=== PATIENT | female | born 2000 | race Caucasian/White ===

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

== ENCOUNTER 2018-03-04 15:39 | Observation (INO) | payer MEDICARE, MEDICAID ==
--- NOTE | 2018-03-04 16:19 | RAD ---
INDICATION: Weakness COMPARISON: October 25, 2015 TECHNIQUE: An AP portable view obtained at 1600 hours is submitted. FINDINGS: Bones/Soft Tissues: There are no acute bony findings. There is a scoliotic deformity. There is a right-sided dual-lumen dialysis catheter Cardiomediastinal: The cardiomediastinal silhouette is normal. Lungs: There are no infiltrates. Pleura: There are no pleural effusions. Other: None IMPRESSION: LUNGS CLEAR. NO ACTIVE DISEASE.
[2018-03-04 16:32] LABS: ABS Basophils 0.1 10^3/ul (0-0.2); ABS Eosinophils 0.1 10^3/ul (0-0.6); ABS Lymphocytes 1.4 10^3/ul (1.0-4.8); ABS Monocytes 0.5 10^3/ul (0-0.8); ABS Nucleated RBC 0 10^3/ul; Eosinophil % 0.7 % (0-6); Hematocrit 38 % (35-47); Hemoglobin 12.7 g/dl (12.0-16.0); Lymphocyte % 15.1 % (25-47); Mean Corpuscular HGB Conc 33 g/dl (31-36); Mean Corpuscular Hemoglobin 32 pg (27-31); Mean Corpuscular Volume 96 fL (80-97); Nucleated Red Blood Cells % 0; Platelet Count 374 10^3/ul (150-450); Red Blood Count 3.99 10^6/ul (4.00-5.40); Red Cell Distribution Width 16 % (10.5-15)
[2018-03-04 16:43] LABS: INR 0.94 (0.77-1.02)
[2018-03-04 16:52] LABS: EGFR Non-African American 7.1 (>60)
[2018-03-04] MEDS ORDERED: Calcium CHLORIDE 10% SYRINGE* 1 GM in D5W 100 ML BAG* 100 ML IV ONE (17:12)
[2018-03-04] MEDS ORDERED: Sodium Bicarbonate 8.4%* 50 ML SYRINGE IV ONE (17:13)
[2018-03-04] MEDS ORDERED: Insulin REGULAR(*) 1 UNITS UNIT IV PUSH ONE (17:14)
[2018-03-04] MEDS ORDERED: Dextrose 50% Syringe 50 ML* 25 GM/50 ML SYRINGE IV PUSH ONE (17:14)
[2018-03-04] MEDS ORDERED: Albuterol 2.5 MG/3 ML NEB.SOL* (0.083%) INH ONE (17:15)
[2018-03-04] MEDS ORDERED: Sodium Polystyrene ORAL.SOL* 15 GM/60 ML BTL PO ONE (17:30)
[2018-03-04] MEDS ORDERED: Acetaminophen TAB* 325 MG PO PRN (17:32)
[2018-03-04] MEDS ORDERED: Al Hydrox/Mg Hydrox/Simet LIQ* 30 ML UDC PO PRN (17:32)
[2018-03-04] MEDS ORDERED: Magnesium Hydroxide LIQ* 30 ML UDC PO PRN (17:32)
[2018-03-04] MEDS ORDERED: Albuterol 2.5 MG/3 ML NEB.SOL* (0.083%) INH PRN (17:32)
[2018-03-04] MEDS ORDERED: Polyethylene Glycol 3350* 17 GM PACKET PO PRN (17:37)
[2018-03-04] MEDS ORDERED: Ondansetron TAB* 4 MG PO PRN (17:37)
--- NOTE | 2018-03-04 18:02 | ED ---
Jeremy Fernández Tiffany, scribed for Ramon Michelle on 03/04/18 at 1606 . Complex/Multi-Sys Presentation - HPI Summary HPI Summary: 17 year old F BIBA to [facility] complains of weakness that began one hour ago. Symptoms aggravated by nothing. Symptoms alleviated by nothing. Patient reports lightheadedness, fatigue, inability to ambulate. Denies fever, cough, abdominal pain, chest pain. Patient has been on hemodialysis since 2007 for renal disease. - History Of Current Complaint Chief Complaint: EDGeneral Time Seen by Provider: 03/04/18 15:42 Hx Obtained From: Patient Onset/Duration: Lasting Hours - 1, Still Present Timing: Constant Aggravating Factor(s): Nothing Alleviating Factor(s): Nothing Associated Signs And Symptoms: Positive: Other - lightheadedness, fatigue, inability to ambulate; fever, cough, abdominal pain, chest pain - Allergies/Home Medications Allergies/Adverse Reactions: Allergies Allergy/AdvReac Type Severity Reaction Status Date / Time No Known Allergies Allergy Verified 03/28/17 04:34 Home Medications: Home Medications Cinacalcet TAB* [Sensipar TAB*] 30 mg PO TID 03/04/18 [History Confirmed ] Lisinopril TAB* [Prinivil TAB*] 5 mg PO DAILY 03/04/18 [History Confirmed ] Ondansetron TAB* [Zofran 4 MG Tab*] 8 mg PO Q8HR PRN 03/04/18 [History Confirmed 03/04/18] Venlafaxine EXT RELEASE CAP* [Effexor Xr CAP*] 75 mg PO QAM 03/04/18 [History Confirmed 03/04/18] PMH/Surg Hx/FS Hx/Imm Hx Previously Healthy: No Cardiovascular History: Reports: Hx Hypertension Respiratory History: Denies: Hx Asthma History: Reports: Hx Renal Disease, Other Problems/Disorders - UTI post kidney transplant, failed kidney transplant Psychiatric History: Denies: Hx Eating Disorder, Hx of Violent Episodes Against Others - Surgical History Surgery Procedure, Year, and Place: s/p kidney transplant surgery 3 yrs ago, failed. appendectomy - Immunization History Date of Tetanus Vaccine: Unk Date of Influenza Vaccine: Fall 2014 Infectious Disease History: No Infectious Disease History: Denies: Traveled Outside the [place] in Last 30 Days - Family History Known Family History: Positive: Hypertension, Other - schizophrenia Negative: Cardiac Disease, Diabetes - Social History Alcohol Use: None Hx Substance Use: No Substance Use Type: Reports: None Hx Tobacco Use: No Smoking Status (MU): Never Smoked Tobacco Review of Systems Positive: Fatigue. Negative: Fever Negative: Chest Pain Negative: Cough Negative: Abdominal Pain Neurological: Other - lightheadedness, inability to ambulate Positive: Weakness All Other Systems Reviewed And Are Negative: Yes Physical Exam - Summary Physical Exam Summary: Appearance: Well appearing, no pain distress Skin: warm, dry, reflects adequate perfusion Head/face: normal Eyes: EOMI, GONZALO ENT: dry mucous membranes Neck: supple, non-tender Respiratory: CTA, breath sounds present Cardiovascular: RRR, pulses symmetrical Chest: patient has catheter on her right chest Abdomen: non-tender, soft Bowel: present Musculoskeletal: patient has a cast on her left forearm Neuro: normal, sensory motor intact, A&Ox3 Triage Information Reviewed: Yes Vital Signs On Initial Exam: Initial Vitals Temp Pulse Resp BP Pulse Ox 98 F 82 16 117/76 99 03/04/18 15:42 03/04/18 15:42 03/04/18 15:42 03/04/18 15:42 03/04/18 15:42 Vital Signs Reviewed: Yes Diagnostics - Vital Signs Vital Signs Temp Pulse Resp BP Pulse Ox 03/04/18 15:42 98 F 82 16 117/76 99 - Laboratory Lab Results: Lab Results 03/04/18 03/04/18 03/04/18 Range/Units 16:19 16:19 16:19 WBC 9.0 (3.5-10.8) 10^3/ul RBC 3.99 L (4.00-5.40) 10^6/ul Hgb 12.7 (12.0-16.0) g/dl Hct 38 (35-47) % MCV 96 (80-97) fL MCH 32 H (27-31) pg MCHC 33 (31-36) g/dl RDW 16 H (10.5-15) % Plt Count 374 (150-450) 10^3/ul MPV 8.0 (7.4-10.4) um3 Neut % (Auto) 77.6 (38-83) % Lymph % (Auto) 15.1 L (25-47) % Morrow % (Auto) 5.9 (0-7) % Eos % (Auto) 0.7 (0-6) % Baso % (Auto) 0.7 (0-2) % Absolute Neuts (auto) 7.0 (1.5-7.7) 10^3/ul Absolute Lymphs (auto) 1.4 (1.0-4.8) 10^3/ul Absolute Monos (auto) 0.5 (0-0.8) 10^3/ul Absolute Eos (auto) 0.1 (0-0.6) 10^3/ul Absolute Basos (auto) 0.1 (0-0.2) 10^3/ul Absolute Nucleated RBC 0 10^3/ul Nucleated RBC % 0 INR (Anticoag Therapy) 0.94 (0.77-1.02) APTT 34.3 (26.0-36.3) seconds Sodium 132 L (135-145) mmol/L Potassium 8.4 H* (3.5-5.0) mmol/L Chloride 88 L (101-111) mmol/L Carbon Dioxide 28 (22-32) mmol/L Anion Gap 16 H (2-11) mmol/L BUN 46 H (6-24) mg/dL Creatinine 7.36 H (0.51-0.95) mg/dL Est GFR ( Amer) 8.6 (>60) Est GFR (Non-Af Amer) 7.1 (>60) BUN/Creatinine Ratio 6.3 L (8-20) Glucose 94 (70-100) mg/dL Lactic Acid (0.5-2.0) mmol/L Calcium 9.5 (8.6-10.3) mg/dL Magnesium 2.5 (1.9-2.7) mg/dL Total Bilirubin 0.40 (0.2-1.0) mg/dL AST 16 (13-39) U/L ALT 9 (7-52) U/L Alkaline Phosphatase 303 H (34-104) U/L Troponin I 0.01 (<0.04) ng/mL B-Natriuretic Peptide ( - 100) pg/mL Total Protein 9.0 H (6.4-8.9) g/dL Albumin 4.8 (3.2-5.2) g/dL Globulin 4.2 H (2-4) g/dL Albumin/Globulin Ratio 1.1 (1-3) Beta HCG, Quant 15.06 mIU/mL 03/04/18 03/04/18 Range/Units 16:19 16:19 WBC (3.5-10.8) 10^3/ul RBC (4.00-5.40) 10^6/ul Hgb (12.0-16.0) g/dl Hct (35-47) % MCV (80-97) fL MCH (27-31) pg MCHC (31-36) g/dl RDW (10.5-15) % Plt Count (150-450) 10^3/ul MPV (7.4-10.4) um3 Neut % (Auto) (38-83) % Lymph % (Auto) (25-47) % Morrow % (Auto) (0-7) % Eos % (Auto) (0-6) % Baso % (Auto) (0-2) % Absolute Neuts (auto) (1.5-7.7) 10^3/ul Absolute Lymphs (auto) (1.0-4.8) 10^3/ul Absolute Monos (auto) (0-0.8) 10^3/ul Absolute Eos (auto) (0-0.6) 10^3/ul Absolute Basos (auto) (0-0.2) 10^3/ul Absolute Nucleated RBC 10^3/ul Nucleated RBC % INR (Anticoag Therapy) (0.77-1.02) APTT (26.0-36.3) seconds Sodium (135-145) mmol/L Potassium (3.5-5.0) mmol/L Chloride (101-111) mmol/L Carbon Dioxide (22-32) mmol/L Anion Gap (2-11) mmol/L BUN (6-24) mg/dL Creatinine (0.51-0.95) mg/dL Est GFR ( Amer) (>60) Est GFR (Non-Af Amer) (>60) BUN/Creatinine Ratio (8-20) Glucose (70-100) mg/dL Lactic Acid 1.3 (0.5-2.0) mmol/L Calcium (8.6-10.3) mg/dL Magnesium (1.9-2.7) mg/dL Total Bilirubin (0.2-1.0) mg/dL AST (13-39) U/L ALT (7-52) U/L Alkaline Phosphatase (34-104) U/L Troponin I (<0.04) ng/mL B-Natriuretic Peptide 408 H ( - 100) pg/mL Total Protein (6.4-8.9) g/dL Albumin (3.2-5.2) g/dL Globulin (2-4) g/dL Albumin/Globulin Ratio (1-3) Beta HCG, Quant mIU/mL Result Diagrams: 03/04/18 16:19 03/04/18 16:19 Lab Statement: Any lab studies that have been ordered have been reviewed, and results considered in the medical decision making process. - Radiology CXR Radiology Interpretation Completed By: Radiologist - LUNGS CLEAR. NO ACTIVE DISEASE. ED physician has reviewed this report. - EKG 15:43 Cardiac Rate: NL - 79 BPM EKG Rhythm: Sinus Rhythm EKG Interpretation: No acute changes. EKG Comparison: Other - tall t waves Complex Multi-Symp Course/Dx Course Of Treatment: 17 year old F BIBA to [facility] complains of weakness that began one hour ago. Bloodwork obtained, showing potassium 8.4. CXR/EKG obtained. Dr. Akers, patient's director of analytical development, advises to send patient to ICU, where he will get her on emergency dialysis. Dr. Kulkarni, hospitalist, agrees to admit patient. - Diagnoses Differential Diagnoses/HQI/PQRI: Metabolic Abnormality, Other - hyperkalemia/ weakness Provider Diagnoses: Hyperkalemia, End stage renal disease, Weakness, Renal dialysis status - Physician Notifications Discussed Care Of Patient With: Juan Alberto Akers Time Discussed With Above Provider: 17:12 Instructed by Provider To: Other - Dr. Akers, nephrology, advises to send patient to ICU and he agrees to get patient to dialysis. Dr. Kulkarni, hospitalist , agrees to admit patient at 17:24. - Critical Care Time Critical Care Time: 30-74 min - 30 minutes Discharge - Sign-Out/Discharge Documenting (check all that apply): Discharge/Admit/Transfer - Admit - Discharge Plan Condition: Critical Disposition: ADMITTED TO [facility] Referrals: Louann Plascencia DO [Doctor of Osteopathy] - - Billing Disposition and Condition Condition: CRITICAL Disposition: Admitted to [facility] The documentation as recorded by the Jeremy cruz Tiffany accurately reflects the service I personally performed and the decisions made by , Ramon Michelle.
[2018-03-04] MEDS ORDERED: Dextrose 50% Syringe 50 ML* 25 GM/50 ML SYRINGE ONE (19:08)
[2018-03-04] MEDS ORDERED: Heparin DIALYSIS ONLY(*) 1,000 UNITS/ML VIAL DIALYSIS ONE (20:00)
[2018-03-04] MEDS: Cinacalcet TAB* 30 MG PO SCH (21:24)
[2018-03-04] MEDS: Labetalol TAB* 200 MG PO SCH (21:24)
--- NOTE | 2018-03-04 21:34 | HP ---
CC: Dr. Akers * ADMISSION HISTORY AND PHYSICAL: DATE OF ADMISSION: 03/04/18 PATIENT OF: Dr. Diallo Kulkarni.* (DICTATED BY MAURIZIO MCQUEEN) PRIMARY AN/SYQ 13 NAV/C2 OPERATOR: Dr. Akers. CHIEF COMPLAINT: Hyperkalemia. HISTORY OF PRESENT ILLNESS: Ms. Swain is a 17-year-old female with past medical history significant for end-stage renal disease for which she has been on dialysis for a period of time. Fortunately, she had a transplant done in 2014 that lasted approximately a year, but unfortunately failed due to noncompliant with her medication and she resumed hemodialysis almost 2 years ago. She presented to the emergency room earlier today with complaints of feeling lightheadedness, fatigue, inability to ambulate, and was found in the ED to have an elevated potassium of 8.4. The patient had her hemodialysis session yesterday and she reports that she felt well afterwards. She went to a birthday constitution party and had excessive amounts of potato chips, fruits, fruit juice, and other potassium-rich diet that she knows well she has to avoid. She got up this morning and noticed some symptoms of lightheadedness, fatigue, but denied any fever, cough, chest pain, or shortness of breath. She has been on hemodialysis since 2007 for a renal disease. 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 Akers. Given her severely elevated potassium, she was given Kayexalate in the emergency room in addition to normal saline, insulin, and dextrose 50 g. The emergency room provider has contacted Dr. Akers, who will send the hemodialysis team to the ICU tonight to perform an urgent hemodialysis session for the patient. Given her ongoing symptoms and elevated potassium, we were asked to see the patient for evaluation and for admission considering hemodialysis tonight. PAST MEDICAL HISTORY: As mentioned above, significant for end-stage renal disease for which she has been on hemodialysis since 2007. She had a kidney transplant that failed a year later and resumed dialysis approximately 2 years ago. PAST SURGICAL HISTORY: Significant for appendectomy and kidney transplant surgery 3 years ago. CURRENT MEDICATIONS: Her medications at home include: 1. Sensipar 30 mg p.o. t.i.d. 2. Trandate 200 mg p.o. b.i.d. 3. Lisinopril 5 mg p.o. daily. 4. Zofran 8 mg p.o. q.8 hours as needed for nausea. 5. MiraLAX 17 g packets p.o. daily. 6. Venlafaxine 75 mg p.o. daily. ALLERGIES: She has no known drug allergies. FAMILY HISTORY: Denies any family history of malignancies; however, reports family history of hypertension and kidney disease. SOCIAL HISTORY: The patient is a nonsmoker. Denies alcohol intake. Caffeine intake is minimal. She lives with her parents and her mom is the healthcare proxy carrier. REVIEW OF SYSTEMS: See HPI. Otherwise 14-point review of systems was discussed and essentially negative. PHYSICAL EXAMINATION GENERAL: She is a pleasant young female, appears comfortable, and in no acute distress or discomfort at the time of admission. VITAL SIGNS: Reveal temperature of 97.7, pulse of 101, blood pressure of 182/ 126, respirations of 18, and O2 sat of 100% on room air. HEENT: Head is normocephalic, atraumatic. Sclerae anicteric. PERRLA. EOMs intact. Oropharynx is pink and moist. NECK: Supple. Trachea midline. No cervical adenopathy or thyromegaly. LUNGS: Clear to auscultation bilaterally. HEART: Regular rate with sinus tachycardia noted. No rubs, murmurs, or gallops. BACK: With normal curvature. No CVA tenderness. BREASTS: Exam deferred at this time. ABDOMEN: Soft, nontender, and nondistended. No hernias, masses, or hepatosplenomegaly. EXTREMITIES: Without cyanosis, clubbing, or edema. NEUROLOGIC: Grossly intact. RECTAL: Exam deferred at this time. LABORATORY DATA: CBC today with white count of 9000, hemoglobin 12.7, hematocrit 38, and platelets of 374. Chemistry panel with sodium of 132, potassium 8.4, chloride 88, CO2 28, BUN 46, and creatinine of 7.36. Alkaline phosphatase is 303, remainder of LFTs within normal limits. Her lipase was elevated at 408. ACCESSORY DIAGNOSTIC DATA: Chest x-ray done today revealed no acute findings. IMPRESSION: A 17-year-old female with end-stage renal disease, who is currently on hemodialysis, presented to the emergency room with symptoms of lightheadedness and fatigue, found to have severe hyperkalemia, and has been admitted to the ICU for observation and to undergo a hemodialysis session tonight. PLAN/RECOMMENDATIONS: 1. End-stage renal disease. The patient will be admitted for close monitoring in the ICU. She appears to be stable at this time. No complaints of chest pain or palpitation. She had sufficient medication to reverse her hyperkalemia including normal saline, insulin, dextrose, and Kayexalate, and the hemodialysis team is en route for hemodialysis session to be performed tonight. We would repeat her labs in the morning to document resolution of hyperkalemia. 2. Hypertension. We will continue her lisinopril and labetalol. 3. DVT prophylaxis. She is a low risk. We will encourage early ambulation. 4. Code status. She is a full code. TIME SPENT: Approximately 45 minutes was spent admitting this patient with greater than 50% taking history and performing physical exam. I discussed the case with Dr. Kulkarni, my attending, who agreed to plan of care and we will await her hemodialysis session and observe her tonight in ICU. MAURIZIO MCQUEEN [id number]/[facility] #: [id number] IRISH
[2018-03-05 04:58] LABS: ABS Basophils 0.1 10^3/ul (0-0.2); ABS Eosinophils 0.1 10^3/ul (0-0.6); ABS Lymphocytes 1.5 10^3/ul (1.0-4.8); ABS Monocytes 0.5 10^3/ul (0-0.8); ABS Neutrophils 4.6 10^3/ul (1.5-7.7); ABS Nucleated RBC 0 10^3/ul; Eosinophil % 1.2 % (0-6); Hematocrit 36 % (35-47); Hemoglobin 11.9 g/dl (12.0-16.0); Mean Corpuscular HGB Conc 33 g/dl (31-36); Mean Corpuscular Hemoglobin 31 pg (27-31); Mean Corpuscular Volume 95 fL (80-97); Mean Platelet Volume 7.9 um3 (7.4-10.4); Nucleated Red Blood Cells % 0; Platelet Count 321 10^3/ul (150-450); Red Cell Distribution Width 16 % (10.5-15); White Blood Count 6.6 10^3/ul (3.5-10.8)
[2018-03-05 05:04] LABS: EGFR Non-African American 10.5 (>60)
[2018-03-05] MEDS: Labetalol TAB* 200 MG PO SCH (07:32)
[2018-03-05 07:38] VITALS: BP 155/118
[2018-03-05] MEDS: Cinacalcet TAB* 30 MG PO SCH (08:42)
[2018-03-05] MEDS ORDERED: Lisinopril TAB* 5 MG PO SCH (09:00)
[2018-03-05] MEDS ORDERED: Venlafaxine EXT RELEASE CAP* 75 MG PO SCH (09:00)
--- NOTE | 2018-03-05 15:57 | DS ---
CC: Dr. Akers DISCHARGE SUMMARY: DATE OF ADMISSION: 03/04/18 DATE OF DISCHARGE: 03/05/18 HISTORY OF PRESENT ILLNESS: This 17-year-old woman was admitted for hyperkalemia. The day after her dialysis session on her off day, she went to a birthday constitution party and ate fruit juice, potato chips, and other items that she knew she was not supposed to be eating. She felt weak and lightheaded. Her pot assium was 8.4 in the emergency room. She was admitted to the ICU and had emergency hemodialysis the next morning. She also had 30 g of Kayexalate the next morning. Her potassium was 4.5. She showed good understanding of what had happened. She said this has happened to her once before in fact she is going to go directly from the ICU to her outpatient hemodialysis session. All her medications wer e kept the same. Her blood pressure was somewhat high in the emergency room and during this hospital stay, this can be accounted for by stress and this is being carefully monitored at the hemodialysis clinic. FINAL DIAGNOSES: 1. Endstage renal disease with hyperkalemia due to dietary indiscretion. 2. Hypertension. DISCHARGE MEDICATIONS: 1. Labetalol 200 mg b.i.d. 2. Polyethylene glycol 17 g daily p.r.n. 3. Lisinopril 5 mg daily. 4. Cinacalcet 30 mg t.i.d. 5. Venlafaxine ER 75 mg daily. 6. Ondansetron 8 mg p.o. every 8 hours p.r.n. [id number]/[facility] #: [id number]
== END 2018-03-05 09:00 | disposition home or self-care (01) ==
LOC: ED 15:39 → ICU 17:32
PROVIDERS: ADMIT Internal Medicine; ATTEND Internal Medicine
DX: E87.5 Hyperkalemia (principal); I12.0 Hypertensive chronic kidney disease with stage 5 chronic kidney disease or end stage renal disease; N18.6 End stage renal disease; Z99.2 Dependence on renal dialysis; R94.31 Abnormal electrocardiogram [ECG] [EKG]; Z94.0 Kidney transplant status
CPT/HCPCS: 36415; 71045; 80053; 83605; 83735; 83880; 84132; 84484; 84702; 85025; 85610; 85730; 87641; 90935; 93005; 96365; 96366; 99284; A9270-GY; G0378; J1644

== ENCOUNTER 2018-03-06 18:37 | Emergency (ER) | payer MEDICARE, OTHER, MEDICAID ==
--- NOTE | 2018-03-06 20:35 | RAD ---
Indication: Nausea, shortness of breath. Dialysis patient. Cardiovascular disease. Comparison: March 04, 2018 Technique: Upright AP 2005 hours Report: Distal tip of tunneled RIGHT chest wall hemodialysis catheter at level of RIGHT atrium. No focal pulmonary lesion, compelling alveolar consolidation, pleural effusion, pneumothorax. Top normal heart size. Unremarkable central pulmonary vasculature and mediastinal contours. IMPRESSION: #. No evidence for acute intrathoracic disease.
[2018-03-06 21:05] LABS: ABS Basophils 0 10^3/ul (0-0.2); ABS Eosinophils 0.1 10^3/ul (0-0.6); ABS Lymphocytes 1.1 10^3/ul (1.0-4.8); ABS Monocytes 0.5 10^3/ul (0-0.8); ABS Neutrophils 9.4 10^3/ul (1.5-7.7); ABS Nucleated RBC 0 10^3/ul; Eosinophil % 1.1 % (0-6); Hematocrit 33 % (35-47); Hemoglobin 10.8 g/dl (12.0-16.0); Lymphocyte % 9.7 % (25-47); Mean Corpuscular HGB Conc 33 g/dl (31-36); Mean Corpuscular Hemoglobin 32 pg (27-31); Mean Corpuscular Volume 96 fL (80-97); Mean Platelet Volume 8.6 um3 (7.4-10.4); Nucleated Red Blood Cells % 0.1; Platelet Count 293 10^3/ul (150-450); Red Blood Count 3.44 10^6/ul (4.00-5.40); Red Cell Distribution Width 16 % (10.5-15); White Blood Count 11.1 10^3/ul (3.5-10.8)
[2018-03-06 21:13] LABS: INR 0.87 (0.77-1.02)
[2018-03-06 21:15] LABS: EGFR Non-African American 5.9 (>60)
[2018-03-06] MEDS ORDERED: Sodium Polystyrene ORAL.SOL* 15 GM/60 ML BTL PO ONE (21:43)
[2018-03-06] MEDS ORDERED: cloNIDine TAB* 0.1 MG ONE (22:38)
--- NOTE | 2018-03-06 22:43 | ED ---
Douglas Fernández Jade, scribed for Ramon Michelle on 03/06/18 at 2004 . Complex/Multi-Sys Presentation - HPI Summary HPI Summary: Pt is a 17 y/o female who presents to the ED c/o fluid retention. She was released from [facility] yesterday after being admitted for a K+ level of 8.4. Pt has a PMHx of chronic renal failure, and a failed kidney transplant. Pt normally gets dialysis every Friday, , and Friday. Her last dialysis was 2 days ago (Friday) but she claims they did not get enough fluid out during her two hour treatment. Pt also did not get her normal treatment the day after. At work today, she started to have SOB, chest tightness, LE edema, diaphoresis, and felt as if she was going to pass out. Pt states she is 10 lbs over her dry weight. - History Of Current Complaint Chief Complaint: EDGeneral Time Seen by Provider: 03/06/18 19:49 Hx Obtained From: Patient Onset/Duration: Gradual Onset, Still Present Timing: Constant Aggravating Factor(s): Lack of proper dialysis Associated Signs And Symptoms: Positive: SOB, Diaphoresis - Allergies/Home Medications Allergies/Adverse Reactions: Allergies Allergy/AdvReac Type Severity Reaction Status Date / Time No Known Allergies Allergy Verified 03/28/17 04:34 PMH/Surg Hx/FS Hx/Imm Hx Cardiovascular History: Reports: Hx Hypertension Respiratory History: Denies: Hx Asthma History: Reports: Hx Chronic Renal Failure, Hx Dialysis, Hx Renal Disease, Other Problems/Disorders - UTI post kidney transplant, failed kidney transplant Sensory History: Denies: Hx Contacts or Glasses, Hx Hearing Aid Opthamlomology History: Denies: Hx Contacts or Glasses Psychiatric History: Denies: Hx Eating Disorder, Hx of Violent Episodes Against Others - Surgical History Surgery Procedure, Year, and Place: s/p kidney transplant surgery 3 yrs ago, failed. appendectomy - Immunization History Date of Tetanus Vaccine: Unk Date of Influenza Vaccine: Fall 2014 Infectious Disease History: No Infectious Disease History: Denies: Traveled Outside the [place] in Last 30 Days - Family History Known Family History: Positive: Hypertension, Other - schizophrenia Negative: Cardiac Disease, Diabetes - Social History Alcohol Use: None Hx Substance Use: No Substance Use Type: Reports: None Hx Tobacco Use: No Smoking Status (MU): Never Smoked Tobacco Review of Systems Positive: Skin Diaphoresis Positive: Other - LE edema Positive: Shortness Of Breath, Other - Chest tightness Positive: Syncope - Near-syncope All Other Systems Reviewed And Are Negative: Yes Physical Exam - Summary Physical Exam Summary: Appearance: Well appearing, no pain distress Skin: warm, dry, reflects adequate perfusion. Fistula on left palm and Tesio catheter on right chest. Head/face: normal Eyes: EOMI, GONZALO ENT: normal Neck: supple, non-tender Respiratory: CTA, breath sounds present Cardiovascular: RRR, pulses symmetrical Abdomen: non-tender, soft Bowel: present Musculoskeletal: normal, strength/ROM intact Neuro: normal, sensory motor intact, A&Ox3 Triage Information Reviewed: Yes Vital Signs On Initial Exam: Initial Vitals Temp Pulse Resp BP Pulse Ox 98 F 90 18 157/114 100 03/06/18 18:54 03/06/18 18:54 03/06/18 18:54 03/06/18 18:54 03/06/18 18:54 Vital Signs Reviewed: Yes Diagnostics - Vital Signs Vital Signs Temp Pulse Resp BP Pulse Ox 03/06/18 18:54 98 F 90 18 157/114 100 - Laboratory Result Diagrams: 03/06/18 20:48 03/06/18 20:48 Lab Statement: Any lab studies that have been ordered have been reviewed, and results considered in the medical decision making process. - Radiology CXR Xray Interpretation: No Acute Changes - 19:58 No evidence for acute intrathoracic disease. ED physician reviewed radiology report. Radiology Interpretation Completed By: Radiologist - EKG 21:02 Cardiac Rate: NL - 80 bpm EKG Rhythm: Sinus Rhythm EKG Interpretation: No acute changes Complex Multi-Symp Course/Dx Course Of Treatment: Pt is a 17 y/o female c/o fluid retention who was released from [facility] yesterday after being admitted for a K+ level of 8.4. Pt has a PMHx of chronic renal failure, and a failed kidney transplant. Today she started to have SOB, chest tightness, LE edema, diaphoresis, and near-syncope after not getting her proper dialysis. A physical exam revealed a fistula on left palm and Tesio catheter on right chest. A CXR was normal, and an EKG was normal with sinus rhythm and normal rate of 80 bpm. Blood work/UA obtained. At 21:43 Dr. Jimenez was consulted, who said the pt can be discharged and have her normal dialysis tomorrow. Final dx are end stage renal disease and hyperkalemia. Pt is agreeable with this plan. - Diagnoses Differential Diagnoses/HQI/PQRI: Metabolic Abnormality, Other - esrd on hd Provider Diagnoses: End stage renal disease, Hyperkalemia - Physician Notifications Discussed Care Of Patient With: Azalea Jimenez Time Discussed With Above Provider: 21:43 Instructed by Provider To: Other - Pt is fine to be sent home and is to have dialysis treatment tomorrow. Discharge - Sign-Out/Discharge Documenting (check all that apply): Discharge/Admit/Transfer - Discharge - Discharge Plan Condition: Stable Disposition: HOME Patient Education Materials: Hyperkalemia (ED), End Stage Kidney Disease (ED) Referrals: [facility] PHYSICIAN REFERRAL [Outside] - 3 Days Azalea Jimenez MD [Medical Doctor] - 1 Day - Billing Disposition and Condition Condition: STABLE Disposition: Home The documentation as recorded by the Douglas cruz Jade accurately reflects the service I personally performed and the decisions made by , Ramon Michelle.
[2018-03-06] MEDS ORDERED: cloNIDine TAB* 0.1 MG PO ONE (22:44)
[2018-03-06] MEDS ORDERED: Labetalol TAB* 200 MG PO ONE (22:47)
[2018-03-06] MEDS ORDERED: Lisinopril TAB* 5 MG PO ONE (22:47)
[2018-03-06] MEDS ORDERED: NIFEdipine CAP* 10 MG PO ONE (22:47)
[2018-03-07 01:34] VITALS: BP 109/60
== END 2018-03-07 01:35 | disposition home or self-care (01) ==
LOC: ED 18:37
DX: I12.0 Hypertensive chronic kidney disease with stage 5 chronic kidney disease or end stage renal disease (principal); N18.6 End stage renal disease; T86.12 Kidney transplant failure; E87.5 Hyperkalemia; Z99.2 Dependence on renal dialysis
CPT/HCPCS: 36415; 71045; 80053; 83880; 84484; 85025; 85610; 85730; 93005; 99284; A9270-GY

== ENCOUNTER 2018-04-03 19:12 | Inpatient (IN) | payer MEDICARE, MEDICAID ==
[2018-04-03] MEDS ORDERED: Morphine VIAL* 4 MG/ML VIAL (1 ml vial) IV ONE ×2 (19:58→22:37)
[2018-04-03] MEDS ORDERED: Acetaminophen TAB* 325 MG PO ONE (19:58)
[2018-04-03] MEDS ORDERED: Vancomycin(*) 1,000 MG in NS 0.9% 250 ML* 250 ML IVPB ONE (19:59)
[2018-04-03] MEDS ORDERED: cefTRIAXone(*) 1 GM in NS 0.9% 50 ML* 50 ML IVPB ONE (19:59)
--- NOTE | 2018-04-03 20:01 | ED ---
Headache - HPI Summary HPI Summary: A 17 y/o F presents to ED with FLORES onset three days ago and worsening today. Pt is on dialysis (fistula on LUE), last treatment was yesterday AM. Associated sx : diaphoresis, subjective fever, mild photophobia, elevated BP, weakness, tremors. Denies diarrhea, nausea. Pt took nausea medicine GLASS [employer]. Pt is on her mentrual cycle so is unsure if she's having abd pain unrelated to that. She relates that her nurse yesterday said there was a "spot' on her fistula, provider reviewed at bedside. Pt cannot have IBP due to dialysis treatment. She has been on dialysis for 10 years, an episode of strep throat progressed to kidney failure. This is scribe, Sidney Guthrie, documenting for attending Dr. Mauri MD. - History Of Current Complaint Chief Complaint: EDHeadache Stated Complaint: SHAKY/SOB/DIALYSIS PATIENT Time Seen by Provider: 04/03/18 19:56 Hx Obtained From: Patient, Family/Supervisor [employer] - family present Onset/Duration: Gradual Onset, Started days ago, Still Present Initially Headache Was: Mild Currently Pain Is: Current Pain Scale(0-10)= - 7, Moderate Timing: Constant Character: Throbbing - and aching Aggravating Factor: Bright Lights Associated Signs And Symptoms: Fever, Visual Changes - photophobia - Allergies/Home Medications Allergies/Adverse Reactions: Allergies Allergy/AdvReac Type Severity Reaction Status Date / Time ibuprofen Allergy GI Upset Verified 04/04/18 08:45 PMH/Surg Hx/FS Hx/Imm Hx Previously Healthy: No Cardiovascular History: Reports: Hx Hypertension Respiratory History: Denies: Hx Asthma History: Reports: Hx Chronic Renal Failure, Hx Dialysis, Hx Renal Disease, Other Problems/Disorders - UTI post kidney transplant, failed kidney transplant Sensory History: Denies: Hx Contacts or Glasses, Hx Hearing Aid Opthamlomology History: Denies: Hx Contacts or Glasses Psychiatric History: Denies: Hx Eating Disorder, Hx of Violent Episodes Against Others - Surgical History Surgery Procedure, Year, and Place: s/p kidney transplant surgery 3 yrs ago, failed. appendectomy - Immunization History Date of Tetanus Vaccine: Unk Date of Influenza Vaccine: Fall 2014 Immunizations Up to Date: Yes Infectious Disease History: Yes Infectious Disease History: Denies: Traveled Outside the [place] in Last 30 Days - Family History Known Family History: Positive: Hypertension, Other - schizophrenia Negative: Cardiac Disease, Diabetes - Social History Occupation: Student Lives: With Family Alcohol Use: None Hx Substance Use: No Substance Use Type: Reports: None Hx Tobacco Use: No Smoking Status (MU): Never Smoked Tobacco Review of Systems Positive: Fever, Skin Diaphoresis Positive: Photophobia Positive: Other - elevated BP Negative: Diarrhea, Nausea Musculoskeletal: Other - tremors Positive: Other - fistula on LUE Positive: Headache, Weakness All Other Systems Reviewed And Are Negative: Yes Physical Exam - Summary Physical Exam Summary: Appearance: Well-appearing, Well-nourished, lying in bed comfortably. Feverish. Dialysis fistula has good thrill Skin: Warm, dry, no obvious rash Eyes: sclera anicteric, no conjunctival pallor ENT: mucous membranes moist, pharynx appears normal Neck: Supple, nontender. No meningismus. Respiratory: Clear to auscultation, no signs of respiratory distress Cardiovascular: Normal S1, S2. No murmurs. Normal distal pulses in tibial and radial bilaterally. Tachycardic. HTN 163/130. Abdomen: Soft, nontender, normal active bowel sounds present Musculoskeletal: Normal, Strength/ROM Intact Neurological: A&Ox3, awake and alert, mentation is normal, speech is fluent and appropriate Psychiatric: affect is normal, does not appear anxious or depressed Triage Information Reviewed: Yes Vital Signs On Initial Exam: Initial Vitals Temp Pulse Resp BP Pulse Ox 101 F 118 26 163/130 100 04/03/18 19:13 04/03/18 19:13 04/03/18 19:13 04/03/18 19:13 04/03/18 19:13 Vital Signs Reviewed: Yes Diagnostics - Vital Signs Vital Signs Temp Pulse Resp BP Pulse Ox 04/03/18 19:27 177/123 04/03/18 19:13 101 F 118 26 163/130 100 - Laboratory Result Diagrams: 04/03/18 20:54 04/04/18 04:30 Lab Statement: Any lab studies that have been ordered have been reviewed, and results considered in the medical decision making process. - Radiology CXR Xray Interpretation: No Acute Changes - IMPRESSION: No active dz. ED physician has reviewed this radiology report and agrees. Radiology Interpretation Completed By: Radiologist - EKG 2152 Cardiac Rate: Tachycardia - 108bpm EKG Rhythm: Sinus Tachycardia EKG Interpretation: QRS waves without significant T-wave peaking Headache Course/Dx - Diagnoses Provider Diagnoses: Fever, Line sepsis associated with dialysis catheter, Hypertensive urgency, Hyperkalemia - Physician Notifications Discussed Care Of Patient With: Manjeet Ziegler - hospitalist Time Discussed With Above Provider: 22:20 Instructed by Provider To: Admit As Inpatient - Critical Care Time Critical Care Time: 30-74 min - Gentleman on hemodialysis with acute fever suggestive of sepsis, possible line sepsis, associated with marked hyperkalemia , fortunately without significant EKG changes. Patient required frequent re- evaluations and emergent management of her hyperkalemia. Discharge - Sign-Out/Discharge Documenting (check all that apply): Patient Departure - Discharge Plan Condition: Stable Disposition: ADMITTED TO [facility] - Billing Disposition and Condition Condition: STABLE Disposition: Admitted to [facility]
[2018-04-03] MEDS ORDERED: Diazepam TAB(*) 5 MG PO ONE (20:07)
[2018-04-03] MEDS ORDERED: Morphine VIAL* 10 MG/ML 1 ML VIAL ONE (20:22)
[2018-04-03] MEDS ORDERED: cefTRIAXone(*) 1 GM ADVAN/BAG ONE (20:23)
[2018-04-03 21:06] LABS: ABS Basophils 0 10^3/ul (0-0.2); ABS Eosinophils 0 10^3/ul (0-0.6); ABS Lymphocytes 0.4 10^3/ul (1.0-4.8); ABS Monocytes 0.7 10^3/ul (0-0.8); ABS Neutrophils 7.1 10^3/ul (1.5-7.7); ABS Nucleated RBC 0 10^3/ul; Eosinophil % 0.3 % (0-6); Hematocrit 42 % (35-47); Hemoglobin 13.6 g/dl (12.0-16.0); Lymphocyte % 5.3 % (25-47); Mean Corpuscular HGB Conc 32 g/dl (31-36); Mean Corpuscular Hemoglobin 30 pg (27-31); Mean Corpuscular Volume 94 fL (80-97); Mean Platelet Volume 8.4 um3 (7.4-10.4); Nucleated Red Blood Cells % 0; Platelet Count 225 10^3/ul (150-450); Red Blood Count 4.48 10^6/ul (4.00-5.40); Red Cell Distribution Width 15 % (10.5-15); White Blood Count 8.3 10^3/ul (3.5-10.8)
[2018-04-03] MEDS ORDERED: diPHENhydraMINE IV* 50 MG/ML 1 ml VIAL (BENADRYL) ONE (21:20)
[2018-04-03 21:22] LABS: INR 0.9 (0.77-1.02)
[2018-04-03 21:26] LABS: EGFR Non-African American 4.7 (>60)
[2018-04-03] MEDS ORDERED: Dextrose 50% VIAL 50 ml IV ONE (21:32)
[2018-04-03] MEDS ORDERED: Insulin REGULAR(*) 1 UNITS UNIT IV PUSH ONE (21:32)
[2018-04-03] MEDS ORDERED: Sodium Polystyrene ORAL.SOL* 15 GM/60 ML BTL PO ONE (21:33)
[2018-04-03] MEDS ORDERED: Dextrose 50% Syringe 50 ML* 25 GM/50 ML SYRINGE IV PUSH ONE (22:00)
--- NOTE | 2018-04-03 22:04 | RAD ---
INDICATION: Fever COMPARISON: March 06, 2018 TECHNIQUE: PA and lateral dual-energy views were obtained. FINDINGS: Bones/Soft Tissues: There are no acute bony findings. There is a right-sided central venous catheter. There is ORIF of a midshaft humeral fracture Cardiomediastinal: The cardiomediastinal silhouette is normal. Lungs: There are no infiltrates. Pleura: There are no pleural effusions. Other: None IMPRESSION: NO ACTIVE DISEASE. R1
--- NOTE | 2018-04-03 23:07 | HP ---
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 She reports onset 3 days ago of typical hypertensive headache with mild photophobia. She denies F/C, sweats, N/V/D, SOB , cough, visual changes, or other issues. The headache worsened today making her concerned as she has had a seizure in the past 2nd hypertensive emergency. She reports some soreness at the posterior base of the skull, but has full, easy active & passive ROM. ED evaluation is notable for BP in the 160-170 systolics and a K of 7.5 with mild/mod peaking of T-waves. She does admit to dietary indiscretion over the past few days involving increased dairy intake. She has been give insulin/glucose, & kayexalate in the ED. There was initially some concern for potential meningitis held by the ED provider and so blood CXs were drawn and she was dosed with vancomycin & ceftriaxone. However, I do not hold any significant suspicion at this time. Her WBCs are 8.3, vitals are stable, & she is afebrile. No indication for further ABX at this time. She will be placed in the ICU for close monitoring of her vitals, serial electrolyte checks, & Q1H glucometry to prevent hypoglycemia. Dr Akers was consulted via phone and agreed with discharge to outpatient dialysis earlier in the morning. 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 since failed 2nd non-adherence HTN 2nd above HX hypertensive emergency w/ seizure depression/anxiety Ambulatory Orders Labetalol TAB* [Trandate TAB*] 200 mg PO BID 07/26/15 Polyethylene Glycol 3350* [Miralax*] 17 gm PO DAILY PRN 10/25/15 Cinacalcet TAB* [Sensipar TAB*] 30 mg PO TID 03/04/18 Lisinopril TAB* [Prinivil TAB 5 MG*] 5 mg PO DAILY 03/04/18 Ondansetron TAB* [Zofran 4 MG Tab*] 8 mg PO Q8HR PRN 03/04/18 Venlafaxine EXT RELEASE CAP* [Effexor Xr CAP*] 75 mg PO QAM 03/04/18 Allergies No Known Allergies Allergy (Verified 03/28/17 04:34) PSurgHx renal transplant appendectomy LUE hemodialysis fistula R anterior chest tunnelled HD catheter SocHx: no tobacco, alcohol, or recreational drugs; single, no children, lives with her parents; disabled; full code status FamHx: positive for HTN & renal disease ROS: as above, otherwise reviewed and all were negative vitals: Vital Signs Temp 38.3 C 04/03/18 19:13 Pulse 119 04/03/18 21:27 Resp 20 04/03/18 21:27 BP 170/121 04/03/18 21:27 Pulse Ox 91 04/03/18 21:27 Intake & Output 04/02/18 04/03/18 04/03/18 23:59 11:59 23:59 Intake Total 100 Balance 100 Weight 47.627 kg Intake: IV Fluids 50 IVPB 50 Constitutional: NAD, normally developed, thin white female HEENM: atraumatic; sclera/conjunctiva: anicteric/mildly injected OU; hearing: clinically intact; oropharynx: clear, mucosa moist Neck: soft tissue: no nuchal rigidity or restricted ROM; thyroid: normal Pulmonary: clear to auscultation bilaterally, good aeration, no accessory muscle use CV: RR/RR, normal S1S2, no carotid bruit, no jugular venous distention, 2+ B DP/ PT, no edema Abdominal: soft, non-distended, non-tender, no rebound/guarding/rigidity, normoactive bowel sounds, no hepatosplenomegaly or masses, no costovertebral angle tenderness Musculoskeletal: general: grossly intact; gait: stable Integumental: HD fistula LUE, tunnelled dialysis catheter R anterior chest; otherwise normal appearance and texture of exposed skin Psychiatric orientation: AA&O to PPS affect: calm mood: cooperative, pleasant eye contact: good content: reliable responses: timely insight: good Testing: Lab Results 04/03/18 04/03/18 04/03/18 Range/Units 20:54 20:54 20:54 WBC 8.3 (3.5-10.8) 10^3/ul RBC 4.48 (4.00-5.40) 10^6/ul Hgb 13.6 (12.0-16.0) g/dl Hct 42 (35-47) % MCV 94 (80-97) fL MCH 30 (27-31) pg MCHC 32 (31-36) g/dl RDW 15 (10.5-15) % Plt Count 225 (150-450) 10^3/ul MPV 8.4 (7.4-10.4) um3 Neut % (Auto) 85.1 H (38-83) % Lymph % (Auto) 5.3 L (25-47) % Toombs % (Auto) 8.9 H (0-7) % Eos % (Auto) 0.3 (0-6) % Baso % (Auto) 0.4 (0-2) % Absolute Neuts (auto) 7.1 (1.5-7.7) 10^3/ul Absolute Lymphs (auto) 0.4 L (1.0-4.8) 10^3/ul Absolute Monos (auto) 0.7 (0-0.8) 10^3/ul Absolute Eos (auto) 0 (0-0.6) 10^3/ul Absolute Basos (auto) 0 (0-0.2) 10^3/ul Absolute Nucleated RBC 0 10^3/ul Nucleated RBC % 0 INR (Anticoag Therapy) 0.90 (0.77-1.02) APTT 31.6 (26.0-36.3) seconds Sodium 128 L (135-145) mmol/L Potassium 7.5 H* (3.5-5.0) mmol/L Chloride 90 L (101-111) mmol/L Carbon Dioxide 19 L (22-32) mmol/L Anion Gap 19 H (2-11) mmol/L BUN 65 H (6-24) mg/dL Creatinine 10.54 H (0.51-0.95) mg/dL Est GFR ( Amer) 5.7 (>60) Est GFR (Non-Af Amer) 4.7 (>60) BUN/Creatinine Ratio 6.2 L (8-20) Glucose 95 (70-100) mg/dL Lactic Acid (0.5-2.0) mmol/L Calcium 11.2 H (8.6-10.3) mg/dL Total Bilirubin 0.40 (0.2-1.0) mg/dL AST 11 L (13-39) U/L ALT 6 L (7-52) U/L Alkaline Phosphatase 257 H (34-104) U/L Troponin I 0.00 (<0.04) ng/mL Total Protein 8.0 (6.4-8.9) g/dL Albumin 4.4 (3.2-5.2) g/dL Globulin 3.6 (2-4) g/dL Albumin/Globulin Ratio 1.2 (1-3) 04/03/18 Range/Units 21:35 WBC (3.5-10.8) 10^3/ul RBC (4.00-5.40) 10^6/ul Hgb (12.0-16.0) g/dl Hct (35-47) % MCV (80-97) fL MCH (27-31) pg MCHC (31-36) g/dl RDW (10.5-15) % Plt Count (150-450) 10^3/ul MPV (7.4-10.4) um3 Neut % (Auto) (38-83) % Lymph % (Auto) (25-47) % Toombs % (Auto) (0-7) % Eos % (Auto) (0-6) % Baso % (Auto) (0-2) % Absolute Neuts (auto) (1.5-7.7) 10^3/ul Absolute Lymphs (auto) (1.0-4.8) 10^3/ul Absolute Monos (auto) (0-0.8) 10^3/ul Absolute Eos (auto) (0-0.6) 10^3/ul Absolute Basos (auto) (0-0.2) 10^3/ul Absolute Nucleated RBC 10^3/ul Nucleated RBC % INR (Anticoag Therapy) (0.77-1.02) APTT (26.0-36.3) seconds Sodium (135-145) mmol/L Potassium (3.5-5.0) mmol/L Chloride (101-111) mmol/L Carbon Dioxide (22-32) mmol/L Anion Gap (2-11) mmol/L BUN (6-24) mg/dL Creatinine (0.51-0.95) mg/dL Est GFR ( Amer) (>60) Est GFR (Non-Af Amer) (>60) BUN/Creatinine Ratio (8-20) Glucose (70-100) mg/dL Lactic Acid 0.7 (0.5-2.0) mmol/L Calcium (8.6-10.3) mg/dL Total Bilirubin (0.2-1.0) mg/dL AST (13-39) U/L ALT (7-52) U/L Alkaline Phosphatase (34-104) U/L Troponin I (<0.04) ng/mL Total Protein (6.4-8.9) g/dL Albumin (3.2-5.2) g/dL Globulin (2-4) g/dL Albumin/Globulin Ratio (1-3) ECG, personally reviewed: sinus tachycardia rate 108, no ischemia, mild/ moderately peaked T-waves CXR, personally reviewed: IMPRESSION: NO ACTIVE DISEASE. Impression: 17F HX ESRD-HD TueThuSat presents with headache & found to have a K of 7.5 DIAGNOSIS & PLAN Primary hyperKalemia of ESRD-HD TueThuSat 2nd dietary indiscretion, no missed sessions : given kayexalate & insulin/glucose in ED : ICU monitoring : trend electrolytes : medical management : Guillermina Akers MD consulted & agreed w/ early discharge to outpatient dialysis in AM : continue citacalcet : supportive care cephalgia : improved from 5/10 to 2/10 with 4mg morphine IV & 5mg diazepam PO : acetaminophen PRN : currently sleeping in ED room HTN : systolics initially 170s, now 140-150s : continue lisinopril & labetalol Secondary anxiety/depression : continue venlafaxine Admission Rational: Inpatient as without the above interventions the risk of impending adverse outcome is unacceptably high; inappropriate for the outpatient setting DVTp: CYN Code Status: full HCP: father, Ian Avila Critical Care time: 60minutes with >50% spent at the bedside obtaining a history , performing the examination, advising of diagnosis & treatment options along with risks/benefits/reasoning; remainder spent discussing with ER MD, reviewing labs and radiology exams
[2018-04-03] MEDS ORDERED: Acetaminophen TAB* 325 MG PO PRN (23:29)
[2018-04-03] MEDS ORDERED: Ondansetron TAB* 4 MG PO PRN (23:30)
[2018-04-03] MEDS ORDERED: Melatonin 3 MG TAB PO PRN (23:30)
[2018-04-04 01:57] LABS: EGFR Non-African American 4.4 (>60)
[2018-04-04] MEDS ORDERED: Calcium Gluconate INJ* 1 GM in NS 0.9% 100 ML* 100 ML IVPB ONE (02:04)
[2018-04-04] MEDS ORDERED: Insulin REGULAR(*) 1 UNITS UNIT IV PUSH ONE (02:08)
[2018-04-04] MEDS ORDERED: Dextrose 50% Syringe 50 ML* 25 GM/50 ML SYRINGE IV PUSH ONE ×3 (02:08→05:50)
[2018-04-04] MEDS ORDERED: Dextrose 50% Syringe 50 ML* 25 GM/50 ML SYRINGE ONE (03:46)
[2018-04-04] MEDS ORDERED: Lidocaine 2.5%/Prilocain 2.5%* 5 GM TUBE TOPICAL ONE (04:30)
[2018-04-04] MEDS ORDERED: Morphine INJ* 2 MG/ML 1 ML SYRINGE (TWO MG - NEW SYRINGE VERSION) IV ONE (04:49)
[2018-04-04 04:56] LABS: EGFR Non-African American 4.4 (>60)
[2018-04-04 06:27] VITALS: BP 128/86
--- NOTE | 2018-04-04 07:17 | DS ---
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 She reports onset 3 days ago of typical hypertensive headache with mild photophobia. She denies F/C, sweats, N/V/D, SOB , cough, visual changes, or other issues. The headache worsened today making her concerned as she has had a seizure in the past 2nd hypertensive emergency. She reports some soreness at the posterior base of the skull, but has full, easy active & passive ROM. ED evaluation is notable for BP in the 160-170 systolics and a K of 7.5 with mild/mod peaking of T-waves. She does admit to dietary indiscretion over the past few days involving increased dairy intake. She has been give insulin/glucose, & kayexalate in the ED. There was initially some concern for potential meningitis held by the ED provider and so blood CXs were drawn and she was dosed with vancomycin & ceftriaxone. However, I do not hold any significant suspicion of significant infectious burden at this time. Her WBCs are 8.3, vitals are stable, & she is afebrile. She does not meed SIRS or qSOFA criteria. No indication for further ABX at this time. She will be placed in the ICU for close monitoring of her vitals, serial electrolyte checks, & Q1H glucometry to prevent hypoglycemia. Dr Akers was consulted via phone and agreed with discharge to outpatient dialysis earlier in the morning. Hospital Course Ms Swain was admitted to the ICU after insulin/dextrose & kayexalate given in ED. Initial electrolyte recheck did not show significant improvement in K resulting in a 2nd dose of insulin/dextrose and 1g calcium gluconate. She did develop asymptomatic hypoglycemia to ~46 resulting in additional D50 & PO apple juice administration. Dr Akers was consulted via phone and we agreed the best option for her was early AM discharge to her routine outpatient dialysis. He was apprised of her hypoglycemia. We agreed to give her an additional amp of D50 and discharge her to AM dialysis where her sugars could be further monitored. She was explained this and was in agreement. She expressed understanding of the importance of follow her renal diet. Discharge Exam AA&O to PPTS, no lethargy or somnolence Radiology Exams CXR, personally reviewed: IMPRESSION: NO ACTIVE DISEASE. Discharge Medications NEW none RESUME Labetalol TAB* [Trandate TAB*] 200 mg PO BID 07/26/15 Polyethylene Glycol 3350* [Miralax*] 17 gm PO DAILY PRN 10/25/15 Cinacalcet TAB* [Sensipar TAB*] 30 mg PO TID 03/04/18 Lisinopril TAB* [Prinivil TAB 5 MG*] 5 mg PO DAILY 03/04/18 Ondansetron TAB* [Zofran 4 MG Tab*] 8 mg PO Q8HR PRN 03/04/18 Venlafaxine EXT RELEASE CAP* [Effexor Xr CAP*] 75 mg PO QAM 03/04/18 STOP none Discharge Activity: ad cedric Discharge Diet: strict renal diet Follow Up/CC outpatient dialysis this AM Time for Discharge: <30min
[2018-04-04] MEDS ORDERED: Labetalol TAB* 200 MG PO SCH (09:00)
[2018-04-04] MEDS ORDERED: Lisinopril TAB* 5 MG PO SCH (09:00)
[2018-04-04] MEDS ORDERED: Cinacalcet TAB* 30 MG PO SCH (09:00)
[2018-04-04] MEDS ORDERED: Venlafaxine EXT RELEASE CAP* 75 MG PO SCH (09:00)
== END 2018-04-07 19:44 | disposition home or self-care (01) | DRG 640 ==
LOC: ED 19:12 → ICU 23:24 → UNDODISIN 04-04 06:40
PROVIDERS: ADMIT Hospitalist; ATTEND Hospitalist
PROC: 5A1D70Z Performance of Urinary Filtration, Intermittent, Less than 6 Hours Per Day (ICD-10-PCS; principal; 2018-04-04)
PROC: 5A1D70Z Performance of Urinary Filtration, Intermittent, Less than 6 Hours Per Day (ICD-10-PCS; 2018-04-04)
PROC: 05PYX3Z Removal of Infusion Device from Upper Vein, External Approach (ICD-10-PCS; 2018-04-04)
PROC: 009U3ZX Drainage of Spinal Canal, Percutaneous Approach, Diagnostic (ICD-10-PCS; 2018-04-04)
PROC: 02HV33Z Insertion of Infusion Device into Superior Vena Cava, Percutaneous Approach (ICD-10-PCS; 2018-04-04)
DX: E87.5 Hyperkalemia (principal); N18.6 End stage renal disease; A41.1 Sepsis due to other specified staphylococcus; I12.0 Hypertensive chronic kidney disease with stage 5 chronic kidney disease or end stage renal disease; Z94.0 Kidney transplant status; T82.7XXA Infection and inflammatory reaction due to other cardiac and vascular devices, implants and grafts, initial encounter; T86.12 Kidney transplant failure; R51 Headache; H53.149 Visual discomfort, unspecified; F32.9 Major depressive disorder, single episode, unspecified; F41.9 Anxiety disorder, unspecified; E16.1 Other hypoglycemia; Z99.2 Dependence on renal dialysis; Z88.6 Allergy status to analgesic agent; Z87.440 Personal history of urinary (tract) infections; Z81.8 Family history of other mental and behavioral disorders; Z82.49 Family history of ischemic heart disease and other diseases of the circulatory system; Z91.14 Patient's other noncompliance with medication regimen; Z84.1 Family history of disorders of kidney and ureter; Z79.899 Other long term (current) drug therapy; X58.XXXA Exposure to other specified factors, initial encounter; Y92.9 Unspecified place or not applicable
CPT/HCPCS: 36415; 71045; 71046; 80048; 80053; 80202; 82945; 83605; 83735; 83880; 84145; 84157; 84484; 85025; 85610; 85730; 86140; 86618; 86666; 86753; 87040; 87070; 87071; 87077; 87150; 87205; 87529; 87641; 87798; 87899; 89051; 90935; 93005; 99285; A9270-GY; C1751; G0257; J0610; J0696; J1200; J1644; J1885; J2250; J2270; J2405; J2543; J3370

== ENCOUNTER 2018-04-04 08:24 | Inpatient (IN) | payer MEDICARE, MEDICAID ==
[2018-04-04] MEDS ORDERED: Piperacillin/Tazobac ADVAN(*) 3.375 GM in NS 0.9% 100 ML* 100 ML IVPB ONE (08:42)
[2018-04-04] MEDS ORDERED: Acetaminophen TAB* 325 MG PO ONE (08:51)
[2018-04-04] MEDS ORDERED: Vancomycin(*) 1,000 MG VIAL IVPB SCH (09:00)
--- NOTE | 2018-04-04 09:31 | ED ---
HPI Febrile Illness - HPI Summary HPI Summary: This is nancy Benson documenting for attending Dr. Miguel Angel Shi This patient is a 17 year old F presenting to [facility] with a chief complaint of fever since 04/03/18. Pt endorses FLORES, chills and fever, and denies chest, abd pain. PMHx dialysis, does not urinate. Pt was here last night for same reason + severe FLORES. 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 Akers sent the pt to the ED. - History of Current Complaint Chief Complaint: EDFever Time Seen by Provider: 04/04/18 08:37 Hx Obtained From: Patient Onset/Duration: Started Days Ago, Still Present Timing: Constant Initial Severity: Moderate Current Severity: Moderate Pain Intensity: 8 Pain Scale Used: 0-10 Numeric Aggravating Factors: Nothing Alleviating Factors: Nothing Associated Signs and Symptoms: Chills, Headache, Nausea - Allergy/Home Medications Allergies/Adverse Reactions: Allergies Allergy/AdvReac Type Severity Reaction Status Date / Time ibuprofen Allergy GI Upset Verified 04/04/18 08:45 PMH/Surg Hx/FS Hx/Imm Hx Endocrine/Hematology History: Reports: Hx Blood Transfusions, Hx Thyroid Disease - Hyperthyroid, Hx Anemia Cardiovascular History: Reports: Hx Hypertension Respiratory History: Denies: Hx Asthma History: Reports: Hx Chronic Renal Failure, Hx Dialysis, Hx Renal Disease, Other Problems/Disorders - UTI post kidney transplant, failed kidney transplant Sensory History: Denies: Hx Contacts or Glasses, Hx Legally Blind, Hx Hearing Aid Opthamlomology History: Denies: Hx Contacts or Glasses, Hx Legally Blind EENT History: Denies: Hx Deafness Neurological History: Reports: Hx Headaches, Hx Seizures Psychiatric History: Reports: Hx Anxiety, Hx Depression Denies: Hx Eating Disorder, Hx of Violent Episodes Against Others - Surgical History Surgery Procedure, Year, and Place: s/p kidney transplant surgery 3 yrs ago, failed. appendectomy Hx Anesthesia Reactions: No - Immunization History Date of Tetanus Vaccine: Unk Date of Influenza Vaccine: Fall 2014 Infectious Disease History: No Infectious Disease History: Reports: Hx Clostridium Difficile Denies: Traveled Outside the [place] in Last 30 Days - Family History Known Family History: Positive: Hypertension, Other - schizophrenia Negative: Cardiac Disease, Diabetes - Social History Alcohol Use: None Hx Substance Use: No Substance Use Type: Reports: None Hx Tobacco Use: No Smoking Status (MU): Never Smoked Tobacco Review of Systems Positive: Fever, Chills Negative: Chest Pain Positive: Nausea. Negative: Abdominal Pain Positive: Headache All Other Systems Reviewed And Are Negative: Yes Physical Exam - Summary Physical Exam Summary: Appearance: Well appearing, no pain distress, tesio catheter in right chest, chills/tremulous Skin: warm, dry, reflects adequate perfusion Head/face: normal Eyes: EOMI, GONZALO ENT: normal Neck: supple, non-tender Respiratory: CTA, breath sounds present Cardiovascular: Tachycardic, pulses symmetrical Abdomen: non-tender, soft Bowel: present Musculoskeletal: normal, strength/ROM intact Neuro: normal, sensory motor intact, A&Ox3 Triage Information Reviewed: Yes Vital Signs On Initial Exam: Initial Vitals Temp Pulse Resp BP Pulse Ox 102.4 F 113 14 183/138 95 04/04/18 08:28 04/04/18 08:28 04/04/18 08:28 04/04/18 08:28 04/04/18 08:28 Vital Signs Reviewed: Yes Diagnostics - Vital Signs Vital Signs Temp Pulse Resp BP Pulse Ox 04/04/18 08:28 102.4 F 113 14 183/138 95 - Laboratory Result Diagrams: 04/04/18 09:54 04/04/18 09:54 Lab Statement: Any lab studies that have been ordered have been reviewed, and results considered in the medical decision making process. - Radiology CXR Xray Interpretation: No Acute Changes Radiology Interpretation Completed By: Radiologist - No active disease. Dr. Michelle has reviewed this report. - EKG 0902 Cardiac Rate: Tachycardia - 135 EKG Rhythm: Sinus Tachycardia ST Segment: Normal Ectopy: None EKG Interpretation: no acute changes Course/Dx - Course Course Of Treatment: A 17-year-old F presents to the ED with a CC of fever since last PM. (+) chills, shakes, nausea. (-) CP, abd pain. Dialysis, end stage renal failure. A CXR reveals no active disease. An EKG reveals sinus tachycardia at 135 bpm, no acute changes. In the ED course, pt was given zofran , tylenol, morphine, vancomycin, tanzobactam. Difficulty obtaining access, nursing staff given permission to use the [facility]. - Febrile Illness Differential Diagnoses: Bacteremia, Pneumonia, Sepsis - esrd on hd - Diagnoses Provider Diagnoses: Sepsis, End stage renal disease on dialysis - Provider Notifications Discussed Care Of Patient With: Pati Cunha Time Discussed With Above Provider: 10:00 Instructed by Provider To: Other - accepted admission Discharge - Sign-Out/Discharge Documenting (check all that apply): Patient Departure - admit - Discharge Plan Condition: Fair Disposition: ADMITTED TO [facility] Referrals: No Primary Care Phys,NOPCP [Primary Care Provider] - - Billing Disposition and Condition Condition: FAIR Disposition: Admitted to [facility] Consult Consult: [id number]: Dr. Akers. Discussed pt care, admission, PMHx.
[2018-04-04] MEDS ORDERED: Ondansetron INJ* 2 MG/ML VIAL IV ONE (09:34)
[2018-04-04] MEDS ORDERED: Morphine VIAL* 4 MG/ML VIAL (1 ml vial) IV ONE (09:34)
[2018-04-04] MEDS ORDERED: Morphine INJ* 2 MG/ML 1 ML SYRINGE (TWO MG - NEW SYRINGE VERSION) ONE (09:39)
--- NOTE | 2018-04-04 09:55 | RAD ---
INDICATION: Fever COMPARISON: April 03, 2018 TECHNIQUE: An AP portable view obtained at 0850 hours is submitted. FINDINGS: Bones/Soft Tissues: There are no acute bony findings. There is a dual-lumen right subclavian catheter Cardiomediastinal: The cardiomediastinal silhouette is normal. Lungs: There are no infiltrates. Pleura: There are no pleural effusions. Other: None IMPRESSION: NO ACTIVE DISEASE.
[2018-04-04 10:25] LABS: ABS Basophils 0 10^3/ul (0-0.2); ABS Eosinophils 0 10^3/ul (0-0.6); ABS Lymphocytes 0.1 10^3/ul (1.0-4.8); ABS Monocytes 0 10^3/ul (0-0.8); ABS Neutrophils 2.1 10^3/ul (1.5-7.7); ABS Nucleated RBC 0 10^3/ul; Eosinophil % 0.2 % (0-6); Hematocrit 41 % (35-47); Hemoglobin 13.6 g/dl (12.0-16.0); Lymphocyte % 5.5 % (25-47); Mean Corpuscular HGB Conc 33 g/dl (31-36); Mean Corpuscular Hemoglobin 31 pg (27-31); Mean Corpuscular Volume 92 fL (80-97); Mean Platelet Volume 8.9 um3 (7.4-10.4); Nucleated Red Blood Cells % 0.3; Platelet Count 195 10^3/ul (150-450); Red Blood Count 4.45 10^6/ul (4.00-5.40); Red Cell Distribution Width 16 % (10.5-15); White Blood Count 2.3 10^3/ul (3.5-10.8)
[2018-04-04 10:29] LABS: EGFR Non-African American 4.4 (>60)
[2018-04-04 10:33] LABS: INR 0.98 (0.77-1.02)
[2018-04-04] MEDS ORDERED: Vancomycin(*) 1,000 MG - ED ONCE IVPB ONE ×2 (10:45)
[2018-04-04] MEDS ORDERED: Ondansetron INJ* 2 MG/ML VIAL IV PRN (11:39)
[2018-04-04] MEDS ORDERED: Polyethylene Glycol 3350* 17 GM PACKET PO PRN (11:44)
[2018-04-04] MEDS ORDERED: Ketorolac INJ* 30 MG/ML 1 ML VIAL IV PUSH ONE (11:46)
[2018-04-04] MEDS ORDERED: Morphine INJ* 2 MG/ML 1 ML SYRINGE (TWO MG - NEW SYRINGE VERSION) IV PRN (12:00)
[2018-04-04] MEDS ORDERED: Zosyn per Pharmacy* NOTE FOLLOW UP SCH (12:00)
[2018-04-04] MEDS ORDERED: Ampicillin ADVAN(*) 1 GM in NS 0.9% 50 ML* 50 ML IVPB ONE ×2 (12:06→12:37)
[2018-04-04] MEDS ORDERED: cefTRIAXone(*) 1 GM in NS 0.9% 50 ML* 50 ML IVPB ONE (12:42)
[2018-04-04] MEDS ORDERED: diPHENhydraMINE IV* 50 MG/ML 1 ml VIAL (BENADRYL) SLOW PUSH ONE (12:55)
[2018-04-04] MEDS ORDERED: diPHENhydraMINE IV* 50 MG/ML 1 ml VIAL (BENADRYL) ONE (13:01)
[2018-04-04] MEDS: Labetalol TAB* 200 MG PO SCH ×2 (13:04→20:32)
[2018-04-04 14:39] LABS: Body Fluid Source Cerebral Spinal
--- NOTE | 2018-04-04 14:40 | CONSULT ---
Consult Consult: Anesthesiology Consult for Lumbar Puncture This 17 year old woman was admitted for sepsis, fever, and headache. Past history is remarkable for Post-Streptococcal Glomerulonephritis, and failed Renal Transplant. She currently also has hypertension and anxiety/depression. She had hemodialysis this morning and was given a heparin infusion, which was stopped at 07:20. Allergies: Ibuprophen Medications: Labetalol, Senipar, Effexor, Miralax, Zofran, Lisinopril. Exam: Alert, anxious Skin warm, dry Mallampati class 2 Spine - interspaces easily palpable Platelets = 195, PTT = 30.0 A/P: Agree that Diagnostic Lumbar Puncture is indicated to rule out Meningitis. Heparin has been stopped for over 6 hours. Platelets and PTT are WNL. Procedure , and expected risks and benefits were explained to the patient. She had the opportunity to ask questions. Patient understands and agrees. Procedure: Intravenous anxiolysis/sedation achieved with Versed 4 mg in divided doses (see procedural sedation sheet). Position = sitting Chloraprep applied to skin and allowed to dry. 1% lidocaine infiltration anesthesia. 25 G Pencan spinal needle introduced at L3-4 and clear fluid was obtained. CSF samples sent to lab as follows: Tube #1 - 1 ml Tube #2 - 1 ml Tube #3 - 4 ml Tube #4 - 1 ml The patient tolerated the procedure well. Band-Aid applied to L.P. site.
[2018-04-04] MEDS ORDERED: ZOSYN 3.375 GM Q12H per EXTENDED INFUSION IVPB SCH ×2 (15:00)
[2018-04-04] MEDS: Midazolam* 1 MG/ML 10 ML VIAL (10 MG) ONE ×2 (15:17→18:47)
[2018-04-04] MEDS ORDERED: Vancomycin per Pharmacy* NOTE FOLLOW UP SCH (16:00)
[2018-04-04] MEDS: Cinacalcet TAB* 30 MG PO SCH ×2 (16:25→20:31)
[2018-04-04] MEDS: diPHENhydraMINE IV* 50 MG/ML 1 ml VIAL (BENADRYL) SLOW PUSH PRN (17:35)
--- NOTE | 2018-04-04 18:08 | HP ---
CC: Dr. Juan Alberto Akres * ADMISSION HISTORY AND PHYSICAL: DATE OF ADMISSION: 04/04/18 PRIMARY CARE PROVIDER: Dr. Juan Alberto Akers as well as her hammerer helper. MY ATTENDING WHILE IN THE HOSPITAL: Pati Cunha DO * (DICTATED BY MAURIZIO PALMA) CHIEF COMPLAINT: Headache, high fever. HISTORY OF PRESENT ILLNESS: Ms. 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 The patient states the pain started behind her eyes and then moved to the back of her neck and base of her skull. The patient was evaluated in the emergency department on 04/03/18 and had no meningeal signs that time besides pain at the base of her skull. The patient was given vancomycin, ceftriaxone in the emergency department, had blood cultures drawn. She had no white blood cell count, no fever at this time, except for a temperature of 101 in triage, which was not reproduced on the other reading. The patient's blood pressure was within normal range. The patient had hyperkalemia with potassium 7.4 and was admitted to the ICU for close monitoring while being given insulin and glucose to lower her potassium. She was recently given Kayexalate, but had no bowel movement. The patient was remained stable and was discharged in the morning of 04/04/18 to go to outpatient dialysis. The patient went to outpatient dialysis at approximately 6 a.m., received 45 minutes of dialysis when she was found to have a fever of 103 and was having continued severe headaches with photophobia. The patient returned to the emergency department and was found to have temperatures of 102.4 , 103.7 and pulse rates in the 130s to 140s. The patient's blood pressure at this time is 183/138. The patient's blood pressure was not elevated when she was in the emergency department previously. The patient had normal oxygen saturation, mild tachypnea, and continued to have pain, not responsive to morphine and Tylenol. The patient's temperature remained elevated after approximately 1 g of Tylenol was given. The patient on examination had pain with tenderness to her neck, pain with movement of her neck, mildly positive Kernig's sign, negative Brudzinski's. No nuchal rigidity. However, there is a high concern for meningitis. The patient has no recent tick bites or other insect bites, which she knows of. No camping trips, hikes in the [place]. The patient had a friend with a cold, but no other known sick contacts. The patient has not gone swimming in a public pool or had other abnormal exposures. The patient has no recent changes in her diet. No recent changes in her medication. The patient is not on any medications that are known to cause aseptic meningitis. The patient has no new rashes. The patient has been having twitching over the past day, which has gotten better after her dialysis. The patient in the emergency department had a potassium level of 5.5, BUN of 69, and creatinine of 1.11, which are not significantly changed from her previous examinations. The patient has had mild shortness of breath with exertion, particularly this morning, but no chest pain. The patient has had a mild cough, but this was after she had been crying and felt that it was due to postnasal drainage related to this. The patient's APTT in the emergency department was 95.6. Due to concern for meningitis, need for urgent hemodialysis and sepsis, we were asked to admit the patient to the hospital. PAST MEDICAL HISTORY: ESRD due to poststreptococcal glomerulonephritis, status post renal transplant in 2014, which was failed; hypertension; depression; anxiety; history of hypertensive emergency with PRES and seizures. PAST SURGICAL HISTORY: Renal transplant, appendectomy, hemodialysis fistula placement, tunneled hemodialysis catheter. MEDICATIONS: 1. Labetalol 200 mg p.o. b.i.d. 2. MiraLAX 17 g p.o. daily. 3. Lisinopril 5 mg p.o. daily. 4. Cinacalcet 30 mg p.o. t.i.d. 5. Effexor 75 mg p.o. q.a.m. 6. Zofran 8 mg p.o. q.8 hours. The patient has not taken her labetalol either last night or this morning. ALLERGIES: IBUPROFEN. FAMILY HISTORY: Significant for hypertension and kidney disease. The patient has no history of malignancy. SOCIAL HISTORY: The patient does not smoke. The patient does not drink. The patient has minimal caffeine. The patient lives with her parents and would like her father, Ian Mims, to be her health care proxy. The patient is disabled due to her end-stage renal disease, not , and has no children. REVIEW OF SYSTEMS: A 14-point review of systems was reviewed and is negative, except as above in the HPI. PHYSICAL EXAMINATION GENERAL: The patient is a 17-year-old female, who appears her stated age and sitting comfortably in bed, in no acute distress. VITAL SIGNS: At the time of evaluation, temperature 102.1, pulse rate 131, respiratory rate 22, oxygen saturation 97% on room air, blood pressure 165/125. HEENT: Head normocephalic, atraumatic. Sclerae anicteric. No conjunctival injection. Nasal mucosa moist. Oral mucosa moist. No pharyngeal erythema, discharge, or exudate. NECK: Tenderness to palpation along the paraspinal muscles. No nuchal rigidity. Pain with ration of the neck. No carotid bruit. No JVD. RESPIRATORY: Clear to auscultation bilaterally. No wheezes, rales, or rhonchi. Good air exchange bilaterally. CARDIAC: Regular rate and rhythm. No clicks, murmurs, gallops, or rubs. Pulses are 2+ in the bilateral dorsalis pedis, posterior tibialis, and radial areas. No lower extremity edema noted. No calf tenderness noted bilateral. ABDOMEN: Soft, nontender, and nondistended. Bowel sounds present and normoactive in all 4 quadrants. No hepatosplenomegaly. No abdominal bruits auscultated. No hepatojugular reflux. GENITOURINARY: No suprapubic tenderness or CVA tenderness. NEUROLOGIC: Cranial nerves II through XII intact. No focal deficits. Alert and oriented x3. Negative Brudzinski sign. Positive Kernig sign with pain elicited in the neck on the right side with flexion of the left leg. Frequent myoclonus. PSYCHIATRIC: Very pleasant and cooperative. SKIN: The patient has a hemodialysis catheter in her right chest, which shows no signs of inflammation. The patient has a large healing scar on the back side of her left arm. The patient has no other rash on the skin. LABORATORY DATA: White blood cell count 2.3, hemoglobin 13.6, hematocrit 41, platelet 195, neutrophils percent 93.1. INR 0.98, APTT 95.6. Sodium 133, potassium 5.5, chloride 92, carbon dioxide 19, anion gap of 22, BUN 69, creatinine of 11.11, glucose 88, lactic acid 1.9, calcium 10.1. Bilirubin 0.5, AST 11, ALT 7, alkaline phosphatase 226. Troponin I 0.01. BNP 105. Protein 6.8, albumin 3.7, globulin 3.1. STUDIES: Chest x-ray read as no active disease. Echocardiogram shows sinus tachycardia and peaked T-wave present in V2 and V3, rate of 135, QTc 399. No ST segment abnormalities. Normal axis. No hypertrophy and enlargement. T- wave similar. Peaked T-waves improved from 04/03/18 EKG. ASSESSMENT AND PLAN: Ms. Swain is a 17-year-old female with past medical history significant for end-stage renal disease with failed renal transplant, not on immunosuppression, who has had 3 days of headaches, photophobia, and has now developed high fevers and apparent concerning for meningitis. The patient will be admitted to the hospital for antibiotics, lumbar puncture, hemodialysis , and supportive care. 1. Sepsis, high fevers, and possible meningitis. The patient has had 3 days of fevers with photophobia with no documented subjective fevers until this morning. The patient has had no risk factors including no known tick bite and no activities suspicious for obtaining viral meningitis. Arbovirus and other enteroviruses are most common cause of aseptic meningitis around this time of year. The patient has a clear sensorium and does not have any hemodynamic instability, making the case for bacterial meningitis less likely. The patient will have a lumbar puncture with anesthesia once her PTT is reversed from hemodialysis. The patient has been seen in consultation by Dr. Poncho Dorsey of Neurology who recommended giving ampicillin in addition to the ceftriaxone, vancomycin, and Zosyn, which she has already received, and acyclovir will be given pending the results of the lumbar puncture; however, she is not encephalopathic at this point making herpes encephalitis less likely. There is also concern that the patient's hemodialysis catheter may be infected and this will be removed after the patient's hemodialysis afternoon if no other source of infection is clearly found. The patient has blood cultures pending before she received antibiotics on 04/03/18. The patient also has repeat blood cultures from today. The patient's lactic acid is normal. The patient does not have hypotension. The patient is tachycardia. The patient has end-stage renal disease, on hemodialysis and is mildly hypertensive, the patient will not be given a fluid bolus at this time. The patient's labetalol will be reintroduced as she has not taken it since 2 days ago and this is possibly contributing to her tachycardia. The patient has been given appropriate antibiotics and will be monitor closely in the ICU for hemodynamic instability. The patient meets sepsis criteria with high fevers, tachycardia, also leukopenia; however, the patient does not meet severe sepsis due to her elevated MCPs and normal lactic acid with no signs of encephalopathy or end organ damage. 2. End-stage renal disease. The patient will have hemodialysis as soon as possible upon being admitted to intensive care unit. This has been coordinated with Dr. Akers. The patient will subsequently have her hemodialysis catheter removed if no other clear source of infection is found at that point. The patient will be continued on her Cinacalcet. The patient's potassium is currently 5.5 and has improvement in her peaked T waves. Due to eminent hemodialysis, the patient will not be given any other anti-hyperkalemic agent. The patient's myoclonus is possibly related to her persistent uremia, thought it may also due to central nervous system infection. 3. Hypertension. The patient is mildly hypertensive, which is improving. The patient will be continued on her home labetalol with additional medications being given as needed. Continue the patient's lisinopril. 4. Headache. The patient has severe headache, which has not improved with Tylenol and morphine. The patient will be given a one time dose of Toradol to help with her headache and can have morphine ongoing. The patient will be continued Tylenol up to 3 g a day. 5. Depression, anxiety. The patient will be continued on Effexor. 6. FEN. The patient will have a renal diet and the patient will have fluids as above. 7. DVT prophylaxis. The patient will have SCDs. The patient is at low risk. The patient's APTT is currently elevated due to heparin given during hemodialysis this morning. 8. Disposition: The patient is admitted inpatient to the intensive care unit. 9. Code status. The patient would like to be a full code. The patient would like her surrogate decision maker to be father, Ian Mims, as above. TIME SPENT: Approximately 100 minutes were spent on the admission of this patient, 45 of which was spent [id number] with the patient obtaining history and physical and discussing treatment plan. This plan has been discussed with my attending, Dr. Pati Cunha, and she is in agreement. MAURIZIO PALMA [id number]/[facility] [place] #: [id number] IRISH
--- NOTE | 2018-04-04 18:58 | CONS ---
CC: Dr. Akers NEUROLOGY CONSULTATION REPORT: DATE OF CONSULT: 04/04/18 REFERRING PROVIDER: MAURIZIO Perry. LOCATION: She is in the emergency room to be admitted to the intensive care unit. CHIEF COMPLAINT: Headache, fever. INTERVAL HISTORY: Thi Swain is a 17-year-old young woman who has end- stage renal disease, on dialysis, from glomerulonephritis as a child. She started to get some headaches about 3 or 4 days ago. She was admitted late last night with a presumptive hypertensive headache, which apparently she has had in the past. According to Dr. Ziegler's admission note, she had some blood cultures drawn before vancomycin and ceftriaxone were administered for possible meningitis. Her temperature apparently in triage was 101, but then subsequently she did not have a fever and she had a normal white blood cell count. Her blood pressure was 170/121 in the emergency room last night. She was given Kayexalate and insulin and glucose and was discharged this morning for dialysis. In dialysis, she was exhibiting shaking and had fevers as high as 103 by verbal report. She was brought to the emergency room. She said that she was doing a lot of crying and snuffling yesterday because of the bad headache, but other than that has not had any colds or coughs. She states the headache has been going on for perhaps a few days, possibly a day or 2 more than that. Normally she does not get headaches. She denies back pain, but does admit to neck pain. She does not have any abdominal pain. She has not noticed any skin rashes. She does not have a sore throat. She is not aware of any bug bites and has not had any animal bites. PAST MEDICAL HISTORY: Notable for renal failure from glomerulonephritis, renal transplant, which failed, hemodialysis via fistula; depression; posterior reversible encephalopathy syndrome with seizures. MEDICATIONS: At home consist of: 1. Trandate 200 mg p.o. b.i.d. 2. MiraLAX 17 g p.o. p.r.n. 3. Sensipar 30 mg p.o. t.i.d. 4. Prinivil 5 mg p.o. daily. 5. Zofran 8 mg p.o. q.8 hours as needed for nausea. 6. Venlafaxine extended release 75 mg p.o. q.a.m. ALLERGIES: She is not supposed to take nonsteroidal anti-inflammatory drugs because of her renal failure, but she does not have any drug allergies. SOCIAL HISTORY: She does not smoke or do drugs. According to computer record, she is on disability and lives with her parents. REVIEW OF SYSTEMS: Other than the history of present illness and past medical history are otherwise unremarkable. PHYSICAL EXAMINATION: Most recent temperature is 102.1 by temporal scan, heart rate running in the 130s, respiratory 22 and oxygen saturation 97% on room air. Most recent blood pressure in the emergency room at 11:30 was 165/125. Heart is in a regular rhythm. Neck is supple and there is no Kernig or Brudzinski sign. She does have posterior neck pain, which does not change by flexion. Oral mucosa looks normal and I do not see erythema. The room is dark, but there are no obvious rashes. Straight leg raising does not produce any pain. Neurological Exam: Pupils react equally from about 4 down to about 2.5 mm to a blue light. She is photophobic, so I did not use a bright light. Eye movements are full with some discomfort behind the eyes with eye movements. There is no ptosis. Funduscopic exam with a blue light reveals a sharp disc on the right and poorly seen disc on the left. Facial musculature symmetric. Speech is soft and clear. Tongue protrudes in the midline and palate rises symmetrically. Motor exam reveals normal tone in the limbs. She has antigravity strength in all limbs without drift. She has multifocal myoclonus diffusely. There is no asterixis. She is alert and oriented and excellent detailed historian. Memory is intact and language is fluent. She has normal attention, concentration, and adequate fund of knowledge. DIAGNOSTIC STUDIES/LAB DATA: Notable also for white blood cell count of 2.3, which is not usual for her, there is a left shift with 91.7% granulocytes. Hemoglobin and hematocrit are normal and platelet counts are 195,000. Absolute lymphocyte count is only 0.1. Her INR at 10:00 this morning was 0.98, PTT elevated 95.6, which is post dialysis. Chemistry profile this morning post dialysis BUN 69, creatinine 11.1. Her sodium is 133, potassium 5.5, which was 7.2 early this morning before dialysis. Glucose is 165 early this morning. Her lactic acid yesterday morning was 1.9. IMPRESSION: Impression is that of probable meningitis, posterior reversible encephalopathy syndrome is possible, but it should not produce a fever. Her sensorium remains clear and so, it may be aseptic meningitis, but she should be covered for bacterial meningitis for immunosuppressed individuals. Lumbar puncture is pending return of PTT to normal. I spoke with Nabil Henao and emphasized the importance of getting a lumbar puncture done to guide treatment. She should be treated with the ceftriaxone, vancomycin, and ampicillin pending spinal fluid results or other definitive microbiological data. Infectious disease should be consulted if available. Her blood pressure should be treated as well to systolics less than 200 and diastolic less than 110. I will follow along with you. [id number]/[facility] #: [id number] IRISH
[2018-04-04] MEDS ORDERED: Lidocaine 1% INJ* 10 MG/ML 30 ML SDV ONE (20:24)
[2018-04-04] MEDS: Acetaminophen TAB* 325 MG PO PRN (20:32)
[2018-04-04] MEDS ORDERED: Midazolam* 1 MG/ML 10 ML VIAL (10 MG) ONE (20:40)
[2018-04-04] MEDS: oxyCODONE TAB* 5 MG TAB PO PRN (21:15)
--- NOTE | 2018-04-04 21:23 | PN ---
Progress Note - Progress Note Date of Service: 04/04/18 Note: Asked by hospitalist service to remove HD catheter as a potential source of infection. Tip sent for C&S. Note dictated.
[2018-04-04] MEDS: ZOSYN 3.375 GM Q12H per EXTENDED INFUSION IVPB SCH ×2 (23:23)
--- NOTE | 2018-04-05 04:14 | OP ---
CC: Dr. Anjel Corrigan; Dr. Aekrs OPERATIVE REPORT: DATE OF OPERATION: 04/04/18 DATE OF : 89 SURGEON: Anjel Corrigan MD PRE-OP DIAGNOSIS: POST-OP DIAGNOSIS: OPERATIVE PROCEDURE: INDICATIONS: The patient is a 17-year-old female with renal failure, on hemodialysis, who has eviden ce of infection and the hospitalist service has asked me to remove and culture the hemodialysis kenna ter as a possible source of infection. I have also discussed this with the dialysis team and they st ate that the left arm fistula is functional, does not get quite the flow that the catheter would, but that they will be able to manage with that as it matures. DESCRIPTION OF PROCEDURE: Therefore, the patient was supine in the bed in the ICU. She was given int ravenous Versed for anxiolysis. She was continuously monitored. The right chest was prepped with ant iseptic, draped in a sterile fashion. Local infiltrative anesthesia of 1% plain lidocaine was admini stered. Elliptical incision was carried around the exit site and dissection carried back until the c uff had been dissected free and the catheter was removed in its entirety. The tip was sent in a ster ile container for culture. The incision was closed with interrupted 3-0 silk followed by a sterile d ressing. She tolerated the procedure well. There are no complications. No drains. Pathologic speci men is the tip for culture. [id number]/[facility] #: [id number]
[2018-04-05] MEDS: oxyCODONE TAB* 5 MG TAB PO PRN (08:19)
[2018-04-05] MEDS: Venlafaxine EXT RELEASE CAP* 75 MG PO SCH (08:19)
[2018-04-05] MEDS ORDERED: Lisinopril TAB* 5 MG PO SCH (09:00)
[2018-04-05 09:13] LABS: ABS Basophils 0 10^3/ul (0-0.2); ABS Eosinophils 0 10^3/ul (0-0.6); ABS Lymphocytes 0.5 10^3/ul (1.0-4.8); ABS Monocytes 0.5 10^3/ul (0-0.8); ABS Neutrophils 11.2 10^3/ul (1.5-7.7); ABS Nucleated RBC 0 10^3/ul; Eosinophil % 0.2 % (0-6); Hematocrit 34 % (35-47); Hemoglobin 11.1 g/dl (12.0-16.0); Lymphocyte % 4.3 % (25-47); Mean Corpuscular HGB Conc 33 g/dl (31-36); Mean Corpuscular Hemoglobin 30 pg (27-31); Mean Corpuscular Volume 93 fL (80-97); Mean Platelet Volume 9.1 um3 (7.4-10.4); Nucleated Red Blood Cells % 0.1; Platelet Count 155 10^3/ul (150-450); Red Blood Count 3.67 10^6/ul (4.00-5.40); Red Cell Distribution Width 16 % (10.5-15); White Blood Count 12.2 10^3/ul (3.5-10.8)
--- NOTE | 2018-04-05 09:23 | PN ---
Progress Note - Progress Note Date of Service: 04/05/18 Note: s/p removal HD cath No pain C&S pending Site w/o drainage OK to remove dressing OK to shower Sutures out 04/07-04/09 either here or at office Please call if we can be of further assistance
[2018-04-05] MEDS: Lisinopril TAB* 5 MG PO SCH (09:33)
[2018-04-05] MEDS: Labetalol TAB* 200 MG PO SCH ×2 (09:33→21:04)
[2018-04-05] MEDS: diPHENhydraMINE IV* 50 MG/ML 1 ml VIAL (BENADRYL) SLOW PUSH PRN ×3 (09:33→23:10)
[2018-04-05] MEDS: Cinacalcet TAB* 30 MG PO SCH ×3 (09:33→21:47)
[2018-04-05 09:35] LABS: EGFR Non-African American 7.5 (>60)
[2018-04-05] MEDS: ZOSYN 3.375 GM Q12H per EXTENDED INFUSION IVPB SCH ×4 (11:15→21:47)
--- NOTE | 2018-04-05 12:07 | PN ---
Subjective Date of Service: 04/05/18 Interval History: HOSPITALIST PROGRESS NOTE Patient seen and examined at bedside. Care reviewed and d/w Deborah Rivas RN. She feels a little better today. Headache is much improved, denies N/V, has an appetite. Family History: Unchanged from Admission Social History: Unchanged from Admission Past Medical History: Unchanged from Admission Objective Active Medications: Acetaminophen (Tylenol Tab*) 650 mg PO Q6H PRN PRN Reason: FEVER/PAIN Last Admin: 04/04/18 20:32 Dose: 650 mg Cinacalcet (Sensipar Tab*) 30 mg PO TID [facility] Last Admin: 04/05/18 09:33 Dose: 30 mg Diphenhydramine HCl (Benadryl Iv*) 25 mg SLOW PUSH Q6H PRN PRN Reason: ITCHING Last Admin: 04/05/18 09:33 Dose: 25 mg Piperacillin Sod/Tazobactam (Sod 3.375 gm/ Sodium Chloride) 100 mls @ 25 mls/ hr IVPB Q12H [facility] Last Admin: 04/05/18 11:15 Dose: 25 mls/hr Labetalol HCl (Trandate Tab*) 200 mg PO BID [facility] Last Admin: 04/05/18 09:33 Dose: Not Given Lisinopril (Prinivil Tab*) 5 mg PO DAILY [facility] Last Admin: 04/05/18 09:33 Dose: Not Given Morphine Sulfate (Morphine Inj ((Syringe))*) 4 mg IV Q4H PRN PRN Reason: PAIN Ondansetron HCl (Zofran Inj*) 4 mg IV Q6H PRN PRN Reason: NAUSEA Last Admin: 04/04/18 16:24 Dose: 4 mg Oxycodone HCl (Roxycodone Tab*) 5 mg PO Q6H PRN PRN Reason: PAIN Last Admin: 04/05/18 08:19 Dose: 5 mg Pharmacy Consult (Zosyn Per Pharmacy*) 1 note FOLLOW UP .ZOSYN PER PHARMACY [facility] Polyethylene Glycol/Electrolytes (Miralax*) 17 gm PO DAILY PRN PRN Reason: CONSTIPATION Sevelamer Carbonate (Renvela Tab*) 1,600 mg PO [facility] Venlafaxine HCl (Effexor Xr Cap*) 75 mg PO QAM [facility] Last Admin: 04/05/18 08:19 Dose: 75 mg Vital Signs - 8 hr 04/05/18 04/05/18 04/05/18 04:00 04:01 04:15 Temperature Pulse Rate 79 84 80 Respiratory 21 24 21 Rate Blood Pressure 80/53 88/51 73/36 (mmHg) O2 Sat by Pulse 97 98 99 Oximetry 04/05/18 04/05/18 04/05/18 04:16 04:17 04:35 Temperature Pulse Rate 79 78 78 Respiratory 17 17 21 Rate Blood Pressure 78/36 82/36 79/46 (mmHg) O2 Sat by Pulse 100 99 99 Oximetry 04/05/18 04/05/18 04/05/18 04:58 05:00 05:30 Temperature Pulse Rate 77 77 Respiratory 19 14 12 Rate Blood Pressure 80/38 84/39 (mmHg) O2 Sat by Pulse 99 98 Oximetry 04/05/18 04/05/18 04/05/18 05:59 06:01 06:30 Temperature Pulse Rate 75 79 Respiratory 14 16 14 Rate Blood Pressure 96/45 84/42 (mmHg) O2 Sat by Pulse 99 98 Oximetry 04/05/18 08:00 Temperature 98.1 F Pulse Rate Respiratory Rate Blood Pressure (mmHg) O2 Sat by Pulse Oximetry Oxygen Devices in Use Now: None Appearance: Pleasant young lady lying in bed in NAD. Eyes: No Scleral Icterus Ears/Nose/Mouth/Throat: Mucous Membranes Moist Neck: Trachea Midline Respiratory: Symmetrical Chest Expansion and Respiratory Effort, Clear to Auscultation Cardiovascular: NL Sounds; No Murmurs; No JVD, RRR Abdominal: NL Sounds; No Tenderness; No Distention, - - Multiple old surgical scars Extremities: No Edema, - - Left arm posterior surgical scar extending from elbow to sholder, well healed. 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 - Patient Problems (1) Sepsis Comment: - Presentation compatible with sepsis with fever, tachycardia, and leukopenia. - qSOFA is 2 (SBP and RR). - Source is unclear at this time - CSF negative for meningitis, possible HD catheter infection, but already removed. Will also check Lyme serology and UA. (2) Gram positive septicemia Comment: - One set of blood cultures growing Gram positive cocci, PCR negative for MRSA. - HD catheter removed and culture tip shows no growth on day 1. - Continue Zosyn. - ID consult requested. - BP on the softer side, but with MAP around 60 and no signs of poor perfusion - continue IVF and monitor. Labetalol and Lisinopril have holding parameters. (3) Leukopenia Comment: - Secondary to sepsis - improved. (4) Hyperkalemia Comment: - 5.4 today - will continue renal diet and plan is for HD tomorrow. (5) ESRD (end stage renal disease) on dialysis Comment: - Continue HD as scheduled. (6) Depression Comment: - Continue Effexor. (7) DVT prophylaxis Comment: - SCDs. Status and Disposition: Inpatient. Continue to monitor in ICU.
[2018-04-05] MEDS: Sevelamer TAB* 800 MG PO SCH ×2 (13:59→21:03)
[2018-04-05] MEDS: Acetaminophen TAB* 325 MG PO PRN ×2 (14:07→21:03)
[2018-04-06 07:27] LABS: ABS Basophils 0 10^3/ul (0-0.2); ABS Eosinophils 0.2 10^3/ul (0-0.6); ABS Lymphocytes 0.9 10^3/ul (1.0-4.8); ABS Monocytes 0.9 10^3/ul (0-0.8); ABS Neutrophils 5.8 10^3/ul (1.5-7.7); ABS Nucleated RBC 0 10^3/ul; Eosinophil % 2.7 % (0-6); Hematocrit 30 % (35-47); Lymphocyte % 11.7 % (25-47); Mean Corpuscular HGB Conc 34 g/dl (31-36); Mean Corpuscular Hemoglobin 31 pg (27-31); Mean Corpuscular Volume 92 fL (80-97); Mean Platelet Volume 9.5 um3 (7.4-10.4); Nucleated Red Blood Cells % 0; Platelet Count 129 10^3/ul (150-450); Red Cell Distribution Width 15 % (10.5-15); White Blood Count 7.8 10^3/ul (3.5-10.8)
[2018-04-06 07:44] LABS: EGFR Non-African American 5.6 (>60)
--- NOTE | 2018-04-06 07:56 | PN ---
Subjective Date of Service: 04/06/18 Interval History: HOSPITALIST PROGRESS NOTE Patient seen and examined at bedside. Care reviewed and d/w Princess Trinidad RN. She feels much better today. FLORES is much improved, appetite has returned, denies N/V. Family History: Unchanged from Admission Social History: Unchanged from Admission Past Medical History: Unchanged from Admission Objective Active Medications: Acetaminophen (Tylenol Tab*) 650 mg PO Q6H PRN PRN Reason: FEVER/PAIN Last Admin: 04/05/18 21:03 Dose: 650 mg Cinacalcet (Sensipar Tab*) 30 mg PO TID [facility] Last Admin: 04/05/18 21:47 Dose: 30 mg Diphenhydramine HCl (Benadryl Iv*) 25 mg SLOW PUSH Q6H PRN PRN Reason: ITCHING Last Admin: 04/05/18 23:10 Dose: 25 mg Heparin Sodium (Porcine) (Heparin Flush Picc/Ml/Cvc(*)) 1 - 3 ml FLUSH 0600, 1800 [facility]; Protocol Last Admin: 04/06/18 06:35 Dose: 1 ml Piperacillin Sod/Tazobactam (Sod 3.375 gm/ Sodium Chloride) 100 mls @ 25 mls/ hr IVPB Q12H [facility] Last Admin: 04/05/18 21:47 Dose: 25 mls/hr Labetalol HCl (Trandate Tab*) 200 mg PO BID [facility] Last Admin: 04/05/18 21:04 Dose: 200 mg Lisinopril (Prinivil Tab*) 5 mg PO DAILY [facility] Last Admin: 04/05/18 09:33 Dose: Not Given Ondansetron HCl (Zofran Inj*) 4 mg IV Q6H PRN PRN Reason: NAUSEA Last Admin: 04/04/18 16:24 Dose: 4 mg Oxycodone HCl (Roxycodone Tab*) 5 mg PO Q6H PRN PRN Reason: PAIN Last Admin: 04/05/18 08:19 Dose: 5 mg Pharmacy Consult (Zosyn Per Pharmacy*) 1 note FOLLOW UP .ZOSYN PER PHARMACY [facility] Polyethylene Glycol/Electrolytes (Miralax*) 17 gm PO BID [facility] Sevelamer Carbonate (Renvela Tab*) 1,600 mg PO PC [facility] Last Admin: 04/05/18 21:03 Dose: 1,600 mg Venlafaxine HCl (Effexor Xr Cap*) 75 mg PO QAM [facility] Last Admin: 04/05/18 08:19 Dose: 75 mg Vital Signs - 8 hr 04/06/18 04/06/18 04/06/18 00:00 01:00 02:00 Temperature Pulse Rate 79 77 73 Respiratory 20 15 13 Rate Blood Pressure (mmHg) O2 Sat by Pulse 100 97 98 Oximetry 04/06/18 04/06/18 04/06/18 02:05 02:30 03:00 Temperature Pulse Rate 74 74 71 Respiratory 17 13 16 Rate Blood Pressure 97/56 104/63 105/58 (mmHg) O2 Sat by Pulse 99 99 100 Oximetry 04/06/18 04/06/18 04/06/18 03:19 04:00 05:00 Temperature 97.5 F Pulse Rate 70 75 Respiratory 19 13 Rate Blood Pressure 105/67 110/69 (mmHg) O2 Sat by Pulse 100 100 Oximetry 04/06/18 06:00 Temperature Pulse Rate 71 Respiratory 24 Rate Blood Pressure 106/75 (mmHg) O2 Sat by Pulse 100 Oximetry Oxygen Devices in Use Now: None Appearance: Young lady lying in bed in NAD Eyes: No Scleral Icterus Ears/Nose/Mouth/Throat: Mucous Membranes Moist Neck: Trachea Midline Respiratory: Symmetrical Chest Expansion and Respiratory Effort, Clear to Auscultation Cardiovascular: NL Sounds; No Murmurs; No JVD, RRR Abdominal: NL Sounds; No Tenderness; No Distention Extremities: - - Left arm AV fistula +thrill Skin: No Rash or Ulcers Neurological: Alert and Oriented x 3, NL Muscle Strength and Tone Result Diagrams: 04/06/18 07:00 04/06/18 07:00 Assess/Plan/Problems-Billing Assessment: Ms Swain is a 17yo F with PMH of 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 - Patient Problems (1) Sepsis Comment: - Presentation compatible with sepsis with fever, tachycardia, and leukopenia. - qSOFA was 2 (SBP and RR). - Source is unclear at this time - CSF negative for meningitis, possible HD catheter infection, but already removed. Lyme serology pending. Patient does not make urine. (2) Gram positive septicemia Comment: - One set of blood cultures growing Gram positive cocci, PCR negative for MRSA. - HD catheter removed and culture tip shows no growth on day 2. - Continue Zosyn. - ID consult requested. - BP trending up again - will d/c IVF and continue Labetalol and Lisinopril. (3) Leukopenia Comment: - Secondary to sepsis - improved. (4) Hyperkalemia Comment: - 5.1 today - will continue renal diet and plan is for HD today. (5) ESRD (end stage renal disease) on dialysis Comment: - Continue HD as scheduled. (6) Depression Comment: - Continue Effexor. (7) DVT prophylaxis Comment: - SCDs. (8) Full code status Status and Disposition: Inpatient. Continue to monitor in ICU.
[2018-04-06] MEDS: Cinacalcet TAB* 30 MG PO SCH ×3 (08:52→21:30)
[2018-04-06] MEDS: Sevelamer TAB* 800 MG PO SCH ×3 (08:52→18:49)
[2018-04-06] MEDS: Lisinopril TAB* 5 MG PO SCH ×2 (08:53→16:39)
[2018-04-06] MEDS: Polyethylene Glycol 3350* 17 GM PACKET PO SCH ×2 (08:53→20:33)
[2018-04-06] MEDS: Venlafaxine EXT RELEASE CAP* 75 MG PO SCH ×2 (08:53→21:29)
[2018-04-06] MEDS: Labetalol TAB* 200 MG PO SCH ×3 (08:53→21:29)
[2018-04-06] MEDS ORDERED: Lidocaine 2.5%/Prilocain 2.5%* 5 GM TUBE TOPICAL SCH (09:00)
[2018-04-06] MEDS: oxyCODONE TAB* 5 MG TAB PO PRN ×2 (10:55→18:54)
[2018-04-06] MEDS ORDERED: NS 0.9% 100 ML* 100 ML IVPB PRN (13:08)
[2018-04-06] MEDS ORDERED: Heparin DIALYSIS ONLY(*) 1,000 UNITS/ML VIAL DIALYSIS ONE (14:00)
[2018-04-06] MEDS: Acetaminophen TAB* 325 MG PO PRN (15:38)
[2018-04-06] MEDS: ZOSYN 3.375 GM Q12H per EXTENDED INFUSION IVPB SCH ×4 (15:40→23:16)
[2018-04-06] MEDS: diPHENhydraMINE IV* 50 MG/ML 1 ml VIAL (BENADRYL) SLOW PUSH PRN ×2 (16:07→23:13)
[2018-04-06] MEDS ORDERED: Labetalol TAB* 200 MG PO ONE (19:21)
[2018-04-07 05:56] LABS: ABS Basophils 0 10^3/ul (0-0.2); ABS Eosinophils 0.2 10^3/ul (0-0.6); ABS Lymphocytes 0.9 10^3/ul (1.0-4.8); ABS Monocytes 0.5 10^3/ul (0-0.8); ABS Neutrophils 3.5 10^3/ul (1.5-7.7); ABS Nucleated RBC 0 10^3/ul; Eosinophil % 3.4 % (0-6); Hematocrit 32 % (35-47); Hemoglobin 10.3 g/dl (12.0-16.0); Lymphocyte % 17.1 % (25-47); Mean Corpuscular HGB Conc 32 g/dl (31-36); Mean Corpuscular Hemoglobin 30 pg (27-31); Mean Corpuscular Volume 94 fL (80-97); Mean Platelet Volume 9.2 um3 (7.4-10.4); Nucleated Red Blood Cells % 0; Platelet Count 173 10^3/ul (150-450); Red Blood Count 3.38 10^6/ul (4.00-5.40); Red Cell Distribution Width 16 % (10.5-15); White Blood Count 5.1 10^3/ul (3.5-10.8)
[2018-04-07 06:01] LABS: EGFR Non-African American 7.4 (>60)
[2018-04-07] MEDS: Acetaminophen TAB* 325 MG PO PRN (07:47)
--- NOTE | 2018-04-07 08:29 | PN ---
Subjective Date of Service: 04/07/18 Interval History: No overnight events but her headache is back this morning. She thinks it's from the bed. She has been afebrile x 24 hours. No pain, no cough, no nausea, no diarrhea, no shortness of breath. Feels back to baseline and wants to go home. Family History: Unchanged from Admission Social History: Unchanged from Admission Past Medical History: Unchanged from Admission Objective Active Medications: Acetaminophen (Tylenol Tab*) 650 mg PO Q6H PRN PRN Reason: FEVER/PAIN Last Admin: 04/07/18 07:47 Dose: 650 mg Cinacalcet (Sensipar Tab*) 30 mg PO TID [facility] Last Admin: 04/06/18 21:30 Dose: 30 mg Diphenhydramine HCl (Benadryl Iv*) 25 mg SLOW PUSH Q6H PRN PRN Reason: ITCHING Last Admin: 04/06/18 23:13 Dose: 25 mg Heparin Sodium (Porcine) (Heparin Flush Picc/Ml/Cvc(*)) 1 - 3 ml FLUSH 0600, 1800 [facility]; Protocol Last Admin: 04/07/18 05:24 Dose: 2 ml Piperacillin Sod/Tazobactam (Sod 3.375 gm/ Sodium Chloride) 100 mls @ 25 mls/ hr IVPB Q12H [facility] Last Admin: 04/06/18 23:16 Dose: 25 mls/hr Sodium Chloride (Ns 0.9% 100 Ml*) 100 mls @ 0 mls/hr IVPB .PER RATE PRN PRN Reason: SBP < 90 OR CRAMPING Labetalol HCl (Trandate Tab*) 200 mg PO BID [facility] Last Admin: 04/06/18 21:29 Dose: 200 mg Lidocaine/Prilocaine (Emla 5 Gm*) 1 applic TOPICAL .SEE DIRECTIONS [facility] Last Admin: 04/06/18 08:46 Dose: 1 applic Lisinopril (Prinivil Tab*) 5 mg PO DAILY [facility] Last Admin: 04/06/18 16:39 Dose: 5 mg Ondansetron HCl (Zofran Inj*) 4 mg IV Q6H PRN PRN Reason: NAUSEA Last Admin: 04/04/18 16:24 Dose: 4 mg Oxycodone HCl (Roxycodone Tab*) 5 mg PO Q6H PRN PRN Reason: PAIN Last Admin: 04/06/18 18:54 Dose: 5 mg Pharmacy Consult (Zosyn Per Pharmacy*) 1 note FOLLOW UP .ZOSYN PER PHARMACY [facility] Polyethylene Glycol/Electrolytes (Miralax*) 17 gm PO BID [facility] Last Admin: 04/06/18 20:33 Dose: Not Given Sevelamer Carbonate (Renvela Tab*) 1,600 mg PO PC [facility] Last Admin: 04/06/18 18:49 Dose: 1,600 mg Venlafaxine HCl (Effexor Xr Cap*) 75 mg PO QAM [facility] Last Admin: 04/06/18 21:29 Dose: 75 mg Vital Signs - 8 hr 04/07/18 03:11 Temperature 98.6 F Pulse Rate 76 Respiratory 20 Rate Blood Pressure 124/68 (mmHg) O2 Sat by Pulse 98 Oximetry Oxygen Devices in Use Now: None Appearance: alert, well appearing sitting up in bed eating breakfast Eyes: No Scleral Icterus Ears/Nose/Mouth/Throat: NL Teeth, Lips, Gums Neck: NL Appearance and Movements; NL JVP Respiratory: Symmetrical Chest Expansion and Respiratory Effort, Clear to Auscultation Cardiovascular: NL Sounds; No Murmurs; No JVD, RRR, No Edema Abdominal: NL Sounds; No Tenderness; No Distention, No Hepatosplenomegaly Lymphatic: No Cervical Adenopathy Extremities: No Edema Skin: No Rash or Ulcers, - - right chest wall with 3 stitches. left upper extremity fistula. Neurological: Alert and Oriented x 3 Result Diagrams: 04/07/18 05:30 04/07/18 05:30 Microbiology and Other Data: Microbiology 04/04/18 20:50 Catheter Tip Culture - Preliminary Catheter Tip NO GROWTH DAY 1 Cath tip cultures with >15 CFU are considered clinically significant. It is recommended procedure that peripheral blood cultures be collected in parallel with cath tip submission. Clinical Microbiology Procedures Handbook, Second Edition, [place], 2004. 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 - Patient Problems (1) Bacteremia due to Staphylococcus Current Visit: Yes Status: Acute Code(s): R78.81 - BACTEREMIA SNOMED Code( s): 837826805883 Comment: 04/04 blood cultures + for staph hominis subsequent 04/04 blood cultures negative no cultures drawon 04/05 or 04/06 but has been afebrile no murmur or cutaneous manifestations appreciate Dr. Peterson recommendations; she already has a picc Zosyn day 4; would prefer oxacillin or nafcillin but may be limited by frequency (2) Depression Current Visit: Yes Status: Acute Code(s): F32.9 - MAJOR DEPRESSIVE DISORDER , SINGLE EPISODE, UNSPECIFIED SNOMED Code(s): 81566986 Comment: - Continue Effexor. (3) ESRD (end stage renal disease) on dialysis Current Visit: Yes Status: Acute Code(s): N18.6 - END STAGE RENAL DISEASE; Z99.2 - DEPENDENCE ON RENAL DIALYSIS SNOMED Code(s): 026437683 Comment: MWF HD via fistula lytes and volume okay (4) Sepsis Current Visit: Yes Status: Acute Comment: present on admission, now resolved , due to bacteremia Status and Disposition: Inpatient. Continue to monitor in ICU.
[2018-04-07] MEDS: Labetalol TAB* 200 MG PO SCH (08:30)
[2018-04-07] MEDS: Cinacalcet TAB* 30 MG PO SCH ×2 (08:30→13:33)
[2018-04-07] MEDS: Lisinopril TAB* 5 MG PO SCH (08:30)
[2018-04-07] MEDS: Sevelamer TAB* 800 MG PO SCH ×3 (08:30→17:29)
[2018-04-07] MEDS: Venlafaxine EXT RELEASE CAP* 75 MG PO SCH (08:30)
[2018-04-07] MEDS: Polyethylene Glycol 3350* 17 GM PACKET PO SCH (08:32)
[2018-04-07] MEDS: diPHENhydraMINE IV* 50 MG/ML 1 ml VIAL (BENADRYL) SLOW PUSH PRN ×2 (10:52→17:15)
[2018-04-07] MEDS: ZOSYN 3.375 GM Q12H per EXTENDED INFUSION IVPB SCH ×2 (10:53)
[2018-04-07 15:53] VITALS: BP 154/117
[2018-04-07] MEDS ORDERED: Vancomycin(*) 1,000 MG in NS 0.9% 250 ML* 250 ML IVPB ONE (16:00)
[2018-04-07] MEDS ORDERED: diPHENhydraMINE IV* 25 MG in NS 0.9% 50 ML* 50 ML IVPB ONE (16:43)
[2018-04-07] MEDS ORDERED: diPHENhydraMINE IV* 50 MG/ML 1 ml VIAL (BENADRYL) IVPB ONE (16:50)
--- NOTE | 2018-04-07 20:31 | CONS ---
CONSULTATION REPORT: DATE OF CONSULT: 04/07/18 REQUESTING PHYSICIAN: Dr. Howard. CONSULTING SERVICE: Infectious Disease. REASON FOR CONSULT: Sepsis. IMPRESSION: 1. Sepsis. Present on admission, now resolved. She had had fever, headache, neck stiffness, in the setting of dialysis catheter, which was removed and shortly thereafter, she defervesced. Two of four blood culture bottles grew Staph hominis, little unusual that 2 of the bottles were negative, but still possible. She had no other source identified including a lumbar puncture that showed no pleocytosis. A chest x-ray showed no infiltrate or effusion and she feels back to her usual self now. She had a dose of vancomycin initially. She had dialysis on Friday and has been on Zosyn since. 2. End-stage renal disease, on hemodialysis, previously by right chest tunneled catheter, now by left upper extremity fistula. 3. Poststreptococcal glomerulonephritis. 4. History of renal transplant, 2016, which failed. RECOMMENDATIONS: Stop Zosyn. Vancomycin for 10 more days, preferably post hemodialysis. She could have a gram of vancomycin today and a level for dialysis, for Dr. Akers to re-dose. We will recheck the blood cultures to be sure that are cleared. Given that she had only a 2 of 4 bottles present and no peripheral stigmata of infective endocarditis, no new murmur, I think infective endocarditis is unlikely. HISTORY OF PRESENT ILLNESS: This is a 17-year-old woman with end-stage renal disease, on hemodialysis, admitted on 04/04/18 with fever, headache, nuchal rigidity, and malaise. She had temperature of 40 degrees Celsius. She had blood cultures taken on 04/04/18, 2 of 4 came back Staph hominis. She had her dialysis cath removed the evening of the 04/04/18 after having been started on vancomycin and Zosyn. She had significant improvement in her symptoms and no fever since the 04/04/18. She feels pretty well back to her usual self. No joint pain or stiffness. No rash. No cough or trouble breathing. No sinus symptoms. PAST MEDICAL HISTORY: 1. End-stage renal disease, on hemodialysis, due to poststreptococcal glomerulonephritis. 2. History of PRES. 3. Status post renal transplant with rejection. 4. Depression. 5. Anxiety. 6. Left upper extremity fistula. MEDICATIONS: 1. Tylenol. 2. Cinacalcet. 3. Heparin Flush via PICC. 4. Labetalol. 5. Lisinopril. 6. Oxycodone. 7. Zosyn 3.375 g every 12 hours. 8. Sevelamer. 9. Effexor. ALLERGIES: IBUPROFEN. FAMILY HISTORY: No recurrent infections. SOCIAL HISTORY: She lives in [place] with a roommate. She has no travel, no sick contacts. No injections drugs. REVIEW OF SYSTEMS: All negative except as noted above in the history of present illness. PHYSICAL EXAM: Vital Signs: Temperature is 37, heart rate 80, respiratory rate 16, blood pressure 160/120, oxygen saturation 100% on room air. In general , she is awake, not in distress. Neurologic: She is oriented x3. Follows all commands. Moves all of her extremities. HEENT: There is no thrush. Neck is supple without mass. Lymph Nodes: There is no cervical, supraclavicular, inguinal, axillary, epitrochlear lymphadenopathy. Heart is regular rate and rhythm without murmurs, rubs, or gallops. Right chest catheter site has bandage. There is no crepitus or fluctuance. Lungs are clear to auscultation bilaterally. Abdomen is soft, nontender, nondistended. There are bowel sounds present. Skin: There is no rash or splinter hemorrhage. LABORATORY DATA: White blood cell count 5, hemoglobin 10, platelets 173. Creatinine is 7, potassium 4.7, CRP 131, down from 217. Please see impressions and recommendations as outlined above, which I have discussed with Dr. Mendes. Thanks for asking me to see Ms. Swain in consultation. [id number]/[facility] #: [id number] [facility]ITALMuk[facility]
[2018-04-07 20:58] LABS: B. miyamotoi PCR, B Negative (Negative)
--- NOTE | 2018-04-08 05:30 | DS ---
CC: Louann Plascenica DO; Juan Alberto Akers MD * DISCHARGE SUMMARY: DATE OF ADMISSION: 04/04/18 DATE OF DISCHARGE: 04/07/18 PRINCIPAL DISCHARGE DIAGNOSIS: Catheter related blood stream infection. SECONDARY DISCHARGE DIAGNOSES: 1. End-stage renal disease. 2. History of hypertensive emergency and posterior reversible encephalopathy syndrome. 3. History of seizure. 4. Depression and anxiety. Please see my physical exam for the physical exam and vital signs at the time of discharge. HOSPITAL COURSE BY PROBLEM: 1. Catheter related blood stream infection. Ms. Swain presented to the emergency department with headache and fevers. An LP was unremarkable but blood cultures returned with Staph hominis from 04/04/18. The PermCath was removed from her chest and she defervesced. The catheter tip has no growth at the time of discharge and subsequent blood cultures are negative. I consulted with Dr. Houston who evaluated her on 04/07/18 and he recommends continuing vancomycin with dialysis. I have discussed the case with Dr. Akers and he agrees with this plan. He will continue the vancomycin dosing after dialysis on her usual days of Friday, Friday and Friday. 2. End-stage renal disease. As above, the PermCath was removed due to a catheter related blood stream infection. She does have a fistula in the left upper extremity that was placed last fall and is now found to be mature. She received dialysis via the left upper extremity fistula during this admission successfully and without event. 3. Anxiety and depression. She was continued on Effexor during this admission. DISPOSITION: Ms. Swain is discharged to home on 04/07/18 and is instructed to return to the emergency department should she develop fevers, headache, chest pain, shortness of breath, nausea, vomiting or diarrhea. She is to report to dialysis on Friday for her regularly scheduled session which will include vancomycin. Thirty minutes were spent on this discharge. [id number]/[facility] #: [id number] [place]
== END 2018-04-07 19:44 | disposition home or self-care (01) | DRG 466 ==
LOC: ED 08:24 → ICU 12:09 → MEDTELE 04-06 07:55
PROVIDERS: ADMIT Hospitalist; ATTEND Internal Medicine
PROC: 5A1D70Z Performance of Urinary Filtration, Intermittent, Less than 6 Hours Per Day (ICD-10-PCS; principal; 2018-04-04)
PROC: 05PYX3Z Removal of Infusion Device from Upper Vein, External Approach (ICD-10-PCS; 2018-04-04)
PROC: 009U3ZX Drainage of Spinal Canal, Percutaneous Approach, Diagnostic (ICD-10-PCS; 2018-04-04)
PROC: 02HV33Z Insertion of Infusion Device into Superior Vena Cava, Percutaneous Approach (ICD-10-PCS; 2018-04-05)
PROC: 5A1D70Z Performance of Urinary Filtration, Intermittent, Less than 6 Hours Per Day (ICD-10-PCS; 2018-04-06)
DX: T82.7XXA Infection and inflammatory reaction due to other cardiac and vascular devices, implants and grafts, initial encounter (principal); A41.1 Sepsis due to other specified staphylococcus; N18.6 End stage renal disease; T86.12 Kidney transplant failure; I12.0 Hypertensive chronic kidney disease with stage 5 chronic kidney disease or end stage renal disease; E87.5 Hyperkalemia; F32.9 Major depressive disorder, single episode, unspecified; F41.9 Anxiety disorder, unspecified; Z99.2 Dependence on renal dialysis; Z79.899 Other long term (current) drug therapy; Z88.6 Allergy status to analgesic agent; Z82.49 Family history of ischemic heart disease and other diseases of the circulatory system; Z84.1 Family history of disorders of kidney and ureter; X58.XXXA Exposure to other specified factors, initial encounter; Y92.9 Unspecified place or not applicable
CPT/HCPCS: 36415; 71045; 80048; 80053; 80202; 82945; 83605; 83735; 83880; 84145; 84157; 84484; 85025; 85610; 85730; 86140; 86618; 86666; 86753; 87040; 87070; 87071; 87077; 87150; 87205; 87529; 87798; 87899; 89051; 90935; 93005; 99285; A9270-GY; C1751; G0257; J0696; J1200; J1644; J1885; J2250; J2270; J2405; J2543; J3370

== ENCOUNTER 2018-05-24 19:07 | Observation (INO) | payer MEDICAID, MEDICARE ==
[2018-05-24] MEDS ORDERED: Labetalol IV* 5 MG/ML 20 ML VIAL IV PUSH ONE (19:52)
--- NOTE | 2018-05-24 19:54 | ED ---
Headache - HPI Summary HPI Summary: This patient is a 17 year old F presenting to ED with a chief complaint of frontal FLORES that goes into her neck since 1300 this afternoon. Prior treatment includes extra strength tylenol at 1730 and ondansetron at 1700 today. The patient rates the pain 6/10 in severity. Symptoms aggravated by nothing. Symptoms alleviated by nothing. Patient reports N/V, weakness, phonophobia, and neck pain. Patient denies sore throat, cough, congestion, and photophobia. PMHx of HTN (She has not taken Lisinopril or amlodipine yet tonight). She is also on dialysis (Friday, , and Friday). FLORES has accompanied high potassium levels or high blood pressure before. - History Of Current Complaint Chief Complaint: EDHeadache Stated Complaint: HEADACHE, WEAKNESS, NAUSEA Time Seen by Provider: 05/24/18 19:35 Hx Obtained From: Patient Onset/Duration: Sudden Onset, Started hours ago - since 1300 today, Still Present Initially Headache Was: Initial Pain Scale(0-10)= - 6 Currently Pain Is: Current Pain Scale(0-10)= - 6 Timing: Constant, Hours Location of Headache: Frontal - and radiates into her neck Aggravating Factor: Nothing Allevating Factors: Nothing Associated Signs And Symptoms: Other (Noted In Comments) - Patient reports N/V, weakness, phonophobia, and neck pain. Patient denies sore throat, cough, congestion, and photophobia. - Allergies/Home Medications Allergies/Adverse Reactions: Allergies Allergy/AdvReac Type Severity Reaction Status Date / Time ibuprofen Allergy GI Upset Verified 04/04/18 08:45 PMH/Surg Hx/FS Hx/Imm Hx Endocrine/Hematology History: Reports: Hx Blood Transfusions, Hx Thyroid Disease - Hyperthyroid, Hx Anemia Cardiovascular History: Reports: Hx Hypertension Respiratory History: Denies: Hx Asthma History: Reports: Hx Chronic Renal Failure, Hx Dialysis, Hx Renal Disease, Other Problems/Disorders - UTI post kidney transplant, failed kidney transplant Sensory History: Denies: Hx Contacts or Glasses, Hx Legally Blind, Hx Deafness, Hx Hearing Aid , Hx Hearing Problem Opthamlomology History: Denies: Hx Contacts or Glasses, Hx Legally Blind Neurological History: Reports: Hx Headaches, Hx Seizures Psychiatric History: Reports: Hx Anxiety, Hx Depression Denies: Hx Eating Disorder, Hx of Violent Episodes Against Others - Surgical History Surgery Procedure, Year, and Place: s/p kidney transplant surgery 3 yrs ago, failed. appendectomy Hx Anesthesia Reactions: No - Immunization History Date of Tetanus Vaccine: Unk Date of Influenza Vaccine: Fall 2014 Infectious Disease History: No Infectious Disease History: Reports: Hx Clostridium Difficile Denies: Traveled Outside the [place] in Last 30 Days - Family History Known Family History: Positive: Hypertension, Other - schizophrenia Negative: Cardiac Disease, Diabetes - Social History Alcohol Use: None Hx Substance Use: No Substance Use Type: Reports: None Hx Tobacco Use: No Smoking Status (MU): Never Smoked Tobacco Review of Systems Negative: Photophobia Positive: Other - phonophobia; denies congestion. Negative: Sore Throat Negative: Cough Positive: Vomiting, Nausea Positive: Other - neck pain Positive: Headache - frontal FLORES that goes into her neck, Weakness All Other Systems Reviewed And Are Negative: Yes Physical Exam - Summary Physical Exam Summary: Appearance: The patient is well-nourished in no acute distress and in no acute pain. Skin: The skin is warm and dry and skin color reflects adequate perfusion. HEENT: The head is normocephalic and atraumatic. The pupils are equal and reactive. The conjunctivae are clear and without drainage. Nares are patent and without drainage. Mouth reveals moist mucous membranes and the throat is without erythema and exudate. The external ears are intact. The ear canals are patent and without drainage. The tympanic membranes are intact. Neck: The neck is supple with full range of motion and non-tender. There are no carotid bruits. There is no neck vein distension. Respiratory: Chest is non-tender. Lungs are clear to auscultation and breath sounds are symmetrical and equal. Cardiovascular: Heart is regular rate and rhythm. There is no murmur or rub auscultated. There is no peripheral edema and pulses are symmetrical and equal. Abdomen: The abdomen is soft and non-tender. There are normal bowel sounds heard in all four quadrants and there is no organomegaly palpated. Musculoskeletal: There is no back tenderness noted. Extremities are non-tender with full range of motion. There is good capillary refill. There is no peripheral edema or calf tenderness elicited. Neurological: Patient is alert and oriented to person, place and time. The patient has symmetrical motor strength in all four extremities. Cranial nerves are grossly intact. Deep tendon reflexes are symmetrical and equal in all four extremities. Psychiatric: The patient has an appropriate affect and does not exhibit any anxiety or depression. Triage Information Reviewed: Yes Vital Signs On Initial Exam: Initial Vitals Temp Pulse Resp BP Pulse Ox 97.1 F 80 16 169/121 99 05/24/18 19:11 05/24/18 19:11 05/24/18 19:11 05/24/18 19:11 05/24/18 19:11 Vital Signs Reviewed: Yes Diagnostics - Vital Signs Vital Signs Temp Pulse Resp BP Pulse Ox 05/24/18 19:11 97.1 F 80 16 169/121 99 - Laboratory Result Diagrams: 05/24/18 20:00 05/24/18 20:00 Lab Statement: Any lab studies that have been ordered have been reviewed, and results considered in the medical decision making process. - EKG 2003 Cardiac Rate: NL - 86 BPM EKG Rhythm: Sinus Rhythm ST Segment: Normal Ectopy: None EKG Interpretation: no STEMI Re-Evaluation - Re-Evaluation First Eval Re-Evaluation Time: 21:37 Comment: The patient feels better and her blood pressure is down a bit. Discussed lab results with the patient and plan for transfer. However, the patient does not want to be transferred. Second Eval Re-Evaluation Time: 22:00 Comment: The patient is hypoglycemic. Discussed plan for further care. Headache Course/Dx - Course Course Of Treatment: Ms. Swain presented to the emergency department complaining of a frontal headache and hypertension. She gets dialysis on Friday and Saturdays and did get it yesterday. She states that this is happened to her before when she cheats on her diet which she did yesterday. She was nontoxic in appearance and IV was initiated labs, were drawn and she was given labetalol IV for a significantly elevated diastolic. She began to feel better but requested some pain medication which she then stated caused her to be itching and asked for Benadryl. Her potassium was found to be 7 and she was given calcium gluconate, Kayexalate and the combination of insulin and glucose. She felt a bit nauseated was given Zofran. The insulin and glucose caused her blood sugar did drop and she began to exhibit altered mental status. Her fingerstick was 21 and she was given another amp of D50. This significantly improved her. I spoke with Dr. Akers who felt that we could wait 4 hours after the Kayexalate and if her potassium was 6 or below at that point she could wait to morning and get dialyzed here otherwise she would need to be transferred. - Diagnoses Provider Diagnoses: Hyperkalemia, Hypertension - Physician Notifications Discussed Care Of Patient With: Pati Cunha Time Discussed With Above Provider: 20:49 Instructed by Provider To: Other - Consulted Dr. Cunha about the patient's case. Consulted Dr. Akers at 2156 who recommended waiting 4 hours after getting the Kayexalate and repeat the potassium. If the potassium is 6 or below , then the patient can wait until morning and get dialysis. If it is above, then she will have to be transferred. - Critical Care Time Critical Care Time: 30-74 min Discharge - Sign-Out/Discharge Documenting (check all that apply): Sign-Out Patient - awaiting repeat potassium and re-eval Signing out patient TO: Sloan Dotson Receiving patient FROM: Sloan Thayer - Discharge Plan Condition: Stable Referrals: Louann Plascencia, DO [Primary Care Provider] - - Billing Disposition and Condition Condition: STABLE - Attestation Statements Document Initiated by Scribe: Yes Documenting Scribe: Ramirez Sung Provider For Whom Eboni is Documenting (Include Credential): Sloan Thayer MD Scribe Attestation: IRamirez, scribed for Sloan Thayer MD on 05/24/18 at 2221. Scribe Documentation Reviewed: Yes Provider Attestation: The documentation as recorded by the Ramirez cruz accurately reflects the service I personally performed and the decisions made by me, Sloan Thayer MD
[2018-05-24] MEDS ORDERED: Ondansetron INJ* 2 MG/ML VIAL IV ONE (20:20)
[2018-05-24 20:30] LABS: ABS Basophils 0 10^3/ul (0-0.2); ABS Eosinophils 0.1 10^3/ul (0-0.6); ABS Lymphocytes 1.1 10^3/ul (1.0-4.8); ABS Monocytes 0.5 10^3/ul (0-0.8); ABS Nucleated RBC 0 10^3/ul; Hematocrit 29 % (35-47); Hemoglobin 9.7 g/dl (12.0-16.0); Lymphocyte % 16.2 % (25-47); Mean Corpuscular HGB Conc 33 g/dl (31-36); Mean Corpuscular Hemoglobin 30 pg (27-31); Mean Corpuscular Volume 89 fL (80-97); Mean Platelet Volume 8.6 um3 (7.4-10.4); Nucleated Red Blood Cells % 0; Platelet Count 310 10^3/ul (150-450); Red Blood Count 3.27 10^6/ul (4.00-5.40); Red Cell Distribution Width 15 % (10.5-15); White Blood Count 6.8 10^3/ul (3.5-10.8)
[2018-05-24 20:35] LABS: INR 0.93 (0.77-1.02)
[2018-05-24 20:41] LABS: EGFR Non-African American 6.1 (>60)
[2018-05-24] MEDS ORDERED: Calcium Gluconate INJ* 1 GM in NS 0.9% 100 ML* 100 ML IVPB ONE (20:43)
[2018-05-24] MEDS ORDERED: Insulin REGULAR(*) 1 UNITS UNIT IV PUSH ONE (20:45)
[2018-05-24] MEDS ORDERED: Dextrose 50% Syringe 50 ML* 25 GM/50 ML SYRINGE IV PUSH ONE ×3 (20:46→22:47)
[2018-05-24] MEDS ORDERED: diPHENhydraMINE PO* 50 MG PO ONE (21:37)
[2018-05-24] MEDS ORDERED: Sodium Polystyrene ORAL.SOL* 15 GM/60 ML BTL PO ONE (21:40)
[2018-05-24] MEDS: oxyCODONE/Acetamin 5/325 MG* TAB PO ONE ×2 (21:40→22:39)
[2018-05-24] MEDS ORDERED: diPHENhydraMINE PO* 25 MG ONE (21:48)
[2018-05-24] MEDS: diPHENhydraMINE PO* 25 MG PO ONE ×2 (21:49→22:33)
[2018-05-24] MEDS ORDERED: Ondansetron INJ* 2 MG/ML VIAL ONE (21:53)
--- NOTE | 2018-05-24 22:00 | ED ---
Progress - Progress Note Progress Note: This patient was signed out from Dr. Thayer awaiting admission. The hospitalist would not accept the patient until her potassium dropped, it has just reached 6. We discussed the case with Dr. Cunha who has accepted the patient for admission Re-Evaluation - Re-Evaluation First Eval Re-Evaluation Time: 21:37 Comment: The patient feels better and her blood pressure is down. Discussed lab results with the patient and plan for transfer. However, the patient does not want to be transferred. Second Eval Re-Evaluation Time: 22:00 Comment: The patient is hypoglycemic. Discussed plan for further care. Course/Dx - Diagnoses Provider Diagnoses: Hyperkalemia, Hypertension - Provider Notifications Discussed Care Of Patient With: Pati Cunha Time Discussed With Above Provider: 20:49 Instructed by Provider To: Admit As Inpatient Discharge - Sign-Out/Discharge Documenting (check all that apply): Patient Departure, Receiving Sign-Out Receiving patient FROM: Sloan Thayer - Discharge Plan Condition: Fair Disposition: ADMITTED TO [facility] Referrals: Louann Plascencia, [Primary Care Provider] - - Attestation Statements Document Initiated by Scribe: Yes Documenting Scribe: Arturo Hummel Provider For Whom Scribe is Documenting (Include Credential): Sloan Dotson MD Scribe Attestation: Arturo Fernández , scribed for Sloan Dotson MD on 05/25/18 at 0322.
[2018-05-24] MEDS ORDERED: Dextrose 50% Syringe 50 ML* 25 GM/50 ML SYRINGE ONE ×2 (22:02→22:04)
[2018-05-24] MEDS ORDERED: Sodium Polystyrene ORAL.SOL* 15 GM/60 ML BTL ONE (22:36)
[2018-05-25 03:10] LABS: EGFR Non-African American 5.6 (>60)
[2018-05-25] MEDS ORDERED: Ondansetron INJ* 2 MG/ML VIAL IV PRN (04:24)
[2018-05-25] MEDS: HYDROmorphone INJ1* 1 MG/ML SYRINGE IV SLOW PU PRN ×2 (04:43→09:04)
[2018-05-25] MEDS ORDERED: HYDROcodone/ACETAMIN 5-325 MG* 1 TAB PO PRN (04:51)
[2018-05-25] MEDS ORDERED: Acetaminophen TAB* 325 MG PO PRN (04:51)
[2018-05-25] MEDS ORDERED: Lisinopril TAB* 5 MG ONE (05:38)
[2018-05-25] MEDS ORDERED: Labetalol TAB* 200 MG ONE (05:38)
[2018-05-25] MEDS: Labetalol TAB* 200 MG PO SCH ×2 (05:39→07:53)
[2018-05-25] MEDS: Lisinopril TAB* 5 MG PO SCH ×2 (05:39→07:53)
[2018-05-25 06:52] LABS: EGFR Non-African American 5.6 (>60)
[2018-05-25] MEDS ORDERED: diPHENhydraMINE PO* 25 MG PO PRN (06:57)
[2018-05-25] MEDS ORDERED: Labetalol IV* 5 MG/ML 20 ML VIAL IV PUSH ONE (07:58)
--- NOTE | 2018-05-25 08:03 | HP ---
CC: Dr. Akers * HISTORY AND PHYSICAL: DATE OF ADMISSION: 05/25/18 PRIMARY CARE PROVIDER: None. LOOM CLEANER: Dr. Akers. CHIEF COMPLAINT: Headache, nausea, vomiting, and weakness. HISTORY OF PRESENT ILLNESS: Ms. 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 The patient states at approximately 1 p.m. on the day prior to admission, she began to develop severe headache. She then developed nausea. She states this is typically how her headaches will develop. She states that she has required "heavy duty pain medications" to improve the headache. If she does not treat the headache, she notes that the headache will be low level and persistent for days. While in the emergency room, the patient was noted to have marked hyperkalemia with a potassium of 7. She states that she did have her dialysis treatment this past Friday. The concern was whether or not the patient needed to be transferred for emergent dialysis. After conversation with Dr. Akers, the decision was made to treat her hyperkalemia with medications and if her potassium came down to 6 or lower, to admit the patient for dialysis on Friday morning. The patient 's repeat potassium did improve to 6 and, therefore, she will be admitted under observation status for treatment of her headache and to get dialysis later this morning. Of note, the patient did not have her blood pressure medications in the emergency room last night. Also, when the patient received insulin for treatment of her hyperkalemia, her . This was treated with IV dextrose. She improved, but then again developed profuse sweating and at that point her glucose was noted to be only 47 and again she received dextrose in the snack. The patient has no signs of hypoglycemia at this time. PAST MEDICAL HISTORY: 1. 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 2. Hypertension with history of PRES with seizures. 3. Depression/anxiety. PAST SURGICAL HISTORY: 1. Left arm surgery due to fracture. 2. PEG tube insertion/removal. 3. Renal transplant. 4. Appendectomy. 5. Hemodialysis fistula. 6. Tunneled dialysis catheter insertions and removals. MEDICATIONS: 1. Amlodipine, dose is unknown. 2. Labetalol 200 mg p.o. b.i.d. 3. Lisinopril 5 mg p.o. daily. 4. Sensipar 30 mg p.o. t.i.d. 5. Renvela 1600 mg p.o. with meals. 6. Venlafaxine 75 mg p.o. daily. 7. Requip 0.25 mg p.o. q.h.s. 8. control 1 tab p.o. daily. ALLERGIES: IBUPROFEN. FAMILY HISTORY: Mom is 36 and healthy. Dad's history is unknown, though he is living. SOCIAL HISTORY: She does not smoke. She does not drink alcohol. 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 She is not . She has no children. She indicates that Amado Mims who she considers to be her father her healthcare proxy. REVIEW OF SYSTEMS: A complete 11-system review of systems is obtained. Pertinent positives and negatives are as per HPI and otherwise negative. PHYSICAL EXAMINATION GENERAL: The patient is a well-developed young female seen lying in the stretcher, in no acute distress. VITAL SIGNS: Blood pressure 152/104, pulse 93, respirations 28, temp 97.1, O2 sat 99% on room air. HEENT: Pupils are equal and round. Extraocular muscles are intact. Oropharynx is clear. Oral mucosa is moist. There is no submandibular, cervical , or supraclavicular adenopathy. Thyroid is not enlarged. No thyroid nodules noted. PULMONARY: Lungs are clear to auscultation bilaterally. CARDIAC: Normal S1, S2. Regular rate and rhythm. I do not appreciate any murmurs. There is trace bilateral lower extremity pitting edema, which the patient states is chronic. ABDOMEN: Bowel sounds present. Abdomen is soft, nontender, nondistended. MUSCULOSKELETAL: There is no cyanosis or clubbing of the digits. There is full active range of motion of all 4 extremities. NEURO: Cranial nerves II through XII are grossly intact. Sensation is intact to light touch throughout. Strength is 5/5 and symmetric in both upper and lower extremities bilaterally. PSYCH: The patient is alert. She is oriented x3. Affect appears appropriate. SKIN: Warm and dry. There are no rashes. DIAGNOSTIC STUDIES/LAB DATA: WBC 6.8, hemoglobin 9.7, hematocrit 29, platelets 310,000. INR is 0.93. Sodium 132, potassium 7.0, chloride 89, CO2 of 30, BUN 65, creatinine 8.38, glucose 98, calcium 10.4. Bilirubin 0.4, AST 15 , ALT 7, alk phos 316. Albumin 4.3. Repeat basic metabolic panel reveals potassium to be down to 6.0 and the creatinine up to 9.11. EKG reveals normal sinus rhythm with peaked T waves most notably in the precordial leads. ASSESSMENT AND PLAN: Ms. Swain is a 17-year-old female with a history of end - stage renal disease, hypertension, depression and anxiety who presents to the emergency room with complaints of headache, nausea, vomiting, and weakness and was found to be markedly hyperkalemic. 1. Hyperkalemia. The patient's potassium did improve with treatment with IV regular insulin and Kayexalate; however, the concern is that she may have some rebound hyperkalemia. Followup basic metabolic panel has been ordered for 6 a.m. The patient will have dialysis later today per Dr. Akers. The patient has had frequent bouts over the summer of hyperkalemia. I question if she is noncompliant with her diet leading to this. 2. Hypertension. The patient's blood pressure is moderately elevated at this point; however, she has not had her usual medications. She will continue on her usual dose of labetalol and lisinopril; however, her amlodipine dose is unclear. This will need to be determined from her pharmacy in the morning. Her blood pressure will be monitored. 3. Headache. The patient states that she will frequently get headaches similar to this. It is unclear what it is related to, though perhaps electrolyte derangements or hypertension. She will have p.r.n. Dilaudid for severe pain. I also ordered Tylenol and Grabill for less severe pain. 4. Depression/anxiety. We will continue venlafaxine. 5. DVT prophylaxis: According to the Adult Thrombosis Prophylaxis Risk Factor Assessment Guide, the patient has a total risk factor score of 1, making her low risk. Ambulation will be utilized for DVT prophylaxis. 6. Code status is full. TIME SPENT: Fifty minutes were spent admitting this patient. [id number]/CPS #: [id number] [facility]
[2018-05-25] MEDS ORDERED: Lidocaine 5% OINT TOPICAL ONE (08:07)
[2018-05-25] MEDS: Cinacalcet TAB* 30 MG PO SCH ×2 (08:40→13:32)
[2018-05-25] MEDS: Sevelamer TAB* 800 MG PO SCH ×2 (08:40→13:02)
[2018-05-25] MEDS ORDERED: [UNRECOGNIZED DRUG - OTHER] PO SCH (09:00)
[2018-05-25 11:47] VITALS: BP 136/93
--- NOTE | 2018-05-26 03:36 | DS ---
CC: Louann Plascencia DO from Pediatrics; Dr. Akers from Nephrology.* DISCHARGE SUMMARY: DATE OF ADMISSION: 05/25/18 DATE OF DISCHARGE: 05/25/18 PRIMARY CARE PROVIDER: Louann Plascencia DO, from Pediatrics. DISCHARGE DIAGNOSES: 1. Hyperkalemia. 2. Uncontrolled hypertension. SECONDARY DIAGNOSES: 1. History of end-stage renal disease, on hemodialysis. 2. History of hypertension. 3. History of depression and anxiety. MEDICATIONS AT DISCHARGE: Unchanged from admission include: 1. Sensipar 30 mg 3 times a day. 2. Labetalol 200 mg b.i.d. 3. Lisinopril 5 mg daily. 4. Zofran 8 mg on a p.r.n. basis. 5. Renvela 1600 mg p.o. with each meal. 6. Effexor XR 75 mg daily. LABORATORY DATA AND STUDIES PERFORMED DURING THE HOSPITAL STAY: Included on , sodium was 135, potassium was 5.0, chloride of 90, carbon dioxide 28, BUN is 73, creatinine of 9.09. HOSPITALIZATION COURSE: Thi Swain is a 17-year-old female with history of end-stage renal disease and dialysis who has had her usual dialysis on Tuesdays, , and Saturdays. She did not miss any, but she noted severe headache, when she presented to the emergency department on 05/24/18 at night. She was noted to have a potassium of 7.0 at presentation to the ED. The patient stated that she may have been noncompliant with her diet over the weekend. Once again, she denied missing dialysis. The patient's blood pressure had also been uncontrolled, in the 117 range in systolic blood pressures. The patient was placed on overnight observation with plans for likely dialysis in the morning on 05/25/18. By the morning on 05/25/18, the patient's potassium was down to 5.0. At that point, I discussed the case with Dr. Akers, who recommended no change in the patient's blood pressure medications and discharge home for scheduled dialysis tomorrow, on 05/26/18. But at the time of discharge, the patient's systolic pressures were in the 130s. Physical examination at the time of discharge, blood pressure 137/88, heart rate of 85 and regular, respiratory rate 16, oxygen saturation 99% on room air, temperature of 98.2. General: The patient is a pleasant 17-year-old female who is in no acute distress, alert and oriented x3. HEENT: Head: Atraumatic, normocephalic. Eyes: Pupils are equal and reactive to light and accommodation. Oropharynx clear. Mucosa moist. Neck: Supple. No JVD, no bruit bilaterally. Cardiovascular: Regular rate and rhythm. No murmur. Respiratory: Clear to auscultation bilaterally. Abdomen: Soft, nontender. Bowel sounds present in all 4 quadrants. Extremities: There is no edema. Pulses are +2 bilaterally. There is no clubbing or cyanosis. Neuro Evaluation: Speech clear. Cranial nerves II through XII grossly intact. Motor strength is 5/5 bilaterally. Skin: The patient has a left forearm dialysis fistula in place with positive thrill. For follow up, the patient is recommended to follow up with Dr. Plascencia in approximately 4 to 7 days. Please note that this is a short summary of the patient's hospitalization. Please refer to further medical records for details. TIME SPENT: Approximately 30 minutes were spent on the patient's discharge. [id number]/CPS #: [id number] [facility]
== END 2018-05-25 13:50 | disposition home or self-care (01) ==
LOC: ED 19:07 → MEDTELE 05-25 04:24
PROVIDERS: ADMIT Hospitalist; ATTEND Internal Medicine
CPT/HCPCS: 36415; 80048; 80053; 83605; 85025; 85610; 93005; A9270-GY; J0610; J1170; J2405

== ENCOUNTER 2018-06-15 01:05 | Emergency (ER) | payer MEDICARE, MEDICAID ==
--- OUTSIDE RECORDS SUMMARY | 2018-06-15 01:20 | XMS REPORT ---
:2000 External Reference #:[id number] Demographics Address [address] [place] [address] Mobile Phone [phone] Preferred Language [place] Guine[place] Marital Status Not Or Adventism Affiliation Unknown Race White Ethnic Group Not Or Author Organization [employer] Address [address] [place] [address] Phone [phone] Care Team Providers Name Role Phone Hayder Mansfield MD Care Team Information Forecast Analyst Unavailable Payers Type Date Identification Numbers Payment Provider Subscriber Medicaid Policy Number: [id number] Medicaid Thi Swain Group Name: 1 1 [address] PayID: [id number] [place] [address] Problems Date Description Provider Status Onset: 06/05/2018 Essential hypertension Hayder Mansfield MD Active Onset: 06/05/2018 Anxiety state Hayder Mansfield MD Active Onset: 06/05/2018 End-stage renal disease Hayder Mansfield MD Active Social History Type Date Description Comments Smoking Patient has never smoked Allergies, Adverse Reactions, Alerts Date Description Reaction Status Severity Comments 06/05/2018 NKDA active Medications Medication Date Status Form Strength Qnty SIG Indications Ordering Provider Venlafaxine Active Caps ER 150mg 30caps Take 1 F41.9 DAVID Grant ER 018 24HR tab daily Sensipatyrell Active Tablets 30mg 1 tab Unknown 000 three times daily Labetalol HCL Active Tablets 200mg take 1 Unknown 000 tablet by mouth twice a day Lisinopril 0 Active Tablets 5mg 1 by Unknown 000 mouth every day Zofran 0 Active Tablets 8mg take 1/2 Unknown 000 to 1 tablet every 12 hours as needed for nausea Renvela 0 Active Tablets 800mg 2 tabs Unknown 000 with meal and snacks Ortho 0 Active Tablets 0.18/0.215 1 by Unknown Tri-Cyclen Lo 000 /0.25 mouth mg-25 mcg every day Ropinirole HCL 0 Active Tablets 0.25mg 1 by Unknown 000 mouth 30 minutes before at bedtime Effexor XR 0 Hx Caps ER 150mg 30caps 1 by F41.9 Mansfield, 000 - 24HR mouth MD Hayder every day 018 Vital Signs Date Vital Result Comment 06/05/2018 Height 61.5 inches 5'1.50" Weight 109.00 lb states currently increased fluid Heart Rate 88 /min BP Systolic 150 mmHg no meds yet today BP Diastolic 100 mmHg no meds yet today Respiratory Rate 16 /min Body Temperature 98.2 F Pain Level 2 joint pain O2 % BldC Oximetry 98 % BMI (Body Mass Index) 20.3 kg/m2 Height Percentile 14 % Weight Percentile 14th Results Description No Information Procedures Date CPT Code Description Status 04/04/2018 51544 Removal Of Tunneled Central Venous Cath W/O Completed Subcutaneous Port/GRADUATE ASSISTANT Encounters Type Date Location Provider CPT E/M Dx Office Visit 04/07/2018 [facility] Franck Peterson, [address] N18.6 1:39p Infectious Diseases M.DJosé Miguel Z99.2 R50.9 R78.81 Office Visit 04/07/2018 11:37a [facility], [place] [address] N18.6 Hospitalists Z99.2 I16.0 Z86.69 F41.8 Office Visit 04/06/2018 11:37a [facility], Nila Quintanilla, [address] A41.9 Hospitalists Jose Guadalupe D72.829 E87.5 N18.6 F33.9 Office Visit 04/05/2018 11:37a [facility], Nila Quintanilla, [address] A41.9 Hospitalists Jose Guadalupe D72.829 E87.5 N18.6 F33.9 Office Visit 04/04/2018 1:37p [facility] Poncho Dorsey, [address] R51 Jose Guadalupe R50.9 N18.6 Z99.2 Office Visit 04/04/2018 11:36a [facility], MAURIZIO Perry [address] A41.9 Hospitalists N18.6 I10 R51 F32.9 F41.9 [facility] [place] [address] E78.5 Assoc, Hospitalists Jose Guadalupe N18.6 G44.59 I10 Office Visit 03/05/2018 11:37a [facility] [place], Elan Kulkarni, [address] N18.6 Hospitalnancy Shi I10 Office Visit 03/04/2018 11:37a [facility] MAURIZIO Bloom [address] N18.6 Assoc, Hospitalists I10 Plan of Care 06/05/2018 - Hayder Mansfield MDN18.6 End stage renal anhjuceG01.5 GkurczovfzyxY43.9 Anxiety disorder, unspecifiedNew Medication:Venlafaxine HCL ER 150 mgFollow up: Follow-up in 4 week. We are increasing your Effexor dose.I10 Essential (primary ) hypertension
[2018-06-15 01:36] LABS: ABS Basophils 0.1 10^3/ul (0-0.2); ABS Eosinophils 0.2 10^3/ul (0-0.6); ABS Lymphocytes 1.9 10^3/ul (1.0-4.8); ABS Monocytes 0.8 10^3/ul (0-0.8); ABS Neutrophils 6.2 10^3/ul (1.5-7.7); ABS Nucleated RBC 0 10^3/ul; Eosinophil % 1.9 % (0-6); Hematocrit 25 % (35-47); Hemoglobin 8.2 g/dl (12.0-16.0); Lymphocyte % 20.9 % (25-47); Mean Corpuscular HGB Conc 33 g/dl (31-36); Mean Corpuscular Hemoglobin 30 pg (27-31); Mean Corpuscular Volume 89 fL (80-97); Mean Platelet Volume 7.8 um3 (7.4-10.4); Nucleated Red Blood Cells % 0; Platelet Count 356 10^3/ul (150-450); Red Blood Count 2.76 10^6/ul (4.00-5.40); Red Cell Distribution Width 14 % (10.5-15); White Blood Count 9.2 10^3/ul (3.5-10.8)
--- NOTE | 2018-06-15 01:47 | ED ---
Influenza-Like Illness - HPI Summary HPI Summary: Patient with history of dialysis complains of sudden onset weakness, headache, tremors, SOB, nausea at midnight tonight. History of admission for hyper-K with similar symptoms. Most recent admission 05/25/18 for hyper-K of 7.0, uncontrolled hypertension. Patient states she has been compliant with dialysis and with medications. Patient gets dialysis Friday, , Friday, states last dialysis Wednesday 06/13. Denies fever, cough, sore throat, CP PE, abdominal pain, V/D, change in BM. Medical history is ESRD, HTN, depression. - History of Current Complaint Chief Complaint: EDGeneral Time Seen by Provider: 06/15/18 01:21 Hx Obtained From: Patient Onset/Duration: Sudden Onset Severity: Moderate Associated Signs & Symptoms: Headache - Allergy/Home Medications Allergies/Adverse Reactions: Allergies Allergy/AdvReac Type Severity Reaction Status Date / Time ibuprofen Allergy GI Upset Verified 06/15/18 01:11 PMH/Surg Hx/FS Hx/Imm Hx Endocrine/Hematology History: Reports: Hx Blood Transfusions, Hx Thyroid Disease - Hyperthyroid, Hx Anemia Cardiovascular History: Reports: Hx Hypertension Respiratory History: Denies: Hx Asthma History: Reports: Hx Chronic Renal Failure, Hx Dialysis, Hx Renal Disease, Other Problems/Disorders - UTI post kidney transplant, failed kidney transplant Sensory History: Denies: Hx Contacts or Glasses, Hx Legally Blind, Hx Deafness, Hx Hearing Aid , Hx Hearing Problem Opthamlomology History: Denies: Hx Contacts or Glasses, Hx Legally Blind Neurological History: Reports: Hx Headaches, Hx Seizures Psychiatric History: Reports: Hx Anxiety, Hx Depression Denies: Hx Eating Disorder, Hx of Violent Episodes Against Others - Surgical History Surgery Procedure, Year, and Place: s/p kidney transplant surgery 3 yrs ago, failed. appendectomy Hx Anesthesia Reactions: No - Immunization History Date of Tetanus Vaccine: Unk Date of Influenza Vaccine: Fall 2014 Infectious Disease History: No Infectious Disease History: Reports: Hx Clostridium Difficile Denies: Traveled Outside the [place] in Last 30 Days - Family History Known Family History: Positive: Hypertension, Other - schizophrenia Negative: Cardiac Disease, Diabetes - Social History Alcohol Use: None Hx Substance Use: No Substance Use Type: Reports: None Hx Tobacco Use: No Smoking Status (MU): Never Smoked Tobacco Review of Systems Constitutional: Negative Eyes: Negative ENT: Negative Cardiovascular: Negative Positive: Shortness Of Breath Positive: Nausea Genitourinary: Negative Musculoskeletal: Negative Skin: Negative Positive: Headache, Weakness Psychological: Normal All Other Systems Reviewed And Are Negative: Yes Physical Exam Triage Information Reviewed: Yes Vital Signs On Initial Exam: Initial Vitals Temp Pulse Resp BP Pulse Ox 98.4 F 100 20 151/108 100 06/15/18 01:05 06/15/18 01:05 06/15/18 01:05 06/15/18 01:05 06/15/18 01:05 Vital Signs Reviewed: Yes Appearance: Positive: Well-Appearing Skin: Positive: Warm Head/Face: Positive: Normal Head/Face Inspection Eyes: Positive: Normal Neck: Positive: Supple Respiratory/Lung Sounds: Positive: Clear to Auscultation Cardiovascular: Positive: Murmur Abdomen Description: Positive: Nontender Musculoskeletal: Positive: Normal Neurological: Positive: Normal Psychiatric: Positive: Normal AVPU Assessment: Alert - [place] Coma Scale Best Eye Response: 4 - Spontaneous Best Motor Response: 6 - Obeys Commands Best Verbal Response: 5 - Oriented Coma Scale Total: 15 Diagnostics - Vital Signs Vital Signs Temp Pulse Resp BP Pulse Ox 06/15/18 01:05 98.4 F 100 20 151/108 100 - Laboratory Lab Results: Lab Results 06/15/18 Range/Units 01:24 WBC 9.2 (3.5-10.8) 10^3/ul RBC 2.76 L (4.00-5.40) 10^6/ul Hgb 8.2 L (12.0-16.0) g/dl Hct 25 L (35-47) % MCV 89 (80-97) fL MCH 30 (27-31) pg MCHC 33 (31-36) g/dl RDW 14 (10.5-15) % Plt Count 356 (150-450) 10^3/ul MPV 7.8 (7.4-10.4) um3 Neut % (Auto) 68.0 (38-83) % Lymph % (Auto) 20.9 L (25-47) % [place] % (Auto) 8.6 H (0-7) % Eos % (Auto) 1.9 (0-6) % Baso % (Auto) 0.6 (0-2) % Absolute Neuts (auto) 6.2 (1.5-7.7) 10^3/ul Absolute Lymphs (auto) 1.9 (1.0-4.8) 10^3/ul Absolute Monos (auto) 0.8 (0-0.8) 10^3/ul Absolute Eos (auto) 0.2 (0-0.6) 10^3/ul Absolute Basos (auto) 0.1 (0-0.2) 10^3/ul Absolute Nucleated RBC 0 10^3/ul Nucleated RBC % 0 Result Diagrams: 06/15/18 01:24 06/15/18 01:24 Lab Statement: Any lab studies that have been ordered have been reviewed, and results considered in the medical decision making process. - EKG 1 Cardiac Rate: NL EKG Rhythm: Sinus Rhythm ST Segment: Normal Ectopy: None Flu Symptom Course/Dx - Course Course Of Treatment: Patient with history of dialysis complains of sudden onset weakness, headache, tremors, SOB, nausea at midnight tonight. History of admission for hyper-K with similar symptoms. Most recent admission 05/25/18 for hyper-K of 7.0, uncontrolled hypertension. Patient states she has been compliant with dialysis and with medications. Patient gets dialysis Friday, , Friday, states last dialysis Wednesday 06/13. Denies fever, cough, sore throat, CP PE, abdominal pain, V/D, change in BM. Medical history is ESRD , HTN, depression. Physical exam remarkable only for cardiac murmur. Vital signs within normal limits. Labs at patient baseline. Next dialysis due tomorrow 06/16. Patient will follow-up for dialysis then. Patient understands and approves of plan - Diagnoses Provider Diagnoses: Malaise Discharge - Sign-Out/Discharge Documenting (check all that apply): Patient Departure - Discharge Plan Condition: Stable Disposition: HOME Patient Education Materials: Dialysis Diet (DC), Hemodialysis (DC) Referrals: No Primary Care Phys,NOPCP [Primary Care Provider] - Additional Instructions: Follow-up with dialysis on Friday06/16/18. Return to the ED for any new or worsening symptoms - Billing Disposition and Condition Condition: STABLE Disposition: Home
[2018-06-15 01:54] LABS: EGFR Non-African American 5.8 (>60)
[2018-06-15 02:32] VITALS: BP 153/96
== END 2018-06-15 02:31 | disposition home or self-care (01) ==
LOC: ED 01:05
DX: R53.81 Other malaise (principal); I12.0 Hypertensive chronic kidney disease with stage 5 chronic kidney disease or end stage renal disease; N18.6 End stage renal disease; Z99.2 Dependence on renal dialysis
CPT/HCPCS: 36415; 80053; 84702; 85025; 86140; 93005; 99282

== ENCOUNTER 2018-07-06 17:56 | Emergency (ER) | payer MEDICAID, MEDICARE ==
[2018-07-06 19:25] VITALS: BP 154/98
== END 2018-07-06 20:10 | disposition left against medical advice (07) ==
LOC: ED 17:56
DX: E87.5 Hyperkalemia (principal); Z53.21 Procedure and treatment not carried out due to patient leaving prior to being seen by health care provider

== ENCOUNTER 2018-07-13 13:59 | Inpatient (IN) | payer MEDICARE, MEDICAID ==
[2018-07-13] MEDS ORDERED: Acetaminophen TAB* 325 MG PO ONE (14:39)
--- NOTE | 2018-07-13 14:41 | ED ---
Complex/Multi-Sys Presentation - HPI Summary HPI Summary: The pt is a 17 y/o female on dialysis presenting to [facility] c/o weakness since 1330 hrs today. She notes confusion and FLORES but denies N/V/D. The sx started while at the gym. Before that, she had a smoothie leading her to suspect hypokalemia, which has occured before. - History Of Current Complaint Chief Complaint: EDWeakness Time Seen by Provider: 07/13/18 14:32 Hx Obtained From: Patient Onset/Duration: Sudden Onset, Still Present Timing: Constant Associated Signs And Symptoms: Positive: Confusion, Weakness. Negative: Nausea , Vomiting, Diarrhea Related History: Similar Episode/Diagnosed As: - Previos hypokalemia episode - Allergies/Home Medications Allergies/Adverse Reactions: Allergies Allergy/AdvReac Type Severity Reaction Status Date / Time ibuprofen Allergy GI Upset Verified 06/15/18 01:11 NSAIDS (Non-Steroidal Allergy See Comment Verified 07/06/18 19:25 Anti-Inflamma Home Medications: Home Medications Ropinirole TAB* [Requip TAB*] 0.5 mg PO BEDTIME 07/13/18 [History Confirmed 01/23] Sevelamer TAB* [Renvela TAB*] 1,600 mg PO PC 07/13/18 [History Confirmed ] PMH/Surg Hx/FS Hx/Imm Hx Previously Healthy: No Endocrine/Hematology History: Reports: Hx Blood Transfusions, Hx Thyroid Disease - Hyperthyroid, Hx Anemia Cardiovascular History: Reports: Hx Hypertension Respiratory History: Denies: Hx Asthma History: Reports: Hx Chronic Renal Failure, Hx Dialysis, Hx Renal Disease, Other Problems/Disorders - UTI post kidney transplant, failed kidney transplant Sensory History: Denies: Hx Contacts or Glasses, Hx Legally Blind, Hx Deafness, Hx Hearing Aid , Hx Hearing Problem Opthamlomology History: Denies: Hx Contacts or Glasses, Hx Legally Blind Neurological History: Reports: Hx Headaches, Hx Seizures Psychiatric History: Reports: Hx Anxiety, Hx Depression Denies: Hx Eating Disorder, Hx of Violent Episodes Against Others - Cancer History Cancer Type, Location and Year: None reported - Surgical History Surgery Procedure, Year, and Place: s/p kidney transplant surgery 3 yrs ago, failed. appendectomy Hx Anesthesia Reactions: No - Immunization History Date of Tetanus Vaccine: Unk Date of Influenza Vaccine: Fall 2014 Infectious Disease History: No Infectious Disease History: Reports: Hx Clostridium Difficile Denies: Traveled Outside the [place] in Last 30 Days - Family History Known Family History: Positive: Hypertension, Other - schizophrenia Negative: Cardiac Disease, Diabetes - Social History Occupation: Student Lives: Dormitory/Roommates Alcohol Use: None Hx Substance Use: No Substance Use Type: Reports: None Hx Tobacco Use: No Smoking Status (MU): Never Smoked Tobacco Review of Systems Constitutional: Other - Positive:Confusion Negative: Vomiting, Diarrhea, Nausea Positive: Headache, Weakness All Other Systems Reviewed And Are Negative: Yes Physical Exam - Summary Physical Exam Summary: Appearance: Well-appearing, Well-nourished, lying in bed comfortably Skin: Warm, dry, no obvious rash Eyes: sclera anicteric, no conjunctival pallor ENT: mucous membranes moist, pharynx appears normal Neck: Supple, nontender Respiratory: Clear to auscultation, no signs of respiratory distress Cardiovascular: Normal S1, S2. No murmurs. Normal distal pulses in tibial and radial bilaterally. Abdomen: Soft, nontender, normal active bowel sounds present Musculoskeletal: Normal, Strength/ROM Intact Neurological: A&Ox3, awake and alert, mentation is normal, speech is fluent and appropriate Psychiatric: affect is normal, does not appear anxious or depressed Triage Information Reviewed: Yes Vital Signs On Initial Exam: Initial Vitals Temp Pulse Resp BP Pulse Ox 98.4 F 78 18 149/84 100 07/13/18 14:15 07/13/18 14:15 07/13/18 14:15 07/13/18 14:15 07/13/18 14:15 Vital Signs Reviewed: Yes Diagnostics - Vital Signs Vital Signs Temp Pulse Resp BP Pulse Ox 07/13/18 14:15 98.4 F 78 18 149/84 100 - Laboratory Result Diagrams: 07/13/18 15:38 07/13/18 15:38 Lab Statement: Any lab studies that have been ordered have been reviewed, and results considered in the medical decision making process. Complex Multi-Symp Course/Dx Course Of Treatment: This is a 17-year-old woman on dialysis for end-stage renal failure who has a history of hyperkalemia. She present now with the usual symptoms of her elevated potassium, namely some headache and profound weakness. She was here about a month ago with similar symptoms which proved unrelated to her potassium as her potassium level and was normal. However her old cardiogram today shows widening of her QRS with peaked T waves, similar to the last time she had a verified potassium of 7, and quite different from the tracing of last month when her potassium was normal. While her lab studies are not back yet, I do suspect she is having significant hyperkalemia and have ordered the appropriate therapy - Diagnoses Provider Diagnoses: ESRD (end stage renal disease) on dialysis, Hyperkalemia - Physician Notifications Discussed Care Of Patient With: Juan Alberto Akers - Distribution Designer Time Discussed With Above Provider: 16:20 - Critical Care Time Critical Care Time: 30-74 min - Patient on dialysis with acute severe hyperkalemia requiring intravenous treatment to lower the potassium associated with EKG changes consistent with hyperkalemia. The patient will be dialyzed up in the ICU. Discharge - Sign-Out/Discharge Documenting (check all that apply): Patient Departure - Discharge Plan Condition: Guarded Disposition: ADMITTED TO [facility] Referrals: [facility] [Outside] - Billing Disposition and Condition Condition: GUARDED Disposition: Admitted to [facility] - Attestation Statements Document Initiated by Scribe: Yes Documenting Scribe: Marta Rodriguez Provider For Whom Scribe is Documenting (Include Credential): Dr. Sloan Dotson MD Scribe Attestation: IMarta, scribed for Dr. Sloan Dotson MD on 07/13/18 at 1639.
[2018-07-13] MEDS ORDERED: Insulin REGULAR(*) 1 UNITS UNIT IV PUSH ONE (15:29)
[2018-07-13] MEDS ORDERED: Dextrose 50% Syringe 50 ML* 25 GM/50 ML SYRINGE IV PUSH ONE ×2 (15:29→17:16)
[2018-07-13] MEDS ORDERED: Sodium Polystyrene ORAL.SOL* 15 GM/60 ML BTL PO ONE (15:29)
[2018-07-13 15:54] LABS: ABS Basophils 0 10^3/ul (0-0.2); ABS Eosinophils 0.2 10^3/ul (0-0.6); ABS Lymphocytes 1.2 10^3/ul (1.0-4.8); ABS Monocytes 0.4 10^3/ul (0-0.8); ABS Neutrophils 4.3 10^3/ul (1.5-7.7); ABS Nucleated RBC 0 10^3/ul; Eosinophil % 3.4 % (0-6); Hematocrit 28 % (35-47); Hemoglobin 9.4 g/dl (12.0-16.0); Lymphocyte % 19.2 % (25-47); Mean Corpuscular HGB Conc 33 g/dl (31-36); Mean Corpuscular Hemoglobin 32 pg (27-31); Mean Corpuscular Volume 95 fL (80-97); Mean Platelet Volume 8.4 fL (7.4-10.4); Nucleated Red Blood Cells % 0; Platelet Count 301 10^3/ul (150-450); Red Blood Count 2.96 10^6/ul (4.00-5.40); Red Cell Distribution Width 18 % (10.5-15); White Blood Count 6.1 10^3/ul (3.5-10.8)
[2018-07-13] MEDS ORDERED: diPHENhydraMINE IV* 50 MG/ML 1 ml VIAL (BENADRYL) IV ONE (16:31)
[2018-07-13] MEDS ORDERED: Calcium Gluconate INJ* 2 GM in NS 0.9% 100 ML* 100 ML IVPB ONE (16:32)
[2018-07-13] MEDS ORDERED: diPHENhydraMINE PO* 50 MG PO ONE (16:43)
[2018-07-13] MEDS ORDERED: diPHENhydraMINE PO* 50 MG ONE (16:46)
[2018-07-13] MEDS ORDERED: Acetaminophen TAB* 325 MG PO PRN (16:56)
[2018-07-13] MEDS ORDERED: Ondansetron INJ* 2 MG/ML VIAL IV PRN (16:56)
[2018-07-13] MEDS ORDERED: Dextrose 50% Syringe 50 ML* 25 GM/50 ML SYRINGE ONE (17:13)
[2018-07-13] MEDS: Sevelamer TAB* 800 MG PO SCH (18:09)
[2018-07-13] MEDS ORDERED: Heparin DIALYSIS ONLY(*) 1,000 UNITS/ML VIAL DIALYSIS ONE (19:00)
[2018-07-13] MEDS: Cinacalcet TAB* 30 MG PO SCH (20:12)
[2018-07-13] MEDS ORDERED: Ropinirole TAB* 0.5 MG TAB PO SCH (21:00)
--- NOTE | 2018-07-13 21:11 | HP ---
CC: Hayder Mansfield MD, [facility]; Dr. Akers * HISTORY AND PHYSICAL: DATE OF ADMISSION: 07/13/18 PRIMARY CARE PROVIDER: Dr. Mansfield. MY ATTENDING WHILE IN THE HOSPITAL: Francois Mcgovern MD * (report dictated by Shiv Carmona NP). CONSULTING BRIM GREASER OPERATOR: Dr. Akers. CHIEF COMPLAINT: Weakness. HISTORY OF PRESENT ILLNESS: Ms. 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 She is status post renal transplant with failure. She is on hemodialysis, last dialysis was on Friday. She has a history of hypertension, depression, anxiety, history of seizures, and PRES syndrome in the setting of uncontrolled hypertension in the past. She presents to our ER today stating that she did have a smoothie today that had almonds in it, spinach , kale, bananas, strawberries and she knew that that was high in potassium in hindsight, but she drank that and she said then she started feeling weak and she thought maybe her potassium was high. She does state that she has been following her diet closely over the weekend; however, she also in the next breath did tell me that she has a hard time watching her potassium and what foods are high in potassium because she is trying to "live a normal 17-year-old' s life." She came into the ED. She was noted to have a widened QRS. She was noted to have peak T-waves, was found to have a potassium of 8.7. She denies any chest pain or shortness of breath. Denies having any abdominal pain. She denies any recent nausea or vomiting. No fevers or chills. She said she again had dialysis on Friday and she has been taking her meds as prescribed. She came into the ED, was found to have elevated potassium, and we were asked to evaluate for admission. PAST MEDICAL HISTORY: Significant for: 1. End-stage renal disease. 2. History of post-strep glomerulonephritis. 3. Hypertension. 4. Depression. 5. Anxiety. 6. PRES syndrome. 7. 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 PAST SURGICAL HISTORY: She has had: 1. Left arm surgery. 2. PEG tube placement and also extraction. 3. Renal transplant. 4. Appendectomy. 5. AV fistula. 6. Tunneled catheter placement and removal. HOME MEDICATIONS: Include: 1. Requip 0.5 mg p.o. at bedtime. 2. Labetalol 200 mg p.o. b.i.d. 3. Sensipar 30 mg p.o. t.i.d. 4. Effexor 75 mg p.o. daily. 5. Zofran 8 mg every 8 hours as needed. 6. Lisinopril 5 mg daily. 7. Renvela 1600 mg p.o. after meals. ALLERGIES TO MEDICATIONS: NSAIDS. FAMILY HISTORY: She says she was adopted. She does not really know her biological parents. SOCIAL HISTORY: She does not smoke. She does not drink. She lives with roommates. Surrogate decision maker, she does not wish to appoint currently. REVIEW OF SYSTEMS: There is no documented fever. She denied having any significant weight change. There is no double vision. She denies having any ear discharge. There is no rhinorrhea. There is no sore throat. No thyroid enlargement. She denied having any chest pain. There was no orthopnea. There was no nocturnal dyspnea. She denies having any abdominal pain. There is no nausea. There was no vomiting. No dysuria, no frequency. No seizure. There was no loss of consciousness. No pruritus and no skin ulcerations. Review of 14 systems was completed, all others negative. PHYSICAL EXAMINATION GENERAL: At this time, Ms. Swain is a 17-year-old female patient. She is sitting in the ED stretcher. She does not appear to be in any acute distress. VITAL SIGNS: Blood pressure 149/84 with a pulse of 78, respirations 18, O2 sat 100%, temperature 98.4. HEENT: Head: Atraumatic and normocephalic. Eyes: EOMs intact. Sclerae anicteric and not pale. Throat: Oral mucosa appears to be moist. No oropharyngeal erythema. NECK: Supple. LUNGS: Clear to auscultation bilaterally. No wheezes, rales, or rhonchi. HEART: Sounds S1, S2. She had a regular rate and rhythm. There were no murmurs, rubs, or gallops. ABDOMEN: Soft. It was flat. It was nontender. Bowel sounds were present. EXTREMITIES: Pulses were 2+ throughout. She is moving all 4 extremities with 5 /5 strength. NEUROLOGICAL: She is awake. She is alert. She is oriented x3. Her tongue is midline. Java J2Ee Architect were equal. She had no gross focal deficits. SKIN: Intact. DIAGNOSTIC STUDIES/LAB DATA: Labs today are revealing WBC of 6.1, RBC of 2.96 , hemoglobin of 9.4, hematocrit of 28, platelet count of 301,000. Her sodium was 132, potassium was 8.7, chloride of 92, bicarb 24, BUN 84, creatinine of 9.99, glucose 93, calcium of 10.3. She did have an EKG obtained today, which when I reviewed, again I do note the peaked T-wave, widened QRS, which when you look through her previous EKG after the correction of the hyperkalemia, this is certainly indicative and abnormal due to the hyperkalemia. It is a normal sinus rhythm with a rate of 76 on today 's EKG. Old medical records were reviewed. ASSESSMENT AND PLAN: Ms. Swain is a 17-year-old female patient coming into the ED today with complaints of weakness, and on evaluation found to have hyperkalemia. She will be admitted under inpatient status to the ICU for: 1. Hyperkalemia. I have touched base with Dr. Hartman, in addition to this I did touch base with Dr. Akers. The dialysis nurse is arriving momentarily. The patient at this point is receiving currently calcium gluconate, in addition to this has received IV insulin, dextrose, in addition to this has also received Kayexalate. She will be in our ICU on telemetry monitoring. I am holding her lisinopril acutely. I have ordered a nutrition consult as I suspect that this is a dietary indiscretion that is causing the frequent bouts of hyperkalemia and she will need further education, but at this point we will get her on dialysis. I will repeat her labs later tonight around midnight and then again in the morning following her BMP. 2. End-stage renal disease. Again, Dr. Akers has been consulted. 3. Hypertension. I have held her lisinopril. I will continue with labetalol. Restart lisinopril when she is not hyperkalemic. 4. History of depression and anxiety. Continue with supportive care. 5. History of seizures. It happened once previously in the setting of hypertension. Her blood pressure is now in the 140s that is stable. I will order seizure precautions. 6. DVT prophylaxis: I have ordered SCDs. 7. Code status: Full code. 8. Fluids, electrolytes, and nutrition: She can have a renal diet. TIME SPENT: Time spent on the admission was 60 minutes, greater than half the time spent [id number] with the patient obtaining my history and physical, other half of the time spent going over the plan of care with the patient and implementing the plan of care. I did discuss the plan of care with my attending, Dr. Mcgovern; he is in agreement. SHIV CARMONA, [employer] MOLD FILLER [id number]/CPS #: [id number] [place]
[2018-07-13] MEDS: Labetalol TAB* 200 MG PO SCH (21:28)
[2018-07-14 00:20] LABS: EGFR Non-African American 13.3 (>60)
[2018-07-14 05:02] LABS: ABS Basophils 0 10^3/ul (0-0.2); ABS Eosinophils 0.1 10^3/ul (0-0.6); ABS Lymphocytes 1.2 10^3/ul (1.0-4.8); ABS Monocytes 0.3 10^3/ul (0-0.8); ABS Nucleated RBC 0 10^3/ul; Eosinophil % 2.7 % (0-6); Hematocrit 27 % (35-47); Lymphocyte % 32.6 % (25-47); Mean Corpuscular HGB Conc 33 g/dl (31-36); Mean Corpuscular Hemoglobin 31 pg (27-31); Mean Corpuscular Volume 94 fL (80-97); Mean Platelet Volume 8.4 fL (7.4-10.4); Nucleated Red Blood Cells % 0; Platelet Count 304 10^3/ul (150-450); Red Cell Distribution Width 17 % (10.5-15); White Blood Count 3.6 10^3/ul (3.5-10.8)
[2018-07-14 05:09] LABS: INR 0.91 (0.77-1.02)
[2018-07-14 05:37] LABS: EGFR Non-African American 11.3 (>60)
[2018-07-14] MEDS: Labetalol TAB* 200 MG PO SCH (07:52)
[2018-07-14] MEDS: Sevelamer TAB* 800 MG PO SCH (07:53)
[2018-07-14] MEDS: Cinacalcet TAB* 30 MG PO SCH (07:53)
[2018-07-14] MEDS ORDERED: Venlafaxine EXT RELEASE CAP* 75 MG PO SCH (09:00)
--- NOTE | 2018-07-14 09:38 | DCNOTE ---
Subjective Date of Service: 07/14/18 Interval History: Patient reports she feels at her baseline and wants to go home. She denies any pain, SOB, CP. No N/V/D or abdominal pain. Pt states understanding she cannot drink a smoothie. She states she is normally very careful with her diet Objective Active Medications: Acetaminophen (Tylenol Tab*) 650 mg PO Q4H PRN PRN Reason: FEVER/PAIN Cinacalcet (Sensipar Tab*) 30 mg PO TID [facility] Last Admin: 07/14/18 07:53 Dose: 30 mg Labetalol HCl (Trandate Tab*) 200 mg PO BID [facility] Last Admin: 07/14/18 07:52 Dose: 200 mg Ondansetron HCl (Zofran Inj*) 4 mg IV Q6H PRN PRN Reason: NAUSEA Ropinirole HCl (Requip Tab*) 0.5 mg PO BEDTIME [facility] Last Admin: 07/13/18 20:12 Dose: 0.5 mg Sevelamer Carbonate (Renvela Tab*) 1,600 mg PO PC [facility] Last Admin: 07/14/18 07:53 Dose: 1,600 mg Venlafaxine HCl (Effexor Xr Cap*) 75 mg PO QAM [facility] Last Admin: 07/14/18 07:53 Dose: 75 mg Vital Signs - 8 hr 07/14/18 07/14/18 07/14/18 01:45 02:00 02:01 Temperature Pulse Rate 87 89 Respiratory 22 18 19 Rate Blood Pressure 124/86 (mmHg) O2 Sat by Pulse 99 99 Oximetry 07/14/18 07/14/18 07/14/18 02:30 03:00 03:01 Temperature Pulse Rate 90 87 91 Respiratory 19 19 21 Rate Blood Pressure 110/72 112/79 (mmHg) O2 Sat by Pulse 99 99 100 Oximetry 07/14/18 07/14/18 07/14/18 03:30 04:00 04:01 Temperature 97.7 F Pulse Rate 82 79 80 Respiratory 27 17 16 Rate Blood Pressure 125/85 112/71 (mmHg) O2 Sat by Pulse 100 98 99 Oximetry 07/14/18 07/14/18 07/14/18 04:30 04:46 05:00 Temperature Pulse Rate 85 92 Respiratory 16 16 22 Rate Blood Pressure 108/83 121/81 (mmHg) O2 Sat by Pulse 100 94 Oximetry 07/14/18 07/14/18 07/14/18 05:01 05:30 06:00 Temperature Pulse Rate 81 86 78 Respiratory 19 24 32 Rate Blood Pressure 121/81 120/81 (mmHg) O2 Sat by Pulse 97 97 100 Oximetry 07/14/18 07/14/18 07/14/18 06:01 06:30 07:00 Temperature Pulse Rate 77 78 75 Respiratory 25 16 29 Rate Blood Pressure 124/85 (mmHg) O2 Sat by Pulse 99 100 100 Oximetry 07/14/18 07/14/18 07/14/18 07:01 07:30 07:49 Temperature 98.8 F Pulse Rate 79 80 Respiratory 21 19 Rate Blood Pressure 130/94 135/94 (mmHg) O2 Sat by Pulse 100 100 Oximetry 07/14/18 07/14/18 07/14/18 08:00 08:01 09:00 Temperature Pulse Rate 88 82 Respiratory 21 16 22 Rate Blood Pressure 130/91 (mmHg) O2 Sat by Pulse 98 99 Oximetry Oxygen Devices in Use Now: None Appearance: 17 yo female A+O x3 in NAD. Eyes: No Scleral Icterus, PERRLA Ears/Nose/Mouth/Throat: Mucous Membranes Moist Respiratory: Symmetrical Chest Expansion and Respiratory Effort, Clear to Auscultation Cardiovascular: NL Sounds; No Murmurs; No JVD, RRR, No Edema Abdominal: NL Sounds; No Tenderness; No Distention Extremities: No Edema, No Clubbing, Cyanosis, - - left forearm fistula wrapped in CD+I dressing Skin: No Rash or Ulcers, No Nodules or Sclerosis Neurological: Alert and Oriented x 3, NL Sensation, NL Gait Lines/Tubes/Other Access: Clean, Dry and Intact Peripheral IV Nutrition: Taking PO's Result Diagrams: 07/14/18 04:45 07/14/18 08:34 Microbiology and Other Data: Microbiology 07/13/18 17:34 Nasal Screen MRSA (PCR) - Final Nasal Mrsa Not Detected Assess/Plan/Problems-Billing Assessment: - Patient Problems (1) Hyperkalemia Comment: - Secondary to diet - Resolved. EKG peaked T waves resolved. Pt did flip her twaves in lead V4-V5, which seem to be improving in repeat ekg. Asymptomatic. Discussed with Music Intern. No further recommendations. -continue renal diet and HD schedule of Tue/Thur/SAT - Diet reviewed with pt, she states understanding (2) ESRD (end stage renal disease) on dialysis SNOMED Code(s): 043689120 Comment: /VAL/SAT HD via fistula lytes and volume okay (3) Full code status (4) DVT prophylaxis Comment: - SCDs. Status and Disposition: inpatient with hyyperkalemia secondary to diet. Plan for DC to home. SEE DICTATED DISCHARGE SUMMARY
[2018-07-14] MEDS ORDERED: Lisinopril TAB* 5 MG PO SCH (10:00)
[2018-07-14 10:09] VITALS: BP 120/86
--- NOTE | 2018-07-14 21:18 | DS ---
DISCHARGE SUMMARY: DATE OF ADMISSION: 07/13/18. DATE OF TRANSFER: 07/14/18. PROVIDER: Manisha Pappas NP. ATTENDING PHYSICIAN: Dr. Mansfield * (report dictated by Manisha Pappas NP). PRIMARY CARE PROVIDER: Dr. Mansfield, [facility]. LEATHER SPLITTER: Dr. Akers. DISCHARGE DIAGNOSIS: Hyperkalemia, diet induced. SECONDARY DIAGNOSES: 1. End-stage renal disease. 2. History of post streptococcal glomerulonephritis. 3. Failed kidney transplant. 4. Hypertension. 5. Depression. 6. Anxiety. 7. PRES syndrome. 8. 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 She presented to the emergency department with weakness, reporting she had a smoothie that was most likely high in potassium and stating after she drank this smoothie, she started to feel weak and unwell, which she associates with hyperkalemia. In the emergency department, she was found to have a potassium of 8.7. Her EKG showed peaked T-waves. She was admitted to the hospitalist service to the intensive care unit where she was monitored closely on telemetry. The dialysis nurse came in the day of admission, which was last evening and dialyzed the patient. Her repeat EKG shows that the peaked T-waves have resolved. In the emergency department, she did get dextrose, calcium gluconate, and insulin. This morning the patient is asking for discharge to home stating that she feels that she is at her baseline. Her potassium this morning is 4.3. She is aware of her diet restrictions. She is to follow up with [facility] and Dr. Akers. She will resume her normal dialysis schedule with next dialysis day on , 07/16/18. DISCHARGE MEDICATIONS: 1. Requip 0.5 mg p.o. at bedtime. 2. Labetalol 200 mg p.o. b.i.d. 3. Sensipar 30 mg p.o. t.i.d. 4. Effexor 75 mg p.o. daily. 5. Zofran 8 mg q. 8 hours as needed. 6. Lisinopril 5 mg daily. 7. Renvela 1600 mg p.o. at bedtime after meals. DISCHARGE PLAN: 1. The patient is stable for discharge to home. 2. Follow up with [facility] with either Dr. Mansfield or Dr. Mendes within 1 week. 3. Follow up with Dr. Akers at previously scheduled appointment. 4. Again, diet restrictions were discussed with the patient. She states understanding. 5. The patient was instructed to return to the emergency department with any worsening or concerning symptoms. 6. Continue dialysis Friday, , and Friday via fistula. TIME SPENT: Approximately 60 minutes was spent on this discharge. MANISHA PAPPAS NP [id number]/[facility] #: [id number] [place]
== END 2018-07-14 10:47 | disposition home or self-care (01) | DRG 425 ==
LOC: ED 13:59 → ICU 16:50
PROVIDERS: ADMIT Internal Medicine; ATTEND Internal Medicine
PROC: 5A1D70Z Performance of Urinary Filtration, Intermittent, Less than 6 Hours Per Day (ICD-10-PCS; principal; 2018-07-13)
DX: E87.5 Hyperkalemia (principal); I67.83 Posterior reversible encephalopathy syndrome; N18.6 End stage renal disease; T86.12 Kidney transplant failure; I12.0 Hypertensive chronic kidney disease with stage 5 chronic kidney disease or end stage renal disease; F32.9 Major depressive disorder, single episode, unspecified; F41.9 Anxiety disorder, unspecified; Z99.2 Dependence on renal dialysis; Z79.899 Other long term (current) drug therapy
CPT/HCPCS: 36415; 80048; 85025; 85610; 87641; 93005; 99285; A9270-GY; J0610; J1644

== ENCOUNTER 2019-02-24 16:23 | Emergency (ER) | payer MEDICAID, MEDICARE ==
--- NOTE | 2019-02-24 18:35 | ED ---
Abdominal Pain/Female - HPI Summary HPI Summary: The pt is a 18 y/o F presenting to [facility] with a CC of N/V/D. The pt has chronic renal failure and has been suffering from diarrhea since yesterday, nausea today with 6 instances of vomiting, flank pain, cramping, and a fever. Her pain is rated a 7/10 in severity. The pt denies any CP, abdominal pain, chills, sweating, fatigue, and changes in urine or urinary symptoms. She states that she became concerned when her flank pain increased. She has no aggravating or alleviating symptoms and had dialysis earlier this morning. 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 Rushing. She also has a Hx of Cdiff in the past. HOwever, diarrhea has since resolved. Vomiting has also resolved. At this time she has only mild abdominal cramping and nausea. - History of Current Complaint Chief Complaint: EDNauseaVomitDiarrh Stated Complaint: NAUSEA, VOMITING, DIALYSIS PT PER PT Time Seen by Provider: 02/24/19 18:08 Hx Obtained From: Patient ?: No Onset/Duration: Sudden Onset - 02/23/19, Lasting Days - 1, Still Present, Worse Since Timing: Constant Severity Initially: Moderate Severity Currently: Moderate Pain Intensity: 7 Pain Scale Used: 0-10 Numeric Location: Flank Radiates: No Character: Cramping Aggravating Factor(s): Nothing Alleviating Factor(s): Nothing Associated Signs and Symptoms: Positive: Negative - chills, sweating, fatigue, abdominal pain, Fever, Nausea, Vomiting, Diarrhea, Other: - POSITIVE: flank pain. Negative: Diaphoresis, Cough, Chest Pain, Constipation, Urinary Symptoms Allergies/Adverse Reactions: Allergies Allergy/AdvReac Type Severity Reaction Status Date / Time NSAIDS (Non-Steroidal Allergy See Comment Verified 02/24/19 16:29 Anti-Inflamma Insulins AdvReac Severe See Comment Verified 02/24/19 16:29 Home Medications: Home Medications Amlodipine Besylate [Amlodipine 2.5 mg tab] 2.5 mg PO DAILY 02/24/19 [History Confirmed 02/24/19] Lisinopril 10 mg PO DAILY 02/24/19 [History Confirmed 02/24/19] PMH/Surg Hx/FS Hx/Imm Hx Previously Healthy: No Endocrine/Hematology History: Reports: Hx Blood Transfusions, Hx Thyroid Disease - Hyperthyroid, Hx Anemia Cardiovascular History: Reports: Hx Hypertension Respiratory History: Denies: Hx Asthma History: Reports: Hx Chronic Renal Failure, Hx Dialysis, Hx Renal Disease, Other Problems/Disorders - UTI post kidney transplant, failed kidney transplant Sensory History: Denies: Hx Contacts or Glasses, Hx Legally Blind, Hx Deafness, Hx Hearing Aid , Hx Hearing Problem Opthamlomology History: Denies: Hx Contacts or Glasses, Hx Legally Blind Neurological History: Reports: Hx Headaches, Hx Seizures Psychiatric History: Reports: Hx Anxiety, Hx Depression Denies: Hx Eating Disorder, Hx of Violent Episodes Against Others - Cancer History Cancer Type, Location and Year: None reported - Surgical History Surgery Procedure, Year, and Place: s/p kidney transplant surgery 3 yrs ago, failed. appendectomy Hx Anesthesia Reactions: No - Immunization History Date of Tetanus Vaccine: Unk Date of Influenza Vaccine: Fall 2014 Infectious Disease History: Yes Infectious Disease History: Reports: Hx Clostridium Difficile Denies: Traveled Outside the [place] in Last 30 Days - Family History Known Family History: Positive: Hypertension, Other - schizophrenia Negative: Cardiac Disease, Diabetes - Social History Alcohol Use: None Hx Substance Use: No Substance Use Type: Reports: None Hx Tobacco Use: No Smoking Status (MU): Never Smoked Tobacco Review of Systems Negative: Fever, Chills, Fatigue, Skin Diaphoresis Negative: Chest Pain Positive: Vomiting, Diarrhea, Nausea. Negative: Abdominal Pain Genitourinary: Negative - All symptoms negative except flank pain Positive: flank pain Positive: Other All Other Systems Reviewed And Are Negative: Yes Physical Exam - Summary Physical Exam Summary: Constitutional: Well-developed, Well-nourished, Alert. (-) Distressed Skin: Warm, Dry HENT: Normocephalic; Atraumatic Eyes: Conjunctiva normal Neck: Musculoskeletal ROM normal neck. (-) JVD, (-) Stridor, (-) Tracheal deviation Cardio: Rhythm regular, rate normal, Heart sounds normal; Intact distal pulses; The pedal pulses are 2+ and symmetric. Radial pulses are 2+ and symmetric. (-) Murmur Pulmonary/Chest wall: Effort normal. (-) Respiratory distress, (-) Wheezes, (-) Rales Abd: Soft, RUQ and LUQ tenderness, (-) Distension, (-) Guarding, (-) Rebound Musculoskeletal: (-) Edema Lymph: (-) Cervical adenopathy Neuro: Alert, Oriented x3 Psych: Mood and affect Normal Triage Information Reviewed: Yes Vital Signs On Initial Exam: Initial Vitals Temp Pulse Resp BP Pulse Ox 100.4 F 123 18 148/101 99 02/24/19 16:25 02/24/19 16:25 02/24/19 16:25 02/24/19 16:25 02/24/19 16:25 Vital Signs Reviewed: Yes Diagnostics - Vital Signs Vital Signs Temp Pulse Resp BP Pulse Ox 02/24/19 16:25 100.4 F 123 18 148/101 99 - Laboratory Result Diagrams: 02/24/19 19:04 02/24/19 19:04 Lab Statement: Any lab studies that have been ordered have been reviewed, and results considered in the medical decision making process. - Radiology CXR Radiology Interpretation Completed By: Radiologist Summary of Radiographic Findings: No acute findings. Pending offical review. - Ultrasound Galbladder US Ultrasound Interpretation Completed By: Radiologist Summary of Ultrasound Findings: No acute abnormality. ED Physician has reviewed this report. - EKG 190 Cardiac Rate: Tachycardia - 91 EKG Rhythm: Sinus Tachycardia Summary of EKG Findings: sinus tachycardia at 91 bpm, normal UT, normal QRS, normal QTc, normal axis, normal ST, T waves flattened in V2, V3, V5, V6. nonspecific EKG. Interpreted by Dr. Richard Mathur at 1905 02/24/19. Re-Evaluation - Re-Evaluation First Eval Re-Evaluation Time: 22:28 Abdominal Pain Fem Course/Dx - Course Course Of Treatment: The pt is a 18 y/o F presenting to [facility] with a CC of N/V/ D. The pt has chronic renal failure and has been suffering from diarrhea since yesterday, nausea today with 6 instances of vomiting, flank pain, cramping, and a fever. The pt denies any CP, chills, sweating, fatigue, and changes in urine or urinary symptoms. The pt has abnormal lab values in Alkaline Phosphatase of 754,. upon her PE she is found to have RUQ and LUQ tenderness, BUN, Creatinine, BUN/Creatinine ratio, and C-Reactive Protein of 36.93. Her CXR shows no acute disease. her Gallbladder US shows no acute abnormality. Her EKG shows sinus tachycardia at 91 bpm, normal UT, normal QRS, normal QTc, normal axis, normal ST, T waves flattened in V2, V3, V5, V6. nonspecific EKG. She received Zofran and APAP during her ED course. On re-evaluation, the patient is tolerating po intake and feeling much better. Pt will be discharged with a DX of nausea, vomitting, and abdominal pain due to her imagining results finding no acute pathologies. The pt will be instructed to follow up with her PCP for the elevated Alkaline Phosphatase and return to the ED with any new or worsening symptoms. - Diagnoses Provider Diagnoses: Nausea & vomiting, Abdominal pain Discharge - Sign-Out/Discharge Documenting (check all that apply): Patient Departure - discharge Patient Received Moderate/Deep Sedation with Procedure: No - Discharge Plan Condition: Stable Disposition: HOME Patient Education Materials: Acute Nausea and Vomiting (ED), Acute Abdominal Pain (ED) Print Language: IRISH Referrals: Hayder Mansfield MD [Primary Care Provider] - Additional Instructions: Your Alkaline Phosphatase is elevated. This needs to be reviewed with your primary care doctor. - Billing Disposition and Condition Condition: STABLE Disposition: Home - Attestation Statements Document Initiated by Eboni: Yes Documenting Scribe: Dann Ordonez Provider For Whom Eboni is Documenting (Include Credential): Ana Maria Mathur MD Scribe Attestation: IDann, omied for Ana Maria Mcfarlane MD on 02/24/19 at 2234. Scribe Documentation Reviewed: Yes Provider Attestation: The documentation as recorded by the Dann cruz accurately reflects the service I personally performed and the decisions made by me, Ana Maria Mcfarlane MD Status of Scribe Document: Viewed
[2019-02-24] MEDS ORDERED: Ondansetron ODT TAB* 4 MG PO ONE (18:45)
[2019-02-24] MEDS ORDERED: Acetaminophen TAB* 325 MG PO ONE (18:48)
[2019-02-24 19:19] LABS: ABS Lymphocytes 0.4 10^3/ul (1.0-4.8); ABS Monocytes 0.5 10^3/ul (0-0.8); ABS Neutrophils 5.4 10^3/ul (1.5-7.7); Eosinophil % 0.4 %; Hematocrit 35 % (35-47); Hemoglobin 11.3 g/dL (12.0-16.0); Mean Corpuscular HGB Conc 33 g/dL (31-36); Mean Corpuscular Hemoglobin 30 pg (27-31); Mean Corpuscular Volume 92 fL (80-97); Mean Platelet Volume 8.8 fL (7.4-10.4); Platelet Count 332 10^3/uL (150-450); Red Blood Count 3.78 10^6 /uL (3.70-4.87); Red Cell Distribution Width 17 % (10-15); White Blood Count 6.3 10^3/uL (3.5-10.8)
[2019-02-24 19:31] LABS: Activated Partial Thrombo Time 34.5 seconds (26.0-38.0); INR 1.01 (0.82-1.09)
[2019-02-24 19:54] LABS: Albumin 4.3 g/dL (3.2-5.2); Albumin/Globulin Ratio 1.2 (1-3); BUN/Creatinine Ratio 5.2 (8-20); C Reactive Protein 36.93 mg/L (<8.01); Calcium 7.4 mg/dL (8.6-10.3); EGFR African American 11.9 (>60); EGFR Non-African American 9.8 (>60); Globulin 3.6 g/dL (2-4); Potassium 4.3 mmol/L (3.5-5.0); Total Bilirubin 0.6 mg/dL (0.2-1.0); Total Protein 7.9 g/dL (6.4-8.9)
[2019-02-24 19:58] LABS: HCG Pregnancy 13.12 mIU/mL
[2019-02-24 22:30] VITALS: BP 122/77
== END 2019-02-24 22:37 | disposition home or self-care (01) ==
LOC: ED 16:23
DX: R11.2 Nausea with vomiting, unspecified (principal); R10.9 Unspecified abdominal pain; I12.0 Hypertensive chronic kidney disease with stage 5 chronic kidney disease or end stage renal disease; N18.6 End stage renal disease; Z99.2 Dependence on renal dialysis; Z79.899 Other long term (current) drug therapy
CPT/HCPCS: 36415; 71045; 76705; 80053; 83605; 83690; 84484; 84702; 85025; 85610; 85730; 86140; 87040; 93005; 99283; A9270-GY

== ENCOUNTER 2019-05-15 18:05 | Emergency (ER) | payer MEDICARE, MEDICAID ==
--- NOTE | 2019-05-15 18:49 | ED ---
Lower Extremity - HPI Summary HPI Summary: Patient complains of right knee pain starting when she stood up from a sitting position today at the gym. States initial pain was mild, but pain worsening with ambulation and flexion. Minimal pain when leg at rest and nonweightbearing. Patient denies any other pain, injury or symptoms. History of ESRD. - History of Current Complaint Chief Complaint: EDExtremityLower Stated Complaint: RIGHT KNEE PAIN PER PT Time Seen by Provider: 05/15/19 18:38 Hx Obtained From: Patient Mechanism Of Injury: Unknown Onset of Pain: Hours Onset/Duration: Hours Severity Initially: Severe Severity Currently: Severe Pain Intensity: 8 Pain Scale Used: 0-10 Numeric Timing: Constant Location: Is Discrete @ Character Of Pain: Dull, Aching, Throbbing Associated Signs And Symptoms: Positive: Knee Pain. Negative: Swelling, Redness Aggravating Factor(s): Standing, Ambulation, Movement Alleviating Factor(s): Rest, Ice Able to Bear Weight: Yes - Allergies/Home Medications Allergies/Adverse Reactions: Allergies Allergy/AdvReac Type Severity Reaction Status Date / Time NSAIDS (Non-Steroidal Allergy See Comment Verified 02/24/19 16:29 Anti-Inflamma PMH/Surg Hx/FS Hx/Imm Hx Endocrine/Hematology History: Reports: Hx Blood Transfusions, Hx Thyroid Disease - Hyperthyroid, Hx Anemia Cardiovascular History: Reports: Hx Hypertension Respiratory History: Reports: Hx Seasonal Allergies Denies: Hx Asthma History: Reports: Hx Chronic Renal Failure, Hx Dialysis, Hx Renal Disease, Other Problems/Disorders - UTI post kidney transplant, failed kidney transplant Sensory History: Denies: Hx Contacts or Glasses, Hx Legally Blind, Hx Deafness, Hx Hearing Aid , Hx Hearing Problem Opthamlomology History: Denies: Hx Contacts or Glasses, Hx Legally Blind Neurological History: Reports: Hx Headaches, Hx Seizures Psychiatric History: Reports: Hx Anxiety, Hx Depression Denies: Hx Eating Disorder, Hx of Violent Episodes Against Others - Cancer History Cancer Type, Location and Year: None reported - Surgical History Surgery Procedure, Year, and Place: s/p kidney transplant surgery 3 yrs ago, failed. appendectomy Hx Anesthesia Reactions: No - Immunization History Date of Tetanus Vaccine: Unk Date of Influenza Vaccine: Fall 2014 Infectious Disease History: No Infectious Disease History: Reports: Hx Clostridium Difficile Denies: Traveled Outside the [place] in Last 30 Days - Family History Known Family History: Positive: Hypertension, Other - schizophrenia Negative: Cardiac Disease, Diabetes - Social History Alcohol Use: None Hx Substance Use: No Substance Use Type: Reports: None Hx Tobacco Use: No Smoking Status (MU): Never Smoked Tobacco Review of Systems Constitutional: Negative Eyes: Negative ENT: Negative Cardiovascular: Negative Respiratory: Negative Gastrointestinal: Negative Genitourinary: Negative Musculoskeletal: Other Skin: Negative Neurological: Negative Psychological: Normal All Other Systems Reviewed And Are Negative: Yes Physical Exam - Summary Physical Exam Summary: No swelling, erythema, ecchymosis, deformity noted to right knee. Patient has normal flexion and extension with pain. Pain with palpation of the lateral right knee. Triage Information Reviewed: Yes Vital Signs On Initial Exam: Initial Vitals Temp Pulse Resp BP Pulse Ox 99.2 F 100 16 121/81 98 05/15/19 18:11 05/15/19 18:11 05/15/19 18:11 05/15/19 18:11 05/15/19 18:11 Vital Signs Reviewed: Yes Appearance: Positive: Well-Appearing Skin: Positive: Warm Head/Face: Positive: Normal Head/Face Inspection Eyes: Positive: Normal Neck: Positive: Supple Respiratory/Lung Sounds: Positive: Clear to Auscultation Cardiovascular: Positive: Normal Abdomen Description: Positive: Nontender Musculoskeletal: Positive: Normal Neurological: Positive: Normal Psychiatric: Positive: Normal AVPU Assessment: Alert - [place] Coma Scale Best Eye Response: 4 - Spontaneous Best Motor Response: 6 - Obeys Commands Best Verbal Response: 5 - Oriented Coma Scale Total: 15 Diagnostics - Vital Signs Vital Signs Temp Pulse Resp BP Pulse Ox 05/15/19 18:11 99.2 F 100 16 121/81 98 - Laboratory Lab Statement: Any lab studies that have been ordered have been reviewed, and results considered in the medical decision making process. Lower Extremity Course/Dx - Course Course Of Treatment: Patient complains of right knee pain starting when she stood up from a sitting position today at the gym. States initial pain was mild , but pain worsening with ambulation and flexion. Minimal pain when leg at rest and nonweightbearing. Patient denies any other pain, injury or symptoms. History of ESRD. Vital signs within normal limits. X-ray right knee negative for fracture. Crutches and knee immobilizer provided. Follow-up with ortho - Diagnoses Provider Diagnoses: Knee pain, right Discharge ED - Sign-Out/Discharge Documenting (check all that apply): Patient Departure Patient Received Moderate/Deep Sedation with Procedure: No - Discharge Plan Condition: Stable Disposition: HOME Patient Education Materials: Knee Pain (ED) Referrals: Hayder Mansfiled MD [Primary Care Provider] - Chris Tamayo MD [Medical Doctor] - Additional Instructions: Tylenol for pain. Weightbearing as tolerated. Follow-up with orthopedics Dr. Tamayo for further evaluation. - Billing Disposition and Condition Condition: STABLE Disposition: Home - Attestation Statements Provider Attestation: I was available for consult. This patient was seen by the [facility]. The patient was not presented to, seen by, or examined by me. Nathan Pederson MD
[2019-05-15] MEDS ORDERED: Acetaminophen TAB* 325 MG PO ONE ×2 (19:28)
[2019-05-15 20:45] VITALS: BP 139/100
== END 2019-05-15 20:47 | disposition home or self-care (01) ==
LOC: ED 18:05
DX: M25.561 Pain in right knee (principal); F41.9 Anxiety disorder, unspecified; F32.9 Major depressive disorder, single episode, unspecified; I12.0 Hypertensive chronic kidney disease with stage 5 chronic kidney disease or end stage renal disease; N18.6 End stage renal disease; D63.1 Anemia in chronic kidney disease; E05.90 Thyrotoxicosis, unspecified without thyrotoxic crisis or storm; Z99.2 Dependence on renal dialysis; Z79.899 Other long term (current) drug therapy; Z88.6 Allergy status to analgesic agent
CPT/HCPCS: 99282; A9270-GY

== ENCOUNTER 2019-07-24 20:05 | Emergency (ER) | payer MEDICARE, MEDICAID ==
[2019-07-24] MEDS ORDERED: Morphine 4 MG/ML VIAL (1 ml) 4 MG/ML VIAL IV ONE (20:34)
[2019-07-24] MEDS ORDERED: Ondansetron INJ* 2 MG/ML VIAL IV ONE (20:34)
[2019-07-24] MEDS ORDERED: Lisinopril TAB* 5 MG PO ONE (20:34)
[2019-07-24] MEDS ORDERED: Morphine 4 MG/ML VIAL (1 ml) 4 MG/ML VIAL IV PRN (20:34)
--- OUTSIDE RECORDS SUMMARY | 2019-07-24 20:42 | XMS REPORT | Continuity of Care Document ---
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 [phone] Problems Active Problems Provider Date End-stage renal disease Hayder Mansfield MD Onset: 06/05/2018 Anxiety state Hayder Mansfield MD Onset: 06/05/2018 Essential hypertension Hayder Mansfield MD Onset: 06/05/2018 Hyperkalemia Hayder Mansfield MD Onset: 07/20/2018 Recurrent major depressive episodes Hayder Mansfield MD Onset: 07/20/2018 Polyarteritis nodosa Hayder Mansfield MD Onset: 09/25/2018 Myalgia, unspecified site Hayder Mansfield MD Onset: 09/25/2018 Panic disorder without agoraphobia Hayder Mansfield MD Onset: 09/25/2018 Social History Type Date Description Comments Sex Unknown Tobacco Use Start: Unknown Patient has never smoked Smoking Status Reviewed: 06/01/19 Patient has never smoked Allergies, Adverse Reactions, Alerts Active Allergies Reaction Severity Comments Date Ibuprofen 09/02/2018 Inactive Allergies NKDA 06/05/2018 Medications Active Medications SIG Qnty Indications Ordering Date Provider Cyclobenzaprine HCL 1 tab as needed 45tabs M25.562 Hayder Mansfield MD 2018 5mg for muscle Tablets spasm/pain Alprazolam one to two tabs 60tabs F41.0 Hayder Mansfield MD 09/02/2018 0.25mg Tablets by mouth daily as needed for panic attack Procrit prn/dialysis Hayder Mansfield MD 07/20/2018 2000Unit/ML Solution Orfadin prn/dialysis Hayder Mansfield MD 07/20/2018 4mg/ml Suspension Venlafaxine HCL ER take 1 tab 30caps F41.9 Estrella Mendes, 06/05/2018 150mg Caps daily DO ER 24HR Lisinopril 1 by mouth Unknown 5mg Tablets every day Zofran take 1/2 to 1 Unknown 8mg Tablets tablet every 12 hours as needed for nausea Renvela 2 tabs with Unknown 800mg Tablets meal and snacks Ortho Tri-Cyclen Lo 1 by mouth Unknown every day 0.18/0.215/0.25 mg-25 mcg Tablets Amlodipine Besylate 1 by mouth Unknown 2.5mg every day Tablets History Medications Flonase Allergy two sprays per 15.800ml J30.9 Hayder Mansfield MD 12/21/2018 - Relief nostril once daily 06/01/2019 50mcg/Act Suspension Nasal Decongestant Use once or twice 15ml J30.9 Hayder Mansfield MD 12/21/2018 - [place] daily as needed 06/01/2019 0.05% Solution for nasal congestion Immunizations Description No Information Available Vital Signs Date Vital Result Comment 06/01/2019 3:13pm Height 62 inches 5'2" Weight 106.50 lb Heart Rate 113 /min BP Systolic 145 mmHg BP Diastolic 103 mmHg Body Temperature 97.8 F O2 % BldC Oximetry 97 % BMI (Body Mass Index) 19.5 kg/m2 12/21/2018 10:24am Weight 102.00 lb Heart Rate 84 /min BP Systolic 108 mmHg BP Diastolic 90 mmHg Respiratory Rate 18 /min Body Temperature 97.9 F O2 % BldC Oximetry 98 % Results Test Date Facility Test Result H/L Range Note Laboratory test 04/27/2019 [facility] Potassium 3.7 mmol/L Normal 3.5-5.[address] [place] [address] [phone] Direct Bilirubin Redraw 0.00 mg/dL Low 0.03-0.18 Ast Redraw 11 U/L Low 13-39 Basic Metabolic 04/27/2019 [facility] Sodium 139 mmol/L Normal 135-[address] [place] [address] [phone] Chloride 99 mmol/L Low 101-111 Co2 Carbon Dioxide 24 mmol/L Normal 22-32 Calcium 7.2 mg/dL Low 8.6-10.3 Glucose 131 mg/dL High 70-100 Blood Urea Nitrogen 44 mg/dL High 6-24 Creatinine 6.02 mg/dL High 0.51-0.95 BUN/Creatinine Ratio 7.3 Low 8-20 Egfr Non- 8.9 >60 Egfr 10.8 >60 1 Potassium TNP mmol/L 3.5-5.0 2 Anion Gap 16 mmol/L High 2-11 Liver Function 04/27/2019 [facility] Albumin 4.1 g/dL Normal 3.2-5.2 Panel [address] [place] [address] [phone] Total Bilirubin 0.30 mg/dL Normal 0.2-1.0 Total Protein 7.5 g/dL Normal 6.4-8.9 Globulin 3.4 g/dL Normal 2-4 Albumin/Globulin Ratio 1.2 Normal 1-3 Alkaline Phosphatase 713 U/L High 34-104 Alt 7 U/L Normal 7-52 Direct Bilirubin TNP mg/dL 0.03-0.18 3 Ast TNP U/L 13-39 4 Indirect Bilirubin TNP mg/dL 0.3-1.0 Laboratory test 04/27/2019 [facility] Point of 157 mg/dL High 70-100 5 finding [address] [place] [address] [phone] Laboratory test 04/26/2019 [facility] Point of 138 mg/dL High 70-100 6 finding [address] [place] [address] [phone] Laboratory test 04/26/2019 [facility] Point of 153 mg/dL High 70-100 7 finding [address] [place] [address] [phone] CBC Auto Diff 04/26/2019 [facility] White Blood 8.3 Normal 3.5 -10.[address] Count 10^3/[place] [address] [phone] Red Blood Count 3.90 10^6/uL Normal 3.70-4.87 9 Hemoglobin 11.7 g/dL Low 12.0-16.0 10 Hematocrit 37 % Normal 35-47 11 Mean Corpuscular Volume 96 fL Normal 80-97 12 Mean Corpuscular Hemoglobin 30 pg Normal 27-31 13 Mean Corpuscular HGB Conc 31 g/dL Normal 31-36 14 Red Cell Distribution Width 16 % High 10-15 15 Platelet Count 308 10^3/uL Normal 150-450 16 Mean Platelet Volume 8.7 fL Normal 7.4-10.4 17 Abs Neutrophils 6.8 10^3/uL Normal 1.5-7.7 18 Abs Lymphocytes 1.0 10^3/uL Normal 1.0-4.8 19 Abs Monocytes 0.5 10^3/uL Normal 0-0.8 20 Abs Eosinophils 0.1 10^3/uL Normal 0-0.6 21 Abs Basophils 0.0 10^3/uL Normal 0-0.2 22 Abs Nucleated RBC 0.0 10^3/uL 23 Granulocyte % 81.0 % 24 Lymphocyte % 11.4 % 25 Monocyte % 6.2 % 26 Eosinophil % 1.0 % 27 Basophil % 0.4 % 28 Nucleated Red Blood Cells % 0.1 29 Basic Metabolic 04/26/2019 [facility] Sodium 134 mmol/L Low 135-[address] [place] [address] [phone] Chloride 93 mmol/L Low 101-111 Co2 Carbon Dioxide 30 mmol/L Normal 22-32 Calcium 6.8 mg/dL Low 8.6-10.3 Potassium 6.5 mmol/L Critical high 3.5-5.0 30 Anion Gap 11 mmol/L Normal 2-11 Glucose 121 mg/dL High 70-100 Blood Urea Nitrogen 33 mg/dL High 6-24 Creatinine 5.46 mg/dL High 0.51-0.95 BUN/Creatinine Ratio 6.0 Low 8-20 Egfr Non- 10.0 >60 Egfr 12.1 >60 31 Laboratory test 04/26/2019 [facility] HCG 5.36 mIU/mL [address] [place] [address] [phone] CBC Auto Diff 02/24/2019 [facility] White Blood 6.3 10^3/uL Normal 3.5-[address] Count 0.8 [place] [address] [phone] Red Blood Count 3.78 10^6/uL Normal 3.70-4.87 Hemoglobin 11.3 g/dL Low 12.0-16.0 Hematocrit 35 % Normal 35-47 Mean Corpuscular Volume 92 fL Normal 80-97 Mean Corpuscular Hemoglobin 30 pg Normal 27-31 Mean Corpuscular HGB Conc 33 g/dL Normal 31-36 Red Cell Distribution Width 17 % High 10-15 Platelet Count 332 10^3/uL Normal 150-450 Mean Platelet Volume 8.8 fL Normal 7.4-10.4 Abs Neutrophils 5.4 10^3/uL Normal 1.5-7.7 Abs Lymphocytes 0.4 10^3/uL Low 1.0-4.8 Abs Monocytes 0.5 10^3/uL Normal 0-0.8 Abs Eosinophils 0.0 10^3/uL Normal 0-0.6 Abs Basophils 0.0 10^3/uL Normal 0-0.2 Abs Nucleated RBC 0.0 10^3/uL Granulocyte % 86.1 % Lymphocyte % 6.0 % Monocyte % 7.5 % Eosinophil % 0.4 % Basophil % 0.0 % Nucleated Red Blood Cells % 0.0 Inr/Protime 02/24/2019 [facility] Inr 1.01 Normal 0.82-1.[address] [place] [address] [phone] Laboratory test 02/24/2019 [facility] Partial 34.5 Normal 26.0 -38.[address] [place] [address] Time PTT [phone] Troponin-I (TnI) 0.00 ng/mL <0.04 34 Comp Metabolic Panel 02/24/2019 [facility] Sodium 133 mmol/L Low 135-[address] [place] [address] [phone] Potassium 4.3 mmol/L Normal 3.5-5.0 Chloride 89 mmol/L Low 101-111 Co2 Carbon Dioxide 25 mmol/L Normal 22-32 Anion Gap 19 mmol/L High 2-11 Glucose 72 mg/dL Normal 70-100 Blood Urea Nitrogen 29 mg/dL High 6-24 Creatinine 5.54 mg/dL High 0.51-0.95 BUN/Creatinine Ratio 5.2 Low 8-20 Calcium 7.4 mg/dL Low 8.6-10.3 Total Protein 7.9 g/dL Normal 6.4-8.9 Albumin 4.3 g/dL Normal 3.2-5.2 Globulin 3.6 g/dL Normal 2-4 Albumin/Globulin Ratio 1.2 Normal 1-3 Total Bilirubin 0.60 mg/dL Normal 0.2-1.0 Alkaline Phosphatase 745 U/L High 34-104 Alt 7 U/L Normal 7-52 Ast 18 U/L Normal 13-39 Egfr Non- 9.8 >60 Egfr 11.9 >60 35 Laboratory test 02/24/2019 [facility] Lipase 31 U/L Normal 11.0-82.[address] [place] [address] [phone] C Reactive Protein 36.93 mg/L High <8.01 HCG 13.12 mIU/mL 36 Lactic Acid 1.2 mmol/L Normal 0.5-2.0 37 Blood Culture SEE RESULT BELOW 38 1 Because ethnic data is not always readily available, this report includes an eGFR for both -Americans and non- Americans. The National Kidney Disease Education Program (NKDEP) does not endorse the use of the MDRD equation for patients that are not between the ages of 18 and 70, are , have extremes of body size, muscle mass, or nutritional status, or are non- or non-. According to the National Kidney Foundation, irrespective of diagnosis, the stage of the disease is based on the level of kidney function: Stage Description GFR(mL/min/1.73 m(2)) 1 Kidney damage with normal or decreased GFR 90 2 Kidney damage with mild decrease in GFR 60-89 3 Moderate decrease in GFR 30-59 4 Severe decrease in GFR 15-29 5 Kidney failure <15 (or dialysis) 2 Specimen Hemolyzed. Result may not be valid. Unable to report test result due to hemolysis. 3 Unable to report test result due to hemolysis. 4 Unable to report test result due to hemolysis. 5 Licensed Embalmer: [id number] Licensed Embalmer: [id number] Licensed Embalmer: [id number] 8 P 9 P 10 P 11 P 12 P 13 P 14 P 15 P 16 P 17 P 18 P 19 P 20 P 21 P 22 P 23 P 24 P 25 P 26 P 27 P 28 P 29 P 30 Critical Result K:6.5 Called to [id number] at: 21:28:09 by:[id number] Read back by:[id number] 31 Because ethnic data is not always readily available, this report includes an eGFR for both -Americans and non- Americans. The National Kidney Disease Education Program (NKDEP) does not endorse the use of the MDRD equation for patients that are not between the ages of 18 and 70, are , have extremes of body size, muscle mass, or nutritional status, or are non- or non-. According to the National Kidney Foundation, irrespective of diagnosis, the stage of the disease is based on the level of kidney function: Stage Description GFR(mL/min/1.73 m(2)) 1 Kidney damage with normal or decreased GFR 90 2 Kidney damage with mild decrease in GFR 60-89 3 Moderate decrease in GFR 30-59 4 Severe decrease in GFR 15-29 5 Kidney failure <15 (or dialysis) 32 <5.0 Negative 5.0 - 25.0 Indeterminate (Repeat testing recommended after 72 hours) >25.0 Positive Perimenopausal women can display HCG levels of up to 20 mIU/mL 33 Standard intensity warfarin therapeutic range: 2.0-3.0 High intensity warfarin therapeutic range: 2.5-3.5 34 Troponin-I testing on Plasma Separator Tubes (PST) has a known false positive rate of 0.20-0.40%. All positive troponins reflex immediately to secondary confirmatory testing. Using the Watt[employer] DxI 800 Access Immunoassay systems, the 99th percentile upper reference limit was demonstrated to be < 0.03 ng/mL. 35 Because ethnic data is not always readily available, this report includes an eGFR for both -Americans and non- Americans. The National Kidney Disease Education Program (NKDEP) does not endorse the use of the MDRD equation for patients that are not between the ages of 18 and 70, are , have extremes of body size, muscle mass, or nutritional status, or are non- or non-. According to the National Kidney Foundation, irrespective of diagnosis, the stage of the disease is based on the level of kidney function: Stage Description GFR(mL/min/1.73 m(2)) 1 Kidney damage with normal or decreased GFR 90 2 Kidney damage with mild decrease in GFR 60-89 3 Moderate decrease in GFR 30-59 4 Severe decrease in GFR 15-29 5 Kidney failure <15 (or dialysis) 36 <5.0 Negative 5.0 - 25.0 Indeterminate (Repeat testing recommended after 72 hours) >25.0 Positive Perimenopausal women can display HCG levels of up to 20 mIU/mL 37 [facility] Severe Sepsis and Septic Shock Management Bundle Measure requires all lactic acids initially measuring >2.0 mmol/L be repeated. 38 SEE RESULT BELOW Name: CARISA SAUCEDA : [address]: Ana Maria Isaac Acct: [id number] Unit: [id number] AGE: 18 Location: ED Re02/24/19 SEX: F Status: DEP ER SPEC: [id number] CARL: 02/24/[address] [facility] DR: Ana Maria Mcfarlane MD REQ: [id number] RECD: 02/24/19 STATUS: CAROLYNE XIAO DR: Hayder Mansfield MD _ SOURCE: BLOOD,VENO SPDESC: ORDERED: Blood Cult Procedure Result Reported Site Aerobic Culture Bottle Final 03/01/19- 1950 ML No Growth Day 5 Anaerobic Culture Bottle Final 03/01/19- 1950 ML No Growth Day 5 * ML - Main Lab . END OF REPORT DEPARTMENT OF PATHOLOGY, [address] [place] [address] Paulino Dewitt M.D. Director [facility] # [id number] Procedures Description No Information Available Medical Devices Description No Information Available Encounters Type Date Location Provider Dx Diagnosis Office Visit 04/27/2019 [facility] Charo Zaman, E87.5 Hyperkalemia 9:[facility] PA-C E83.51 Hypocalcemia R11.0 Nausea I10 Essential (primary) hypertension F32.9 Major depressive disorder, single episode, unspecified F41.9 Anxiety disorder, unspecified Office Visit 12/21/2018 10:20a DO Not Use Care Hayder Mansfield J30.9 Allergic rhinitis, Connections unspecified [facility] J01.90 Acute sinusitis, unspecified Assessments Date Code Description Provider 06/01/2019 M25.562 Pain in left knee Hayder Mansfield MD 06/01/2019 M25.561 Pain in right knee Hayder Mansfield MD 06/01/2019 F41.0 Panic disorder [episodic paroxysmal anxiety] Hayder Mansfield MD 04/27/2019 E87.5 Hyperkalemia Charo Zaman PA-C 04/27/2019 E83.51 Hypocalcemia LIZ PuckettC 04/27/2019 R11.0 Nausea LIZ PuckettC 04/27/2019 I10 Essential (primary) hypertension LIZ PuckettC 04/27/2019 F32.9 Major depressive disorder, single episode, Charo Zaman PA-C unspecified 04/27/2019 F41.9 Anxiety disorder, unspecified LIZ PuckettC 12/21/2018 J30.9 Allergic rhinitis, unspecified Hayder Mansfield MD 12/21/2018 J01.90 Acute sinusitis, unspecified Hayder Mansfield MD Plan of Treatment 06/01/2019 - Hayder Mansfield, MDM25.562 Pain in left kneeNew Medication: Cyclobenzaprine HCL 5 mg - 1 tab as needed for muscle spasm/painNew Therapy: Physical TherapyReferral:Gabirela Serrano MD, Sports Medicine:Family prFollow up: as needed.M25.561 Pain in right kneeF41.0 Panic disorder [episodic paroxysmal anxiety] Functional Status Description No Information Available Mental Status Description No Information Available Referrals Refer to Dr Reason for Referral Status Appt Date Gabriela Serrano MD left knee pain after fall. effusion, buckling. no Created fracture on outside imaging. [address] [facility] [address] [place] [address] [phone]
[2019-07-24] MEDS ORDERED: Ondansetron ODT TAB* 4 MG ONE (20:44)
[2019-07-24] MEDS ORDERED: Ondansetron ODT TAB* 4 MG PO ONE (20:47)
--- NOTE | 2019-07-24 20:48 | ED ---
GI/ HPI - HPI Summary HPI Summary: This patient is a 18 year old F presenting to [facility] accompanied be 2 female friends with a chief complaint of digestive issues constant since 2-3 weeks worsening tonight, 07/24/10. Symptoms aggravated by food. Symptoms alleviated by nothing. CC described as swelling in stomach, burping, nausea, and not being able to eat much food. Pt reports tonight got sharp and spread to back suddenly with her stomach becoming tender to touch and largely swollen. Pt reports pain wakes her up at night and she has to burp to relieve some pain. Pt reports she usually has no appetite due to dialysis but past 2 weeks could not eat at all. Hx abdominal surgery (appendectomy, partial intestine removal due to infection and parietal cavity, biopsy of both kidneys, feeding tubes). Denies hx ulcers. Hx gallbladder issues and potassium issues. Pt currently feels heart pressure increasing possibly due to pain getting worse. - History of Current Complaint Chief Complaint: EDAbdPain Time Seen by Provider: 07/24/19 20:10 Stated Complaint: ABD PAIN PER EMS Hx Obtained From: Patient Onset/Duration: Started Weeks Ago - 2-3, Still Present Timing: Constant Pain Intensity: 7 Pain Characteristics: Sharp, Other: - tender to touch Pain Radiates to: Back Associated Signs and Symptoms: Positive: Nausea, Change in Appetite - loss of, Other: - stomach swelling, burping Aggravating Factor(s): Food Alleviating Factor(s): Nothing - Additional Pertinent History Primary Care Physician: ANATOLY - Allergy/Home Medications Allergies/Adverse Reactions: Allergies Allergy/AdvReac Type Severity Reaction Status Date / Time NSAIDS (Non-Steroidal Allergy See Comment Verified 07/24/19 20:10 Anti-Inflamma Home Medications: Home Medications Sevelamer TAB* [Renvela TAB*] 2 tab PO AC 07/24/19 [History Confirmed 07/24/19] PMH/Surg Hx/FS Hx/Imm Hx Endocrine/Hematology History: Reports: Hx Blood Transfusions, Hx Thyroid Disease - Hyperthyroid, Hx Anemia Cardiovascular History: Reports: Hx Hypertension Respiratory History: Reports: Hx Seasonal Allergies Denies: Hx Asthma History: Reports: Hx Chronic Renal Failure, Hx Dialysis, Hx Renal Disease, Other Problems/Disorders - UTI post kidney transplant, failed kidney transplant Sensory History: Denies: Hx Contacts or Glasses, Hx Legally Blind, Hx Deafness, Hx Hearing Aid , Hx Hearing Problem Opthamlomology History: Denies: Hx Contacts or Glasses, Hx Legally Blind Neurological History: Reports: Hx Headaches, Hx Seizures Psychiatric History: Reports: Hx Anxiety, Hx Depression Denies: Hx Eating Disorder, Hx of Violent Episodes Against Others - Cancer History Cancer Type, Location and Year: None reported - Surgical History Surgery Procedure, Year, and Place: s/p kidney transplant surgery 3 yrs ago, failed. appendectomy Hx Anesthesia Reactions: No - Immunization History Date of Tetanus Vaccine: utd Date of Influenza Vaccine: fall 2018 Infectious Disease History: No Infectious Disease History: Reports: Hx Clostridium Difficile Denies: Traveled Outside the [place] in Last 30 Days - Family History Known Family History: Positive: Hypertension, Other - schizophrenia Negative: Cardiac Disease, Diabetes - Social History Alcohol Use: None Hx Substance Use: No Substance Use Type: Reports: None Hx Tobacco Use: No Smoking Status (MU): Never Smoked Tobacco Review of Systems Positive: Nausea, Other - swelling in stomach, burping, loss of appetite All Other Systems Reviewed And Are Negative: Yes Physical Exam - Summary Physical Exam Summary: Appearance: Well-appearing, Well-nourished, lying in bed comfortably Skin: Warm, dry, no obvious rash Eyes: sclera anicteric, no conjunctival pallor ENT: mucous membranes moist, pharynx appears normal Neck: Supple, nontender Respiratory: Clear to auscultation, no signs of respiratory distress Cardiovascular: Normal S1, S2. No murmurs. Normal distal pulses in tibial and radial bilaterally. Abdomen: right upper quadrant tenderness with referred rebound and guarding Musculoskeletal: Strength/ROM Intact, left arm has fistula with good thrill and pulse. Neurological: A&Ox3, awake and alert, mentation is normal, speech is fluent and appropriate Psychiatric: affect is normal, does not appear anxious or depressed Triage Information Reviewed: Yes Vital Signs On Initial Exam: Initial Vitals Temp Pulse Resp BP Pulse Ox 99.9 F 107 20 159/115 100 07/24/19 20:08 07/24/19 20:08 07/24/19 20:08 07/24/19 20:08 07/24/19 20:08 Vital Signs Reviewed: Yes Procedures - Sedation Patient Received Moderate/Deep Sedation with Procedure: No Diagnostics - Vital Signs Vital Signs Temp Pulse Resp BP Pulse Ox 07/24/19 20:08 99.9 F 107 20 159/115 100 - Laboratory Result Diagrams: 07/24/19 21:10 07/24/19 21:10 Lab Statement: Any lab studies that have been ordered have been reviewed, and results considered in the medical decision making process. - Ultrasound Gallbladder US Ultrasound Interpretation Completed By: Radiologist Summary of Ultrasound Findings: Per radiologist,. 1. No gallstone or secondary evidence of cholecystitis. 2. 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 3. Borderline dilatation pancreatic duct 3 mm in diameter. 4. Small unexplained hyperechoic focus in the IVC. Has there been any previous. intervention to account for this? There is no occluding thrombus. ED physician has reviewed this imaging report. Re-Evaluation - Re-Evaluation First Eval Re-Evaluation Time: 03:57 Comment: pt will be discharged GIGU Course/Dx - Course Course Of Treatment: This patient is a 18 year old F presenting to [facility] accompanied be 2 female friends with a chief complaint of digestive issues constant since 2-3 weeks worsening tonight, 07/24/10. Symptoms aggravated by food. CC described as swelling in stomach, burping, nausea, and not being able to eat much food. Pt reports tonight got sharp and spread to back suddenly with her stomach becoming tender to touch and largely swollen. Pt reports pain wakes her up at night and she has to burp to relieve some pain. Pt reports she usually has no appetite due to dialysis but past 2 weeks could not eat at all. Hx abdominal surgery . Denies hx ulcers. Hx gallbladder issues and potassium issues. Physical Exam Findings reveals no abnormalities except for right upper quadrant tenderness with referred rebound and guarding, left arm has fistula with good thrill and pulse. Gallbladder US reveals 1. No gallstone or secondary evidence of cholecystitis. 2. 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 3. Borderline dilatation pancreatic duct 3 mm in diameter. 4. Small unexplained hyperechoic focus in the IVC. Has there been any previous. intervention to account for this? There is no occluding thrombus. Test results with no significant abnormalities expect for Hgb 11.2 L, Hct 34 L, RDW 17 H, Potassium 3.2 L, Chloride 94 L, Anion Gap 14 H, BUN 33 H, Creatinine 6.20 H, BUN /Creatinine 5.3 L, AST 12 L, ALT 5 L, Alkaline Phosphatase 418 H. In the ED course the patient was given 0.25 mg Alprazolam PO, 5 mg Lisinopril PO, 4 mg Morphine Sulfate IV, , 4 mg Morphine Sulfate IV, 8 mg Ondansetron HCl PO. Patient will be discharged with dx abdominal pain and follow up from Dr. Mansfield, PCP. The patient is agreeable with this plan. - Diagnoses Provider Diagnoses: Abdominal pain Discharge ED - Sign-Out/Discharge Documenting (check all that apply): Patient Departure - discharge - Discharge Plan Condition: Good Disposition: HOME Patient Education Materials: Abdominal Pain (ED) Referrals: Hayder Mansfield MD [Primary Care Provider] - Additional Instructions: The pattern of your pain being fairly stereotypical and located in the right upper quadrant and precipitated by food would suggest a gall bladder problem to me. While most gall bladder problems are related to gallstones, which did not show on your ultrasound, sometimes the problem is functional. I would talk to your doctor about ordering a test called a CCK-HIDA scan, which would demonstrate a functional gall bladder problem but has to be planned and prepped for. - Billing Disposition and Condition Condition: GOOD Disposition: Home - Attestation Statements Document Initiated by Scribe: Yes Documenting Scribe: Sindhu Leiva Provider For Whom Eboni is Documenting (Include Credential): Dr. Sloan Dotson MD Scribe Attestation: ISindhu, scribed for Dr. Sloan Dotson MD on 07/27/19 at 1832. Scribe Documentation Reviewed: Yes Provider Attestation: The documentation as recorded by the Sindhu cruz accurately reflects the service I personally performed and the decisions made by me, Dr. Sloan Dotson MD Status of Scribe Document: Viewed
[2019-07-24 21:14] LABS: ABS Basophils 0.1 10^3/ul (0-0.2); ABS Eosinophils 0.1 10^3/ul (0-0.6); ABS Lymphocytes 1.1 10^3/ul (1.0-4.8); ABS Monocytes 0.7 10^3/ul (0-0.8); ABS Neutrophils 5.1 10^3/ul (1.5-7.7); Eosinophil % 1.1 %; Hematocrit 34 % (35-47); Hemoglobin 11.2 g/dL (12.0-16.0); Lymphocyte % 16.2 %; Mean Corpuscular HGB Conc 33 g/dL (31-36); Mean Corpuscular Hemoglobin 30 pg (27-31); Mean Corpuscular Volume 91 fL (80-97); Mean Platelet Volume 8.3 fL (7.4-10.4); Platelet Count 280 10^3/uL (150-450); Red Blood Count 3.72 10^6 /uL (3.70-4.87); Red Cell Distribution Width 17 % (10-15)
[2019-07-24 21:31] LABS: Albumin 4.1 g/dL (3.2-5.2); Albumin/Globulin Ratio 1.2 (1-3); BUN/Creatinine Ratio 5.3 (8-20); Calcium 8.9 mg/dL (8.6-10.3); EGFR African American 10.4 (>60); EGFR Non-African American 8.6 (>60); Globulin 3.3 g/dL (2-4); Potassium 3.2 mmol/L (3.5-5.0); Total Bilirubin 0.5 mg/dL (0.2-1.0); Total Protein 7.4 g/dL (6.4-8.9)
[2019-07-24 21:38] LABS: HCG Pregnancy 9.26 mIU/mL
[2019-07-24] MEDS ORDERED: ALPRAZolam TAB* 0.25 MG PO ONE (21:40)
[2019-07-24] MEDS ORDERED: Morphine 4 MG/ML VIAL (1 ml) 4 MG/ML VIAL IM ONE (22:09)
[2019-07-25 04:09] VITALS: BP 160/120
== END 2019-07-25 04:15 | disposition home or self-care (01) ==
LOC: ED 20:05
DX: R10.9 Unspecified abdominal pain (principal); R11.0 Nausea; R63.0 Anorexia; Z79.899 Other long term (current) drug therapy; E03.9 Hypothyroidism, unspecified; I10 Essential (primary) hypertension; N18.9 Chronic kidney disease, unspecified; R94.31 Abnormal electrocardiogram [ECG] [EKG]
CPT/HCPCS: 36415; 76705; 80053; 83605; 83690; 84702; 85025; 93005; 96372; 96374; 99284; A9270-GY; J2270

== ENCOUNTER 2023-05-04 17:11 | Inpatient (IN) ==
[2023-05-04] MEDS ORDERED: cefTRIAXone 1 gm/50 mL D5W 1 GM/50 ML BAG IV ONE (17:38)
[2023-05-04 18:04] LABS: ABS Basophils 0.1 10^3/uL (0.0-0.1); ABS Eosinophils 0.1 10^3/uL (0.0-0.5); ABS Lymphocytes 1.4 10^3/uL (1.0-4.8); ABS Monocytes 1.2 10^3/uL (0.0-0.9); ABS Neutrophils 10.9 10^3/uL (1.5-7.6); ABS Nucleated RBC 0.01 10^3/ul; Eosinophil % 0.4 %; Hemoglobin 9.6 g/dL (11.5-14.3); Lymphocyte % 10.5 %; Mean Corpuscular Hemoglobin 29.3 pg (27-33); Mean Corpuscular Hgb Conc 34.4 g/dL (31-36); Mean Corpuscular Volume 85.4 fL (80-97); Mean Platelet Volume 8.3 fL (7.5-11.2); Nucleated Red Blood Cells % 0.1 /100 WBC (0.0-0.4); Platelet Count 327 10^3/uL (150-450); Red Blood Count 3.28 10^6/uL (3.63-4.92); White Blood Count 13.7 10^3/uL (3.8-11.8)
[2023-05-04 18:21] LABS: Albumin 4.2 g/dL (3.2-5.2); Albumin/Globulin Ratio 1.6 (1-3); Calcium 10.9 mg/dL (8.6-10.3); Creatinine, Serum 1.53 mg/dL (0.51-0.95); Globulin 2.7 g/dL (2-4); Potassium 4.1 mmol/L (3.5-5.0); Total Bilirubin 0.5 mg/dL (0.2-1.0); Total Protein 6.9 g/dL (6.4-8.9); eGFR CKD-EPI 48.4 (>60)
[2023-05-04] MEDS: NS 0.9% 1000 ml BAG 1,000 ML IV ONE ×2 (18:36→22:20)
[2023-05-04 20:57] LABS: C Reactive Protein 107.98 mg/L (<8.01)
[2023-05-04] MEDS ORDERED: Lactated Ringers 1000 ml BAG 1,000 ML IV SCH (21:00)
[2023-05-04 23:53] LABS: % Iron Saturation 10 % (15-55); .Transferrin 138 mg/dL (203-362); Iron < 20 ug/dL (50-212); Total Iron Binding Capacity 193 mcg/dL (250-450); Unsaturated Iron Binding 173 ug/dL
[2023-05-05 00:10] LABS: Ferritin 984.2 ng/mL (11-307)
[2023-05-05 06:54] LABS: ABS Eosinophils 0.1 10^3/uL (0.0-0.5); ABS Lymphocytes 1.5 10^3/uL (1.0-4.8); ABS Monocytes 0.9 10^3/uL (0.0-0.9); ABS Neutrophils 6.4 10^3/uL (1.5-7.6); Eosinophil % 1.3 %; Hematocrit 26.9 % (35-45); Hemoglobin 9.3 g/dL (11.5-14.3); Lymphocyte % 16.6 %; Mean Corpuscular Hgb Conc 34.7 g/dL (31-36); Mean Corpuscular Volume 86.3 fL (80-97); Mean Platelet Volume 8.1 fL (7.5-11.2); Nucleated Red Blood Cells % 0.1 /100 WBC (0.0-0.4); Platelet Count 303 10^3/uL (150-450); Red Blood Count 3.12 10^6/uL (3.63-4.92); Red Cell Distribution Width 14.3 % (12-17)
[2023-05-05 07:08] LABS: Albumin 3.7 g/dL (3.2-5.2); Albumin/Globulin Ratio 1.3 (1-3); Calcium 10.3 mg/dL (8.6-10.3); Creatinine, Serum 1.16 mg/dL (0.51-0.95); Globulin 2.8 g/dL (2-4); Magnesium 1.3 mg/dL (1.9-2.7); Potassium 4.1 mmol/L (3.5-5.0); Total Bilirubin 0.3 mg/dL (0.2-1.0); Total Protein 6.5 g/dL (6.4-8.9); eGFR CKD-EPI 67.5 (>60)
[2023-05-05] MEDS ORDERED: Magnesium Sulfate IV 3 GM in NS 0.9% 100 ml BAG 100 ML IVPB ONE (08:39)
[2023-05-05] MEDS ORDERED: NORETHINDRONE E ESTRADIOL IRON PO SCH (09:00)
[2023-05-05] MEDS ORDERED: Venlafaxine XR 75 mg PO SCH (09:00)
[2023-05-05] MEDS ORDERED: [UNRECOGNIZED DRUG - OTHER] PO SCH (09:00)
[2023-05-05] MEDS ORDERED: Enoxaparin 40 MG/0.4 ML SYR SUBCUT SCH (15:00)
[2023-05-05 16:38] VITALS: BP 136/91
[2023-05-05] MEDS ORDERED: cefTRIAXone 1 gm/50 mL D5W 1 GM/50 ML BAG IV SCH (18:00)
== END 2023-05-05 18:37 | disposition left against medical advice (07) | DRG 720 ==
LOC: ED 17:11 → INTOOBSV 19:11 → OBSVTOIN 19:11 → EDHOLD 19:11 → SUATTDRO 19:11 → EDHOLD 05-05 18:36
PROVIDERS: ADMIT Student in an Organized Health Care Education/Training Program; ATTEND Hospitalist